=== PATIENT | male | born 1950 | race Hispanic/Latino ===

== ENCOUNTER 2017-01-28 19:09 | Inpatient (IN) | payer MEDICARE, BC ==
--- NOTE | 2017-01-28 19:17 | CP.PCM.CON ---
History of Present Illness - History of Present Illness History of Present Illness: Dr Colorado PMR consultation on Kb Park, born 1950, who has been admitted to [facility] for acute inpatient rehabilitation following an admission at [place]. + DKA with sugars >900. In coma for extended period. Started on emergent dialysis. 50 year history of type I diabetes had been well managed with minimal to no sequalae. He is now debilitated and has not been ambulating and is an excellent acute rehab candidate given all of the ongoing significant medical issues and limited gait and ADLs Review of Systems - Constitutional Constitutional: absent: Anorexia, Chills - EENT Eyes: absent: Change in Vision Nose/Mouth/Throat: absent: Nasal Congestion - Cardiovascular Cardiovascular: absent: Chest Pain - Respiratory Respiratory: absent: Dyspnea - Gastrointestinal Gastrointestinal: absent: Constipation - Genitourinary Genitourinary: Other (no voiding on HD) - Musculoskeletal Musculoskeletal: absent: Back Pain - Neurological Neurological: Focal Weakness (right foot weakness> left). absent: Abnormal Movements - Psychiatric Psychiatric: absent: Behavioral Changes, Change in Appetite Past Patient History - Past Social History Smoking Status: Never Smoked Chewing Tobacco Use: No Alcohol: Occasional Drugs: Denies Home Situation {Lives}: With Family - CARDIAC Hx Cardiac Disorders: Yes Hx Hypertension: Yes - NEUROLOGICAL Hx Seizures: Yes - RENAL Hx Dialysis: Yes (acute now) Hx Renal Failure: Yes - ENDOCRINE/METABOLIC Hx Endocrine Disorders: Yes Hx Diabetes Mellitus Type 1: Yes - HEMATOLOGICAL/ONCOLOGICAL Hx Cancer: Yes ([facility]) Meds Allergies/Adverse Reactions: Allergies Allergy/AdvReac Type Severity Reaction Status Date / Time Penicillins Allergy Severe RASH Verified 01/28/17 19:16 Physical Exam - Constitutional Appears: Non-toxic, No Acute Distress - Head Exam Head Exam: ATRAUMATIC, NORMAL INSPECTION, NORMOCEPHALIC - Eye Exam Eye Exam: EOMI - ENT Exam ENT Exam: Mucous Membranes Moist - Respiratory Exam Respiratory Exam: NORMAL BREATHING PATTERN - Cardiovascular Exam Cardiovascular Exam: REGULAR RHYTHM (2/6 NAYAN) - GI/Abdominal Exam GI & Abdominal Exam: absent: Distended, Firm - Extremities Exam Extremities exam: Positive for: pedal edema. Negative for: calf tenderness - Neurological Exam Neurological exam: Alert, CN II-XII Intact, Oriented x3 - Psychiatric Exam Psychiatric exam: Normal Affect, Normal Mood - Skin Skin Exam: Warm (+ vitiligo) Assessment & Plan - Assessment and Plan (Free Text) Assessment: DKA and metabolic encephalopathy PT/OT to continue to help increase functional independence Team conference for d/c planning Pain: controlled Vascular: no evidence of DVT GI: No evidence of constipation or diarrhea Patient is an excellent acute rehabilitation candidate and will have focused impairment code 02.9 PT, OT and recreational therapy to help facilitate a safe and appropriate d/c plan
--- NOTE | 2017-01-28 19:23 | CP.PCM.PN ---
Subjective - Date & Time of Evaluation Date of Evaluation: 01/28/17 Time of Evaluation: 19:21 - Subjective Subjective: weakness and acute RF secondary to DKA metabolic encephalopathy Physiatry Overall Plan of Care - Overall Plan of Care Estimated Length of Stay in Weeks: 2 Rehab Impairment: Mobility, Gait, Balance, Coordination Etiologic Diagnosis: Other (metabolic encephalopathy) Rehab/Medical Prognosis: Good - Anticipated Interventions Physical Therapy:: Yes Occupational Therapy:: Yes Speech Therapy:: No Recreational Therapy:: Yes - Therapy Goals Bed Mobility: Supervision Ambulation: Supervision Functional Positional Changes:: Supervision - Discharge Plan Discharge Destination: Home
--- NOTE | 2017-01-28 20:18 | CP.PCM.HP ---
History of Present Illness - History of Present Illness History of Present Illness: 66 yo male with history of IDDM, CAD (2 stents) and Seizure was found unresponsive by neighbors after they were alerted by his who was [place] the [place] at the time since he was not responding to her calls. [place] [facility] was found in DKA coma and suffering from acute respiratory failure and acute renal failure. He was intubated and admitted in ICU. Imaging showed he had pneumonia secondary to aspiration. IV antibiotics were started and he began to improve. DKA was managed with parenteral insulin. After 11 days on ventilator, patient was successfully extubated. He was also dialyzed 5 times via permacath on his right chest wall. Off ventilator patient was moved out of ICU. He also developed paroxysmal atrial fibrillation but was not sure whether it was in ICU. With him being bedridden and very weak he was transferred to [facility] so he could undergo PT in acute rehab. Prior to DKA patient was on insulin pump and was well controlled. Present on Admission - Present on Admission Any Indicators Present on Admission: Yes History of DVT/PE: No History of Uncontrolled Diabetes: Yes Decubitus Ulcer Present: Yes (sacral and both heels) Decubitus Ulcer Stage: II Review of Systems - Review of Systems All systems: reviewed and no additional remarkable complaints except (aside from those mentioned above, 12 point system review were negative by me) Past Patient History - Tetanus Immunizations Tetanus Immunization: Unknown - Past Medical History & Family History Past Medical History?: Yes - Past Social History Smoking Status: Never Smoked Chewing Tobacco Use: No Alcohol: Occasional Drugs: Denies Home Situation {Lives}: With Family - CARDIAC Hx Cardiac Disorders: Yes Hx Atrial Fibrillation: Yes (paroxysmal) Hx Heart Attack: Yes Hx Hypercholesterolemia: Yes Hx Hypertension: Yes Hx Peripheral Edema: Yes (on all limbs) - PULMONARY Hx Pneumonia: Yes (aspiration pneumonia) Hx Respiratory Aspiration: Yes - NEUROLOGICAL Hx Seizures: Yes - HEENT Hx HEENT Problems: No - RENAL Hx Dialysis: Yes (acute now) Type of Dialysis Access: hemodialysis Hx Renal Failure: Yes - ENDOCRINE/METABOLIC Hx Endocrine Disorders: Yes Hx Diabetes Mellitus Type 1: Yes - HEMATOLOGICAL/ONCOLOGICAL Hx Cancer: Yes (Non-Hodgkin Lymphoma) Hx Lymphoma: Yes - INTEGUMENTARY Hx Dermatological Problems: No - MUSCULOSKELETAL/RHEUMATOLOGICAL Hx Musculoskeletal Disorders: No - GASTROINTESTINAL Hx Gastrointestinal Disorders: No - GENITOURINARY/GYNECOLOGICAL Hx Genitourinary Disorders: No - PSYCHIATRIC Hx Psychophysiologic Disorder: No Meds Allergies/Adverse Reactions: Allergies Allergy/AdvReac Type Severity Reaction Status Date / Time Penicillins Allergy Severe RASH Verified 01/28/17 21:13 Physical Exam - Constitutional Appears: No Acute Distress - Head Exam Head Exam: ATRAUMATIC - Eye Exam Eye Exam: absent: Scleral icterus - ENT Exam ENT Exam: Mucous Membranes Moist - Neck Exam Neck exam: Negative for: Meningismus - Respiratory Exam Respiratory Exam: absent: Rhonchi, Wheezes, Respiratory Distress - Cardiovascular Exam Cardiovascular Exam: REGULAR RHYTHM, +S1, +S2 - GI/Abdominal Exam GI & Abdominal Exam: Soft. absent: Tenderness - Rectal Exam Rectal Exam: Deferred - Exam External exam: Lesions (abraded lesion on tip of urethral meatus) - Extremities Exam Extremities exam: Positive for: pedal edema (all 4 limbs were edematous) - Neurological Exam Neurological exam: Alert, Oriented x3 - Psychiatric Exam Psychiatric exam: Normal Affect - Skin Skin Exam: Dry, Intact Assessment & Plan (1) Metabolic encephalopathy Status: Resolved Comment: secondary to DKA. resolved but still with generalized weakness. physiatry consult with Dr Colorado. PT consult for evaluation and management (2) Diabetes mellitus type 1 Status: Acute Comment: BS uncontrolled. accuchek ACHS with Lispro coverage. endocrinology consult with Dr Singleton (3) ESRD (end stage renal disease) on dialysis Status: Acute Comment: renal consult with Dr Ch for management (4) Decubitus skin ulcer Status: Acute Comment: wound care consult (5) Afib Status: Acute Comment: rate controlled. continue Carvedilol. on Heparin (6) DVT prophylaxis Status: Acute Comment: Heparin 5000 units SC q 12hrs
[2017-01-28 21:11] VITALS: BMI 23.7
[2017-01-28] MEDS ORDERED: Insulin Lispro (humaLOG) 100 Units/ml Inj SC SCH (22:00)
[2017-01-28] MEDS ORDERED: levoFLOXacin 500 mg in D5W 500 MG/100 ML BAG IVPB SCH (23:15)
[2017-01-29] MEDS: Pantoprazole 40 mg EC Tab PO SCH (08:28)
[2017-01-29] MEDS: Sevelamer Carb 0.8 gm/Packet PO SCH ×3 (08:29→17:30)
[2017-01-29] MEDS: Insulin Lispro (humaLOG) 100 Units/ml Inj SC SCH ×4 (08:45→21:52)
[2017-01-29] MEDS ORDERED: Patient's Own Med (Rosuvastatin Calcium [Crestor] 40 MG) PO SCH ×2 (09:00)
[2017-01-29] MEDS ORDERED: Pantoprazole 40 mg EC Tab PO SCH (09:00)
[2017-01-29] MEDS ORDERED: Sevelamer Carb 0.8 gm/Packet PO SCH (09:00)
[2017-01-29] MEDS ORDERED: Insulin Lispro (humaLOG) 100 Units/ml Inj SC SCH ×3 (11:30→17:30)
--- NOTE | 2017-01-29 11:33 | CP.PCM.CON ---
History of Present Illness - History of Present Illness History of Present Illness: 66 yo male with PMH of DM, CAD, HTN that is transferred here for inpt rehab. He had a prolonged hospitalization in [facility] - complicated by ARF requiring HD, AFib , Sepsis, DKA w/ coma. He is overall now feeling much better but generally week. He was on a MWF hd schedule this wweek at [facility] and had HD yesterday. He denies any significant urine output. He is unaware of any hx of renal disease prior to this episode. ROS: a full detailed ROS is negative except as above famhx: no esrd sochx: no active smoke/etoh/ivdu all: pcn Past Patient History - Tetanus Immunizations Tetanus Immunization: Unknown - Past Medical History & Family History Past Medical History?: Yes - Past Social History Smoking Status: Never Smoked - CARDIAC Hx Cardiac Disorders: Yes Hx Hypercholesterolemia: Yes Hx Hypertension: Yes - PULMONARY Hx Pneumonia: Yes (aspiration pneumonia) Hx Respiratory Aspiration: Yes - NEUROLOGICAL Hx Seizures: Yes (hypoglycemic seizure) - HEENT Hx HEENT Problems: Yes Hx Deafness: Yes (left ear with hearing aid,pt.lost it) - RENAL Hx Chronic Kidney Disease: Yes Hx Dialysis: Yes (acute now) Type of Dialysis Access: hemodialysis Date of Last Dialysis Treatment: 01/28/17 Hx Renal Failure: Yes Other/Comment: not voiding anymore - ENDOCRINE/METABOLIC Hx Diabetes Mellitus Type 1: Yes - HEMATOLOGICAL/ONCOLOGICAL Hx AIDS: No Hx Blood Transfusions: No Hx Human Immunodeficiency Virus (HIV): No - INTEGUMENTARY Hx Dermatological Problems: No Other/Comment: vitilago - MUSCULOSKELETAL/RHEUMATOLOGICAL Hx Falls: No - GASTROINTESTINAL Hx Gastrointestinal Disorders: No - GENITOURINARY/GYNECOLOGICAL Hx Genitourinary Disorders: No Hx Hematuria: Yes (due to traumatic abdalla) Other/Comment: penile implant - PSYCHIATRIC Hx Substance Use: No - ANESTHESIA Hx Anesthesia: No Meds Allergies/Adverse Reactions: Allergies Allergy/AdvReac Type Severity Reaction Status Date / Time Penicillins Allergy Severe RASH Verified 01/28/17 21:13 - Medications Medications: Current Medications Aspirin (Aspirin Chewable) 81 mg PO DAILY [facility] Last Admin: 01/29/17 08:27 Dose: 81 mg Atorvastatin Calcium (Lipitor) 80 mg PO [facility] Carvedilol (Coreg) 12.5 mg PO BID [facility] Last Admin: 01/29/17 08:28 Dose: 12.5 mg Clopidogrel Bisulfate (Plavix) 75 mg PO DAILY [facility] Last Admin: 01/29/17 08:29 Dose: 75 mg Ezetimibe (Zetia) 10 mg PO DAILY [facility] Last Admin: 01/29/17 08:29 Dose: 10 mg Heparin Sodium (Porcine) (Heparin) 5,000 units SC Q12 [facility] PRN Reason: Protocol Hydralazine HCl (Apresoline) 50 mg PO TID [facility] Last Admin: 01/29/17 08:26 Dose: 50 mg Levofloxacin/Dextrose (Levaquin 500mg) 500 mg in 100 mls @ 100 mls/hr IVPB Q48H [facility] Insulin Detemir (Levemir) 12 units SC HS [facility] Insulin Human Lispro (Humalog) 0 units SC ACHS [facility] PRN Reason: Protocol Insulin Human Lispro (Humalog) 6 units SC AC [facility] Pantoprazole Sodium (Protonix Ec Tab) 40 mg PO DAILY [facility] Last Admin: 01/29/17 08:28 Dose: 40 mg Sevelamer Carbonate (Renvela) 0.8 gm PO TID [facility] Last Admin: 01/29/17 08:29 Dose: 0.8 gm Physical Exam - Head Exam Head Exam: ATRAUMATIC - Eye Exam Eye Exam: Normal appearance - ENT Exam ENT Exam: Mucous Membranes Moist - Neck Exam Neck exam: Positive for: Normal Inspection - Respiratory Exam Respiratory Exam: NORMAL BREATHING PATTERN - Cardiovascular Exam Cardiovascular Exam: +S1, +S2 - GI/Abdominal Exam GI & Abdominal Exam: Normal Bowel Sounds - Extremities Exam Additional comments: 1_+ edema - Neurological Exam Neurological exam: Alert, Oriented x3 - Psychiatric Exam Psychiatric exam: Normal Affect - Skin Skin Exam: Normal Color Results - Vital Signs Recent Vital Signs: Last Vital Signs Temp 97.9 F 01/29/17 09:12 Pulse 118 H 01/29/17 09:12 Resp 21 01/29/17 09:12 BP 172/77 H 01/29/17 09:12 Pulse Ox 98 01/29/17 09:12 - Labs Labs: Laboratory Results - last 24 hr 01/28/17 01/29/17 21:01 06:05 POC Glucose (mg/dL) 160 H 242 H Assessment & Plan - Assessment and Plan (Free Text) Assessment: ARF/ESRD/CAD/DM/HTN/ ANemia/Hyperphosphatemia/sepsis plan: TRACEY - oligoanuric - will continue HD MWF while here HTN: elevated - would suggest inc coreg and consider add norvasc. Would avoid cassia/arb as possibility of renal recovery sepsis: abx per primary secondary hyperpara; will check ipth. will check phos anemia will see if needs epo
--- NOTE | 2017-01-29 11:53 | CON ---
DATE: 01/28/2017 ENDOCRINOLOGY CONSULT LOCATION: Room 626. HISTORY OF PRESENT ILLNESS: This is a 66-year-old male with known history of type 2 insulin-requiring diabetes, previously on an insulin pump, who apparently was found unresponsive at home with symptomatic hypoglycemia and is now being referred for diabetic evaluation and management. PAST MEDICAL HISTORY: As mentioned above, the patient admits to using an insulin pump, but was not adherent to his protocol with extremes of glycemic fluctuations as noted. History of hypertensive cardiovascular disease and dyslipidemia, history of coronary artery disease with previous coronary stent placement, history of diabetic polyneuropathy, retinopathy, and underlying chronic kidney disease with a superimposed acute renal failure and currently on hemodialysis as noted. History of recent paroxysmal atrial fibrillation and currently on medications at this time. FAMILY HISTORY: Positive for diabetes and hypertension. SOCIAL HISTORY: The patient lives alone and has a supportive family. No known substance use. REVIEW OF SYSTEMS: As mentioned above, admits to generalized body weakness with easy fatigability and tiredness and suboptimal energy level. Also admits to episodic dizziness and lightheadedness, worse on the day of admission. She also admits to precordial chest pain. No recent fluctuations of bowel and urinary incontinence. PHYSICAL EXAMINATION: GENERAL/VITAL SIGNS: An average-built male in no apparent distress with a blood pressure of 150/90, pulse of 88 beats per minute regular, temperature 98, respirations 20, height is 5 feet 11 inches and weight is 170 pounds. HEENT: Head normocephalic. Eyes are anicteric with pink conjunctivae. Funduscopy is not possible at this time. Ears, nose, and throat are otherwise normal. NECK: Supple. Thyroid gland is normal in size. No carotid bruits or cervical adenopathy. CARDIOPULMONARY: Adynamic precordium. S1 and S2 are rapid and regular. LUNGS: Clear to auscultation. ABDOMEN: Flat, soft, with positive bowel sounds. EXTREMITIES: No peripheral edema. Pulses are +2 bilaterally. LABORATORY DATA: The chemistries are pending. The initial glucose was 160 mg/dL. ASSESSMENT AND PLAN: This is a 66-year-old male with uncontrolled and decompensated type 2 insulin-requiring diabetes with extremes of glycemic fluctuations from symptomatic hypoglycemia and associated neuroglycopenic and hyperadrenergic modifications were seen. We will modify the coverage scale to obvious hypoglycemia and detailed orders have been given. We will also add a basal and bolus insulin regimen as his oral intake improves accordingly. We will hold off any basal and bolus insulin regimen as indicated. Hemoglobin A1c will be done tomorrow by nurse practitioner and tight glycemic control and baseline thyroid status will be ordered. We will titrate incremental as indicated to optimize metabolic control. We will follow up with you. Payton Singleton MD
[2017-01-29] MEDS ORDERED: levoFLOXacin 500 mg in D5W 500 MG/100 ML BAG IVPB SCH ×2 (12:00→15:00)
[2017-01-29 13:18] LABS: HEMATOCRIT 26.2 % (35.0-51.0); MEAN CELL VOLUME 88.3 fl (80.0-94.0); RED CELL DISTRIBUTION WIDTH 14.3 % (11.5-14.5)
[2017-01-29 13:24] LABS: IRON 58 ug/dL (49-181)
[2017-01-29 13:26] LABS: ALKALINE PHOSPHATASE 205 U/L (38-126); ALT/SGPT 30 U/L (21-72); AST/SGOT 19 U/L (17-59); BILIRUBIN,TOTAL 0.9 mg/dl (0.2-1.3); BLOOD UREA NITROGEN 27 mg/dl (9-20); CALCIUM 7.7 mg/dL (8.4-10.2); CARBON DIOXIDE 23 mmol/L (22-30); CHLORIDE 88 mmol/L (98-107); GFR AFRICAN-AMERICAN 17; PHOSPHOROUS 5.1 mg/dl (2.5-4.5); POTASSIUM 4.1 MMOL/L (3.6-5.0); SODIUM 126 mmol/l (132-148); TOTAL PROTEIN 5.9 G/DL (6.3-8.2)
[2017-01-29 13:37] LABS: GLUCOSE,RANDOM 448 mg/dL (75-110)
[2017-01-29 15:11] LABS: THYROID STIMULATING HORMONE 4.61 mIU/ML (0.46-4.68)
--- NOTE | 2017-01-29 19:35 | PN ---
DATE: 01/29/2017 ENDOSCOPIC FOLLOWUP NOTE LOCATION: Room 626 SUBJECTIVE: This is a 66-year-old male with recent uncontrolled type 2 insulin-requiring diabetes with recent symptomatic hypoglycemia and diabetic coma with supervening metabolic encephalopathy and is now being and is now admitted here for acute rehabilitation and also being followed closely for metabolic management. His glycemic values are fluctuating as noted and the and the latest glucose levels have ranged from 386-462 mg/dL. The pre breakfast level this morning was 242 and the latest chemistry showed a BUN of 27, sodium 126, potassium 4.1, chloride 88, CO2 23, glucose 448, and creatinine 4.2. So at this time, we will modify once again his basal and bolus insulin regimen and increase the Levemir to 24 units subcu at bedtime daily to start tonight. We will also increase the Humalog to 12 units subcu t.i.d. before meals to start at dinnertime today as ordered. We will titrate incrementally as indicated to optimize metabolic control. We will follow and advise accordingly. We will obtain serial chemistries and supplement accordingly as needed. We will follow with you. Payton Singleton MD
[2017-01-29] MEDS: Silver Sulfadiazine 1% Cream (20 gm) TOP SCH ×2 (21:46→21:48)
[2017-01-29] MEDS ORDERED: Insulin Detemir 100 Units/ml Inj SC SCH ×3 (22:00)
[2017-01-30] MEDS: Insulin Lispro (humaLOG) 100 Units/ml Inj SC SCH ×6 (06:30→21:10)
[2017-01-30] MEDS ORDERED: Insulin Lispro (humaLOG) 100 Units/ml Inj SC SCH (07:30)
[2017-01-30] MEDS: Silver Sulfadiazine 1% Cream (20 gm) TOP SCH ×4 (08:52→20:26)
[2017-01-30] MEDS: Pantoprazole 40 mg EC Tab PO SCH (08:56)
[2017-01-30] MEDS: Sevelamer Carb 0.8 gm/Packet PO SCH ×3 (08:56→17:15)
--- NOTE | 2017-01-30 10:36 | CP.PCM.PN ---
Subjective - Date & Time of Evaluation Date of Evaluation: 01/30/17 Time of Evaluation: 10:00 - Subjective Subjective: Pt seen and examined. Feeling alright but refused Levemir last night because he was not comfortable taking it. He used to get regular insulin by pump before he got hospitalized. Objective - Vital Signs/Intake and Output Vital Signs (last 24 hours): Temp Pulse Resp BP Pulse Ox 97.8 F 82 19 117/50 L 96 01/30/17 08:30 01/30/17 10:16 01/30/17 08:30 01/30/17 10:16 01/30/17 08:30 - Medications Medications: Current Medications Aspirin (Aspirin Chewable) 81 mg PO DAILY [facility] Last Admin: 01/30/17 08:54 Dose: 81 mg Atorvastatin Calcium (Lipitor) 80 mg PO HS [facility] Last Admin: 01/29/17 21:54 Dose: 80 mg Carvedilol (Coreg) 25 mg PO Q12 [facility] Clopidogrel Bisulfate (Plavix) 75 mg PO DAILY [facility] Last Admin: 01/30/17 08:55 Dose: 75 mg Ezetimibe (Zetia) 10 mg PO DAILY [facility] Last Admin: 01/30/17 08:58 Dose: 10 mg Heparin Sodium (Porcine) (Heparin) 5,000 units SC Q12 [facility] PRN Reason: Protocol Last Admin: 01/30/17 08:55 Dose: 5,000 units Hydralazine HCl (Apresoline) 50 mg PO Q8 [facility] Levofloxacin/Dextrose (Levaquin 500mg) 500 mg in 100 mls @ 100 mls/hr IVPB Q48H [facility] Last Admin: 01/29/17 14:25 Dose: 100 mls/hr Insulin Detemir (Levemir) 40 units SC HS [facility] Insulin Human Lispro (Humalog) 0 units SC ACHS [facility] PRN Reason: Protocol Last Admin: 01/30/17 06:30 Dose: 5 units Insulin Human Lispro (Humalog) 30 units SC AC [facility] Pantoprazole Sodium (Protonix Ec Tab) 40 mg PO DAILY [facility] Last Admin: 01/30/17 08:56 Dose: 40 mg Sevelamer Carbonate (Renvela) 0.8 gm PO TID [facility] Last Admin: 01/30/17 08:56 Dose: 0.8 gm Silver Sulfadiazine (Silvadene 1% 20 Gm) 1 ea TOP Q12 [facility] Last Admin: 01/30/17 08:52 Dose: 1 ea Silver Sulfadiazine (Silvadene 1% 20 Gm) 0 ea TOP Q12 [facility] Last Admin: 01/30/17 08:57 Dose: 1 ea - Labs Labs: 01/29/17 13:00 01/29/17 13:00 - Constitutional Appears: No Acute Distress - Head Exam Head Exam: ATRAUMATIC - Eye Exam Eye Exam: absent: Scleral icterus - ENT Exam ENT Exam: Mucous Membranes Moist - Neck Exam Neck Exam: absent: Meningismus - Respiratory Exam Respiratory Exam: absent: Rhonchi, Wheezes, Respiratory Distress - Cardiovascular Exam Cardiovascular Exam: REGULAR RHYTHM, +S1, +S2 - GI/Abdominal Exam GI & Abdominal Exam: Soft. absent: Tenderness - Rectal Exam Rectal Exam: Deferred - Extremities Exam Extremities Exam: Pedal Edema (edema on all limbs improving (patient can now clinch his fists)) - Back Exam Back Exam: NORMAL INSPECTION - Neurological Exam Neurological Exam: Alert, Oriented x3 - Psychiatric Exam Psychiatric exam: Normal Affect - Skin Skin Exam: Dry, Intact Assessment and Plan (1) Metabolic encephalopathy Status: Resolved (2) Diabetes mellitus type 1 Status: Acute (3) ESRD (end stage renal disease) on dialysis Status: Acute (4) Decubitus skin ulcer Status: Acute (5) Afib Status: Acute (6) DVT prophylaxis Status: Acute - Assessment and Plan (Free Text) Assessment: 66 yo male with history of IDDM, CAD, HTN was transferred from [facility] to acute rehab after he was managed there for DKA with coma, Metabolic Encephalopathy, Acute Respiratory Failure, ARF requiring dialysis and Sepsis (1) Metabolic encephalopathy secondary to DKA. improved but still with generalized weakness. physiatry consult with Dr Colorado. continue PT and OT (2) Diabetes mellitus type 1 BS uncontrolled patient refused Levemir last night because he was not comfortable with it. He used to take only regular insulin via insulin pump endocrinology consult with Dr Singleton (3) ESRD (end stage renal disease) on dialysis renal consult with Dr Ch for management will need HD tomorrow (4) Decubitus skin ulcer wound care consult (5) Afib rate controlled. continue Carvedilol. continue Heparin to consider Eliquis 5mg PO BID tomorrow (6) DVT prophylaxis continue Heparin to consider Eliquis 5mg PO BID tomorrow
[2017-01-30] MEDS: Nystatin Ointment TOP SCH (17:14)
[2017-01-30 21:54] LABS: ABG ALLEN TEST YES; ARTERIAL BLOOD GAS HCO3 31.6 mmol/L (21-28); ARTERIAL BLOOD GAS O2 CONTENT 11.5 ML/dL (15-23); ARTERIAL BLOOD GAS PH 7.57 (7.35-7.45); ARTERIAL BLOOD GAS PO2 54 mm/Hg (80-100); ARTERIAL BLOOD HGB O2 SAT 92.6 % (95.0-98.0); CARBOXYHEMOGLOBIN 1.9 % (0.5-1.5); HHB 3.9 % (0.0-5.0); METHEMOGLOBIN 1.6 % (0.0-3.0)
[2017-01-30] MEDS: Insulin Detemir 100 Units/ml Inj SC SCH (22:14)
[2017-01-31] MEDS: Insulin Lispro (humaLOG) 100 Units/ml Inj SC SCH ×7 (06:30→22:59)
[2017-01-31 07:04] LABS: ALB/GLOB RATIO 0.9 (1.0-2.1); BILIRUBIN,TOTAL 0.7 mg/dl (0.2-1.3); CALCIUM 7.9 mg/dL (8.4-10.2); POTASSIUM 3.6 MMOL/L (3.6-5.0); TOTAL PROTEIN 5.5 G/DL (6.3-8.2)
--- NOTE | 2017-01-31 07:55 | PN ---
DATE: ENDO FOLLOWUP NOTE LOCATION: Room 626, Rehab Unit. SUBJECTIVE: This is a 66-year-old male with known history of type 1 insulin-dependent diabetes, presenting here from the [facility] following a diabetic ketoacidosis with extremes of glycemic fluctuations and is now being followed closely for metabolic management. His glycemic levels have been quite fluctuating overnight as the patient refused the Levemir given as basal insulin at 30 units subcutaneous at bedtime daily and the first dose was supposed to be last night, which the patient refused as noted. Supervening expected hyperglycemic accelerations were noted today with glucose values being 451 mg/dL at internet marketing director today as noted. His glucose values have been fluctuating have ranged from 269 to 291 and 386 mg/dL last night. LABORATORY DATA: His latest chemistry shows a BUN of 27, sodium 126, potassium 4.1, chloride 88, CO2 of 23, glucose 448 and creatinine 4.2. PLAN: So, at this time, we will actually modify once again his basal and bolus insulin regimen and increase the Levemir to 40 units subcutaneous at bedtime daily to start tonight. We will also increase the Humalog to 30 units subcutaneous t.i.d. before meals to start at dinner time today as ordered. We will titrate incrementally as indicated to optimize metabolic control. A very lengthy bedside discussion was undertaken with the patient and his Dianne regarding the implications of extremes of glycemic fluctuations especially in the light of recent major complications when he was admitted at [facility]. We will actually also call our [employer] Pump specialist, Ms. Dianne Ro regarding the need to come over to the hospital to check out the patient's pump as this was actually the main culprit for the patient going into DKA with the previous hospitalization at the [facility]. Tubing was actually dislodged unknowingly overnight causing the morbidly diabetic coma as noted. The patient at this time agreed to go for the intensive insulin therapy pending the use of his [employer] insulin pump. A very lengthy bedside discussion is undertaken with both the patient and his regarding the need to watch for further microvascular complications especially in the light of recent kidney failure and initiation of hemodialysis as noted. We will also obtain serial chemistries and supplement accordingly as needed. We will follow with you. Payton Singleton MD [facility] # [id number]
[2017-01-31] MEDS: Nystatin Ointment TOP SCH ×3 (08:43→17:05)
[2017-01-31] MEDS: Silver Sulfadiazine 1% Cream (20 gm) TOP SCH ×2 (08:48)
[2017-01-31] MEDS: Pantoprazole 40 mg EC Tab PO SCH (08:49)
[2017-01-31] MEDS: Sevelamer Carb 0.8 gm/Packet PO SCH ×3 (08:49→17:05)
--- NOTE | 2017-01-31 09:12 | RAD ---
PROCEDURE: CHEST RADIOGRAPH, 1 VIEW HISTORY: low O2 sat COMPARISON: None available. FINDINGS: LUNGS: Ground-glass bilateral heterogeneous infiltrates are identified. PLEURA: No pneumothorax or pleural fluid seen. CARDIOVASCULAR: Hypervascular changes are suspected at a "Bat wing" pattern suspicious for pulmonary venous congestion. Further clinical correlation is advised. Jerman B-lines are identified particularly at the left side. Cardiac silhouette appears normal in size however. OSSEOUS STRUCTURES: No significant abnormalities. VISUALIZED UPPER ABDOMEN: Normal. OTHER FINDINGS: None. IMPRESSION: Active CHF suspected. Clinically correlate. Heterogeneous infiltrates of the differential diagnosis, potentially pneumonia.
[2017-01-31] MEDS: levoFLOXacin 500 mg in D5W 500 MG/100 ML BAG IVPB SCH (11:24)
--- NOTE | 2017-01-31 11:59 | CP.PCM.PN ---
Subjective - Date & Time of Evaluation Date of Evaluation: 01/31/17 Time of Evaluation: 11:56 - Subjective Subjective: Patient sitting up in the chair Awake and conscious His at the bedside No chest pain Complaining of severe leg swollen Objective - Vital Signs/Intake and Output Vital Signs (last 24 hours): Temp Pulse Resp BP Pulse Ox 97.9 F 109 H 20 143/68 95 01/31/17 08:19 01/31/17 08:46 01/31/17 08:19 01/31/17 08:46 01/31/17 08:19 - Medications Medications: Current Medications Aspirin (Aspirin Chewable) 81 mg PO DAILY [facility] Last Admin: 01/31/17 08:46 Dose: 81 mg Atorvastatin Calcium (Lipitor) 80 mg PO HS [facility] Last Admin: 01/30/17 22:13 Dose: 80 mg Carvedilol (Coreg) 25 mg PO Q12 [facility] Last Admin: 01/31/17 08:46 Dose: 25 mg Clopidogrel Bisulfate (Plavix) 75 mg PO DAILY [facility] Last Admin: 01/31/17 08:49 Dose: 75 mg Ezetimibe (Zetia) 10 mg PO DAILY [facility] Last Admin: 01/31/17 08:48 Dose: 10 mg Epoetin Panchito (Procrit) 4,000 unit IV MWF [facility] Heparin Sodium (Porcine) (Heparin) 5,000 units SC Q12 [facility] PRN Reason: Protocol Last Admin: 01/31/17 08:47 Dose: 5,000 units Hydralazine HCl (Apresoline) 50 mg PO Q8 [facility] Last Admin: 01/31/17 05:33 Dose: 50 mg Levofloxacin/Dextrose (Levaquin 500mg) 500 mg in 100 mls @ 100 mls/hr IVPB QOTHERDAY@1200 [facility] Last Admin: 01/31/17 11:24 Dose: 100 mls/hr Insulin Detemir (Levemir) 40 units SC HS [facility] Last Admin: 01/30/17 22:14 Dose: 40 units Insulin Human Lispro (Humalog) 0 units SC ACHS [facility] PRN Reason: Protocol Last Admin: 01/31/17 11:07 Dose: Not Given Insulin Human Lispro (Humalog) 30 units SC AC [facility] Last Admin: 01/31/17 08:43 Dose: 30 unit Nystatin (Mycostatin Oint) 1 applic TOP TID [facility] Last Admin: 01/31/17 08:43 Dose: 1 oin Pantoprazole Sodium (Protonix Ec Tab) 40 mg PO DAILY [facility] Last Admin: 01/31/17 08:49 Dose: 40 mg Sevelamer Carbonate (Renvela) 0.8 gm PO TID [facility] Last Admin: 01/31/17 08:49 Dose: 0.8 gm Silver Sulfadiazine (Silvadene 1% 20 Gm) 1 ea TOP Q12 [facility] Last Admin: 01/31/17 08:48 Dose: 1 ea Silver Sulfadiazine (Silvadene 1% 20 Gm) 0 ea TOP Q12 [facility] Last Admin: 01/31/17 08:48 Dose: 1 ea - Labs Labs: 01/29/17 13:00 01/31/17 06:00 - Constitutional Appears: No Acute Distress - ENT Exam ENT Exam: Mucous Membranes Moist - Respiratory Exam Respiratory Exam: absent: Chest Wall Tenderness - Cardiovascular Exam Cardiovascular Exam: absent: JVD, Rubs - GI/Abdominal Exam GI & Abdominal Exam: Normal Bowel Sounds - Extremities Exam Extremities Exam: absent: Calf Tenderness - Back Exam Back Exam: absent: CVA tenderness (L), CVA tenderness (R) - Neurological Exam Neurological Exam: Alert Assessment and Plan (1) ESRD (end stage renal disease) on dialysis Assessment & Plan: TRACEY - oligoanuric - will continue HD MWF while here HTN: elevated - would suggest inc coreg and consider add norvasc. Would avoid cassia/arb as possibility of renal recovery sepsis: abx per primary secondary hyperpara; will check ipth. will check phos anemia will start EPO Serum profile and ferritin level Patient has significant leg edema 3+ We will try to ultrafiltrate about 2500 mL as tolerated. Status: Acute
--- NOTE | 2017-01-31 14:29 | PN ---
LOCATION: Room 626. SUBJECTIVE: This is a 66-year-old male with recent uncontrolled type 2 insulin requiring diabetes, now being followed closely for metabolic management. His glycemic levels are fluctuating but much improved at this time and the latest glucose levels have ranged from 90 to 135 mg/dL. LABORATORY DATA: His latest chemistry showed a BUN of 50, sodium 129, potassium 3.6, chloride 90, CO2 of 27, glucose 92 and creatinine 6.4. His latest hemoglobin A1c is 8.2% which is really indicative of suboptimal metabolic control of his diabetic condition. PLAN: So at this time, we are actually waiting for the [employer] pump specialist to come in to check his insulin pump and if it is okay, then we can resume the use of his insulin pump while in the hospital which will give him continuous infusion of Humalog insulin as noted. For now, we will continue more physiologic basal and bolus insulin regimen as ordered with Humalog given as 30 units before each meal t.i.d. and Levemir given as 40 units subcu at bedtime daily as given. We will titrate incrementally as indicated to optimize metabolic control. We also continue the low dose correction scale using Humalog insulin as given. We will follow. Payton Singleton MD
[2017-01-31] MEDS ORDERED: Iodine 0.9% GEL TOP SCH (14:30)
--- NOTE | 2017-01-31 20:41 | CARD ---
APPROVED REPORT EXAM: Two-dimensional and M-mode echocardiogram with Doppler and color Doppler. Other Information Quality : GoodRhythm : NSR INDICATION Congestive Heart Failure 2D DIMENSIONS IVSd1.30 (0.7-1.1cm)LVDd4.94 (3.9-5.9cm) LVOT Diameter2.11 (1.8-2.4cm)PWd1.18 (0.7-1.1cm) IVSs1.53 (0.8-1.2cm)LVDs3.16 (2.5-4.0cm) FS (%) 36.0 %PWs1.75 (0.8-1.2cm) LVEF (%)55.0 (>50%) M-Mode DIMENSIONS Left Atrium (MM)3.88 (2.5-4.0cm)IVSd1.09 (0.7-1.1cm) Aortic Root2.88 (2.2-3.7cm)LVDd5.00 (4.0-5.6cm) Aortic Cusp Exc.1.88 (1.5-2.0cm)PWd1.26 (0.7-1.1cm) IVSs1.53 cmFS (%) 36 % LVDs3.18 (2.0-3.8cm)PWs1.65 cm Mitral Valve MV E Crvyznso891.7cm/sMV DECEL [id number] A Yxlmnpmx99.3cm/s MV FQO21nsL/A ratio1.8MVA (PHT)4.58cm2 TDI Lateral E' Peak V10.35cm/sMedial E' Peak V5.62cm/sE/Lateral E'10.2 E/Medial E'18.8 Pulmonary Valve PV Peak Mptcvcxn34.3cm/s LEFT VENTRICLE The left ventricle is normal size. There is moderate concentric left ventricular hypertrophy. The left ventricular function is normal. The left ventricular ejection fraction is within the normal range. There is normal LV segmental wall motion. Transmitral Doppler flow pattern is Grade II-pseudonormal filling dynamics. RIGHT VENTRICLE The right ventricle is normal size. There is normal right ventricular wall thickness. The right ventricular systolic function is normal. ATRIA The left atrium size is normal. The right atrium size is normal. AORTIC VALVE The aortic valve is moderately sclerotic. No aortic regurgitation is present. There is no aortic valvular stenosis. MITRAL VALVE The mitral valve is moderately thickened. There is no mitral valve stenosis. Mitral regurgitation is trace to mild. TRICUSPID VALVE The tricuspid valve is normal in structure and function. There is no tricuspid valve regurgitation noted. PULMONIC VALVE The pulmonary valve is normal in structure and function. There is no pulmonic valvular regurgitation. GREAT VESSELS The aortic root is normal in size. The IVC is normal in size and collapses >50% with inspiration. PERICARDIAL EFFUSION The pericardium appears normal. <Conclusion> The left ventricle is normal size. There is moderate concentric left ventricular hypertrophy. The left ventricular function is normal. The left ventricular ejection fraction is within the normal range. There is normal LV segmental wall motion. Transmitral Doppler flow pattern is Grade II-pseudonormal filling dynamics.
[2017-01-31] MEDS: Insulin Detemir 100 Units/ml Inj SC SCH (21:31)
[2017-02-01 03:44] LABS: BASO % 0.5 % (0.0-2.0); EOS # 0.1 K/uL (0.0-0.7); EOS % 0.9 % (0.0-4.0); HEMATOCRIT 24.3 % (35.0-51.0); LYMPH # 0.8 K/uL (1.0-4.3); MEAN CELL VOLUME 86.3 fl (80.0-94.0); MEAN CORPUSCULAR HEMOGLOBIN 30.5 pg (27.0-31.0); MEAN CORPUSCULAR HGB CONC 35.4 g/dL (33.0-37.0); MEAN PLATELET VOLUME 7.8 fl (7.2-11.7); MONO # 0.8 K/uL (0.0-0.8); NEUT # 5.8 K/uL (1.8-7.0); NEUT % 77.6 % (50.0-75.0); NRBC % 0.1 % (0.0-0.0); WHITE BLOOD COUNT 7.5 K/uL (4.8-10.8)
[2017-02-01 04:36] LABS: IRON 26 ug/dL (49-181)
[2017-02-01] MEDS: Epoetin Alfa 4000 UNIT/ML Inj IV SCH (05:48)
[2017-02-01] MEDS: Insulin Lispro (humaLOG) 100 Units/ml Inj SC SCH ×4 (06:35→12:20)
[2017-02-01] MEDS: Iodine 0.9% GEL TOP SCH (06:36)
[2017-02-01] MEDS: Nystatin Ointment TOP SCH ×3 (08:17→17:25)
[2017-02-01] MEDS: Pantoprazole 40 mg EC Tab PO SCH (08:18)
[2017-02-01] MEDS: Sevelamer Carb 0.8 gm/Packet PO SCH ×3 (08:18→17:26)
--- NOTE | 2017-02-01 08:57 | CARD ---
APPROVED REPORT EKG Measurement Heart [id number] <Conclusion> Normal sinus rhythm Anteroseptal infarct, age undetermined ST & T wave abnormality, consider lateral ischemia Abnormal ECG
--- NOTE | 2017-02-01 10:54 | CP.PCM.PN ---
Subjective - Date & Time of Evaluation Date of Evaluation: 02/01/17 Time of Evaluation: 10:52 - Subjective Subjective: Patient awake consciousness he completed dialysis Vital signs stable Patient to receive physiotherapy And to keep fluid restriction I order serum phosphorus and PTH Objective - Vital Signs/Intake and Output Vital Signs (last 24 hours): Temp Pulse Resp BP Pulse Ox 97.5 F L 93 H 22 137/58 L 96 02/01/17 08:20 02/01/17 08:20 02/01/17 08:20 02/01/17 08:20 02/01/17 08:20 - Medications Medications: Current Medications Aspirin (Aspirin Chewable) 81 mg PO DAILY [facility] Last Admin: 02/01/17 08:18 Dose: 81 mg Atorvastatin Calcium (Lipitor) 80 mg PO HS [facility] Last Admin: 01/31/17 21:25 Dose: 80 mg Cadexomer Iodine (Iodosorb) 1 applic TOP 0600 [facility] Last Admin: 02/01/17 06:36 Dose: 1 applic Carvedilol (Coreg) 25 mg PO Q12 [facility] Last Admin: 02/01/17 08:19 Dose: 25 mg Clopidogrel Bisulfate (Plavix) 75 mg PO DAILY [facility] Last Admin: 02/01/17 08:18 Dose: 75 mg Ezetimibe (Zetia) 10 mg PO DAILY [facility] Last Admin: 02/01/17 08:18 Dose: 10 mg Epoetin Panchito (Procrit) 4,000 unit IV MWF [facility] Last Admin: 02/01/17 05:48 Dose: 4,000 unit Heparin Sodium (Porcine) (Heparin) 5,000 units SC Q12 [facility] PRN Reason: Protocol Last Admin: 02/01/17 08:15 Dose: 5,000 units Hydralazine HCl (Apresoline) 50 mg PO Q8 [facility] Last Admin: 02/01/17 06:35 Dose: 50 mg Levofloxacin/Dextrose (Levaquin 500mg) 500 mg in 100 mls @ 100 mls/hr IVPB QOTHERDAY@1200 [facility] Last Admin: 01/31/17 11:24 Dose: 100 mls/hr Insulin Detemir (Levemir) 40 units SC HS [facility] Last Admin: 01/31/17 21:31 Dose: 40 units Insulin Human Lispro (Humalog) 0 units SC ACHS [facility] PRN Reason: Protocol Last Admin: 02/01/17 06:35 Dose: Not Given Insulin Human Lispro (Humalog) 20 units SC AC [facility] Last Admin: 02/01/17 08:08 Dose: 20 u Nystatin (Mycostatin Oint) 1 applic TOP TID [facility] Last Admin: 02/01/17 08:17 Dose: 1 oin Pantoprazole Sodium (Protonix Ec Tab) 40 mg PO DAILY [facility] Last Admin: 02/01/17 08:18 Dose: 40 mg Sevelamer Carbonate (Renvela) 0.8 gm PO TID [facility] Last Admin: 02/01/17 08:18 Dose: 0.8 gm - Labs Labs: 02/01/17 03:30 01/31/17 06:00 - Constitutional Appears: No Acute Distress - ENT Exam ENT Exam: Mucous Membranes Moist - Respiratory Exam Respiratory Exam: absent: Chest Wall Tenderness - Cardiovascular Exam Cardiovascular Exam: absent: JVD, Rubs - Extremities Exam Extremities Exam: absent: Calf Tenderness - Back Exam Back Exam: absent: CVA tenderness (L), CVA tenderness (R) - Neurological Exam Neurological Exam: Alert Assessment and Plan (1) ESRD (end stage renal disease) on dialysis Assessment & Plan: End stage renal disease is receiving hemodialysis as scheduled for Tuesday Anemia started on EPO check phosphorus and PTH Status: Acute
--- NOTE | 2017-02-01 11:01 | CP.PCM.CON ---
History of Present Illness - History of Present Illness History of Present Illness: 66 yo male with history of IDDM, CAD (2 stents) and Seizure was found unresponsive by neighbors after they were alerted [place] the time since he was not responding to her calls. [place] [facility] [place] in [place] coma and suffering from acute respiratory failure and acute renal failure. He was intubated and admitted in ICU. Imaging showed he had pneumonia secondary to aspiration. IV antibiotics were started and he began to improve. DKA was managed with parenteral insulin. After 11 days on ventilator, patient was successfully extubated. He was also dialyzed 5 times via permacath on his right chest wall. Off ventilator patient was moved out of ICU. He also developed paroxysmal atrial fibrillation but was not sure whether it was in ICU. With him being bedridden and very weak he was transferred to [facility] so he could undergo PT in acute rehab. Prior to DKA patient was on insulin pump and was well controlled. Pt is now AAO x 3 his only c/o is of weakness in his legs EKG: NSR Past Patient History - Tetanus Immunizations Tetanus Immunization: Unknown - Past Medical History & Family History Past Medical History?: Yes - Past Social History Smoking Status: Never Smoked - CARDIAC Hx Cardiac Disorders: Yes Hx Hypercholesterolemia: Yes Hx Hypertension: Yes - PULMONARY Hx Pneumonia: Yes (aspiration pneumonia) Hx Respiratory Aspiration: Yes - NEUROLOGICAL Hx Seizures: Yes (hypoglycemic seizure) - HEENT Hx HEENT Problems: Yes Hx Deafness: Yes (left ear with hearing aid,pt.lost it) - RENAL Hx Chronic Kidney Disease: Yes Hx Dialysis: Yes (acute now) Type of Dialysis Access: hemodialysis Date of Last Dialysis Treatment: 01/28/17 Hx Renal Failure: Yes Other/Comment: not voiding anymore - ENDOCRINE/METABOLIC Hx Diabetes Mellitus Type 1: Yes - HEMATOLOGICAL/ONCOLOGICAL Hx AIDS: No Hx Blood Transfusions: No Hx Human Immunodeficiency Virus (HIV): No - INTEGUMENTARY Hx Dermatological Problems: No Other/Comment: vitilago - MUSCULOSKELETAL/RHEUMATOLOGICAL Hx Falls: No - GASTROINTESTINAL Hx Gastrointestinal Disorders: No - GENITOURINARY/GYNECOLOGICAL Hx Genitourinary Disorders: No Hx Hematuria: Yes (due to traumatic abdalla) Other/Comment: penile implant - PSYCHIATRIC Hx Substance Use: No - ANESTHESIA Hx Anesthesia: No Meds Allergies/Adverse Reactions: Allergies Allergy/AdvReac Type Severity Reaction Status Date / Time Penicillins Allergy Severe RASH Verified 01/28/17 21:13 - Medications Medications: Current Medications Aspirin (Aspirin Chewable) 81 mg PO DAILY [facility] Last Admin: 02/01/17 08:18 Dose: 81 mg Atorvastatin Calcium (Lipitor) 80 mg PO HS [facility] Last Admin: 01/31/17 21:25 Dose: 80 mg Cadexomer Iodine (Iodosorb) 1 applic TOP 0600 [facility] Last Admin: 02/01/17 06:36 Dose: 1 applic Carvedilol (Coreg) 25 mg PO Q12 [facility] Last Admin: 02/01/17 08:19 Dose: 25 mg Clopidogrel Bisulfate (Plavix) 75 mg PO DAILY [facility] Last Admin: 02/01/17 08:18 Dose: 75 mg Ezetimibe (Zetia) 10 mg PO DAILY [facility] Last Admin: 02/01/17 08:18 Dose: 10 mg Epoetin Panchito (Procrit) 4,000 unit IV MWF [facility] Last Admin: 02/01/17 05:48 Dose: 4,000 unit Heparin Sodium (Porcine) (Heparin) 5,000 units SC Q12 [facility] PRN Reason: Protocol Last Admin: 02/01/17 08:15 Dose: 5,000 units Hydralazine HCl (Apresoline) 50 mg PO Q8 [facility] Last Admin: 02/01/17 06:35 Dose: 50 mg Levofloxacin/Dextrose (Levaquin 500mg) 500 mg in 100 mls @ 100 mls/hr IVPB QOTHERDAY@1200 [facility] Last Admin: 01/31/17 11:24 Dose: 100 mls/hr Insulin Detemir (Levemir) 40 units SC [facility] Last Admin: 01/31/17 21:31 Dose: 40 units Insulin Human Lispro (Humalog) 0 units SC ACHS [facility] PRN Reason: Protocol Last Admin: 02/01/17 06:35 Dose: Not Given Insulin Human Lispro (Humalog) 20 units SC AC [facility] Last Admin: 02/01/17 08:08 Dose: 20 u Nystatin (Mycostatin Oint) 1 applic TOP TID [facility] Last Admin: 02/01/17 08:17 Dose: 1 oin Pantoprazole Sodium (Protonix Ec Tab) 40 mg PO DAILY [facility] Last Admin: 02/01/17 08:18 Dose: 40 mg Sevelamer Carbonate (Renvela) 0.8 gm PO TID [facility] Last Admin: 02/01/17 08:18 Dose: 0.8 gm Physical Exam - Respiratory Exam Respiratory Exam: NORMAL BREATHING PATTERN - Cardiovascular Exam Cardiovascular Exam: REGULAR RHYTHM Results - Vital Signs Recent Vital Signs: Last Vital Signs Temp 97.5 F L 02/01/17 08:20 Pulse 93 H 02/01/17 08:20 Resp 22 02/01/17 08:20 BP 137/58 L 02/01/17 08:20 Pulse Ox 96 02/01/17 08:20 - Labs Result Diagrams: 02/01/17 03:30 01/31/17 06:00 Labs: Laboratory Results - last 24 hr 01/29/17 01/31/17 01/31/17 13:00 06:00 11:01 WBC RBC Hgb Hct MCV MCH MCHC RDW Plt Count MPV Neut % (Auto) Lymph % (Auto) Bee % (Auto) Eos % (Auto) Baso % (Auto) Neut # Lymph # Bee # Eos # Baso # POC Glucose (mg/dL) 135 H Hemoglobin A1c 8.2 H Iron TIBC % Saturation Ferritin PTH Intact Whole Molec 139 H 01/31/17 01/31/17 01/31/17 16:31 16:34 16:52 WBC RBC Hgb Hct MCV MCH MCHC RDW Plt Count MPV Neut % (Auto) Lymph % (Auto) Bee % (Auto) Eos % (Auto) Baso % (Auto) Neut # Lymph # Bee # Eos # Baso # POC Glucose (mg/dL) 35 L* 35 L* 68 Hemoglobin A1c Iron TIBC % Saturation Ferritin PTH Intact Whole Molec 01/31/17 01/31/17 02/01/17 17:10 20:49 03:26 WBC RBC Hgb Hct MCV MCH MCHC RDW Plt Count MPV Neut % (Auto) Lymph % (Auto) Bee % (Auto) Eos % (Auto) Baso % (Auto) Neut # Lymph # Bee # Eos # Baso # POC Glucose (mg/dL) 81 181 H Hemoglobin A1c Iron 26 L TIBC 220 L % Saturation 12 L Ferritin PTH Intact Whole Molec 02/01/17 02/01/17 02/01/17 03:26 03:30 05:54 WBC 7.5 RBC 2.82 L Hgb 8.6 L Hct 24.3 L MCV 86.3 D MCH 30.5 MCHC 35.4 RDW 15.0 H Plt Count 280 MPV 7.8 Neut % (Auto) 77.6 H Lymph % (Auto) 10.0 L Bee % (Auto) 11.0 H Eos % (Auto) 0.9 Baso % (Auto) 0.5 Neut # 5.8 Lymph # 0.8 L Bee # 0.8 Eos # 0.1 Baso # 0.0 POC Glucose (mg/dL) 100 Hemoglobin A1c Iron TIBC % Saturation Ferritin 309.0 PTH Intact Whole Molec Assessment & Plan (1) Atrial fibrillation Assessment and Plan: we only have verbal Hx of this Will continue to follow Status: Acute (2) Diabetes mellitus type 1 Status: Acute (3) ESRD (end stage renal disease) on dialysis Status: Acute (4) Metabolic encephalopathy Status: Resolved
--- NOTE | 2017-02-01 16:10 | PSY.TMCNF ---
Nursing - Vital Signs Vital Signs (Last 8 hours): Vital Signs 02/01/17 02/01/17 02/01/17 08:19 08:20 13:00 Temperature 97.5 F L 97.9 F Pulse Rate 93 H 93 H 77 Respiratory 22 19 Rate Blood Pressure 137/58 L 137/58 L 111/51 L O2 Sat by Pulse 96 97 Oximetry 02/01/17 13:30 Temperature Pulse Rate 77 Respiratory Rate Blood Pressure 111/51 L O2 Sat by Pulse Oximetry Pain: 0 - Precautions: Precautions: Fall Prevention, Cardiac/Pulmonary, Pressure Ulcer - Medications/Other Issues Comment: On heparin SQ - Consults Comment: Nephro-. ENDO-. PSYCHOLOGIST- pending Dr. Sosa - Wound Sacrum Wound Type: Pressure Ulcer Wound Stage: STAGE II Wound Shape: Irregular Periwound: Reddened Wound Drainage Amount: None Wound Drainage Description: Serosanguineous Wound Drainage Odor: None/Absent Wound General Appearance: Reddened Wound Dressing Status: Dry & Intact Dressing Changed: Yes Wound Primary Dressing Type: Gauze Roll/Wrap - Toileting Toileting: Minimal Assistance - Bladder Management Bladder Management: Minimal Assistance Frequency of Accidents: NONE - Bowel Management Bowel Pattern: Normal Bowel Management: Minimal Assistance Frequency of Accidents: NONE - Transfers Transfers: Minimal Assistance - ADL's ADL's: Minimal Assistance - Pain Management Comments: DENIES - Goals/Time Frame Comments: FALL PREVENTION - Provider Provider: JENNIFER Holder Physical Therapy - Bed Mobility Bed Mobility: Verbal Cues, Contact Guard, Minimal Assistance - Transfers Wheelchair to Mat: Verbal Cues, Contact Guard, Minimal Assistance Sit to Stand: Verbal Cues, Contact Guard, Minimal Assistance Comment: RW - Ambulation Level of Assistance: Contact Guard, Minimal Assistance Distance (ft.): 80 Assistive Devices: Rolling Walker - Stair Negotiation Stairs: Level of Assistance: Verbal Cues, Minimal Assistance, Moderate Assistance Number of Stairs: 6 Stairs: Assistive Devices: Left Handrail, Right Handrail - Standing Balance Static Stand: Contact Guard Assist Dynamic Stand: Minimal Assistance, Moderate Assistance Comment: RW - Pain Pain (assessed during therapy session): 0 - Insight/Carryover Insight/Carryover: Good - Patient/Family Education Comment: -safety, use of call yi, elevation of extremities, mobility, postural control, therapy schedule, therapy goals, POC - Assessment/Plan Assessment: Mr. Park continues to require frequent rest breaks during therapy session due to impaired activity tolerance and some weakness. Patient has stable vitals but some SOB on exertion after gait trials. Patient has impaired strength and range of motion in lower extremities which impairs his mobility. Pt will benefit from skilled therapy services to maximize safety and independence with all mobility prior to home discharge with home services and support of family. - Goals Timeframe: 7 days Goals: -pt to negotiate 5 steps with 2 HRs with CGA. -pt to ambulate 150' with a RW with CGA. -transfers: sit<>stand CGA. -bed/mat mobility: supine<>sit CS and rolling with CS - Provider License Number: [id number] Occupational Therapy - Arousal/Attention/Orientation Patient Orientation: Person, Place, Time, Appropriate to Age, Appropriate to Situation - ADL/IADL Self Feeding: Supervision, Set-up Help Grooming: Supervision, Set-up Help Dressing-Upper Extremity: Supervision, Set-up Help Dressing-Lower Extremity: Moderate Assistance - Sitting Balance Static Sitting: Supervision Dynamic Sitting: Requires supervision - Transfers Wheelchair to Bed Transfers: Moderate Assistance Toilet Transfers: Moderate Assistance - Upper Extremity Status Right Upper Extremity Comment: ROM WFL, MMT grossly 4/5 Left Upper Extremity Comment: ROM WFL, MMT grossly 4/5 - Pain Pain (assessed during therapy session): 0 - Insight/Carryover Insight/Carryover: Good - Patient/Family Education Comment: -safety, use of call yi, elevation of extremities, mobility, postural control, therapy schedule, therapy goals, POC - Assessment/Plan Assessment: Mr. Park continues to require frequent rest breaks during therapy session due to impaired activity tolerance and some weakness. Patient has stable vitals but some SOB on exertion after gait trials. Patient has impaired strength and range of motion in lower extremities which impairs his mobility. Pt will benefit from skilled therapy services to maximize safety and independence with all mobility prior to home discharge with home services and support of family. - Goals Timeframe: 7 days Goals: -pt to negotiate 5 steps with 2 HRs with CGA. -pt to ambulate 150' with a RW with CGA. -transfers: sit<>stand CGA. -bed/mat mobility: supine<>sit CS and rolling with CS - Provider Therapist: Amrita Acosta Speech Therapy - Plan Assessment: Mr. Park continues to require frequent rest breaks during therapy session due to impaired activity tolerance and some weakness. Patient has stable vitals but some SOB on exertion after gait trials. Patient has impaired strength and range of motion in lower extremities which impairs his mobility. Pt will benefit from skilled therapy services to maximize safety and independence with all mobility prior to home discharge with home services and support of family. Recreational Therapy - Participation Participation: Monitors His/Her Own Leisure Time - Attendance Attendance: Daily - Activities Leisure Activities: Television - Socialization Level of Socialization: Initiates/interacts freely with care givers and peer - Assessment Assessment/Plan: Mr. Park continues to require frequent rest breaks during therapy session due to impaired activity tolerance and some weakness. Patient has stable vitals but some SOB on exertion after gait trials. Patient has impaired strength and range of motion in lower extremities which impairs his mobility. Pt will benefit from skilled therapy services to maximize safety and independence with all mobility prior to home discharge with home services and support of family. - Provider Therapist: Eduarda Heredia, [employer] #[id number] Nutrition - Current Diet Current Diet/ Supplement/ Feedings: Moderate consistent CHO renal dialysis Heart Healthy prostat sugar free 30 ml 1 per day(100 kcal and 15 grams of protein) - Appetite Percent Meal Consumed: 75-100% - Assessment/Goals/Time Frame Assessment/Goals/Time Frame: On heparin SQ - Provider Provider: Dana Curran RD Rehabilitation Plan - Treatment Plan Treatment Plan: Physical Therapy, Occupational Therapy, Speech, Dietary, Wound Care, Patient/Family Education - Discharge Plan Estimated Date of Discharge: 02/18/17 Discharge to: Home
--- NOTE | 2017-02-01 18:28 | CP.PCM.PN ---
Subjective - Date & Time of Evaluation Date of Evaluation: 02/01/17 Time of Evaluation: 18:27 - Subjective Subjective: Patient is quite tired from a 3am HD session but still working very hard in PT excellent acute rehab candidate continue current care Objective - Vital Signs/Intake and Output Vital Signs (last 24 hours): Temp Pulse Resp BP Pulse Ox 98.1 F 100 H 20 164/76 H 98 02/01/17 17:00 02/01/17 17:00 02/01/17 17:00 02/01/17 17:00 02/01/17 17:00 - Medications Medications: Current Medications Aspirin (Aspirin Chewable) 81 mg PO DAILY [facility] Last Admin: 02/01/17 08:18 Dose: 81 mg Atorvastatin Calcium (Lipitor) 80 mg PO HS [facility] Last Admin: 01/31/17 21:25 Dose: 80 mg Cadexomer Iodine (Iodosorb) 1 applic TOP 0600 [facility] Last Admin: 02/01/17 06:36 Dose: 1 applic Carvedilol (Coreg) 25 mg PO Q12 [facility] Last Admin: 02/01/17 08:19 Dose: 25 mg Clopidogrel Bisulfate (Plavix) 75 mg PO DAILY [facility] Last Admin: 02/01/17 08:18 Dose: 75 mg Ezetimibe (Zetia) 10 mg PO DAILY [facility] Last Admin: 02/01/17 08:18 Dose: 10 mg Epoetin Panchito (Procrit) 4,000 unit IV MWF [facility] Last Admin: 02/01/17 05:48 Dose: 4,000 unit Heparin Sodium (Porcine) (Heparin) 5,000 units SC Q12 [facility] PRN Reason: Protocol Last Admin: 02/01/17 08:15 Dose: 5,000 units Hydralazine HCl (Apresoline) 50 mg PO Q8 [facility] Last Admin: 02/01/17 13:30 Dose: 50 mg Levofloxacin/Dextrose (Levaquin 500mg) 500 mg in 100 mls @ 100 mls/hr IVPB QOTHERDAY@1200 [facility] Last Admin: 01/31/17 11:24 Dose: 100 mls/hr Nystatin (Mycostatin Oint) 1 applic TOP TID [facility] Last Admin: 02/01/17 17:25 Dose: 1 oin Pantoprazole Sodium (Protonix Ec Tab) 40 mg PO DAILY [facility] Last Admin: 02/01/17 08:18 Dose: 40 mg Sevelamer Carbonate (Renvela) 0.8 gm PO TID [facility] Last Admin: 02/01/17 17:26 Dose: 0.8 gm - Labs Labs: 02/01/17 03:30 01/31/17 06:00
--- NOTE | 2017-02-01 20:37 | PN ---
DATE: In room 626. SUBJECTIVE: This is a 66-year-old male with recent uncontrolled type I insulin dependent diabetes with markedly improved glycemic profile although admits to variable oral intake at this time. His glucose levels were actually low normal at lunch time today with a glucose of 65 mg/dL. His glucose levels otherwise have ranged from 100 to 181 mg/dL. His hemoglobin A1c is 8.2%, which is elevated and indicative of suboptimal metabolic control of his diabetic condition. LABORATORY DATA: His latest chemistry showed a BUN of 50, sodium 129, potassium 3.6, chloride 90, CO2 of 27, glucose 92, and creatinine 6.4. PLAN: So at this time, we will actually be switching the patient over now to his own Medtronic insulin pump. The Medtronic pump specialist Dianne Ro came in today and supervise the reinitiation and resumption of his insulin pump infusion is given. 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 She will be doing the changing of the infusion set every three days as noted. So at this time, we will discontinue the basal and bolus insulin regimen with Levemir given at 30 units at bedtime and Humalog given at 20 units t.i.d. before meals as ordered. We will also discontinue the Humalog coverage scale as ordered. The patient will be allowed to self adjust his own basal and bolus insulin doses using the Medtronic insulin pump. We will obtain serial chemistries and supplement accordingly as needed. We will follow. Payton Singleton MD
[2017-02-02] MEDS: Iodine 0.9% GEL TOP SCH (06:26)
[2017-02-02] MEDS: Sevelamer Carb 0.8 gm/Packet PO SCH ×3 (08:32→17:57)
[2017-02-02] MEDS: Pantoprazole 40 mg EC Tab PO SCH (08:32)
[2017-02-02] MEDS: Nystatin Ointment TOP SCH ×3 (08:33→18:00)
--- NOTE | 2017-02-02 09:38 | CP.PCM.PN ---
Subjective - Date & Time of Evaluation Date of Evaluation: 02/02/17 Time of Evaluation: 09:37 - Subjective Subjective: PT TOLERATING PT WELL HARD OF HEARING NO COMPLAINTS HD STABLE NAD Objective - Vital Signs/Intake and Output Vital Signs (last 24 hours): Temp Pulse Resp BP Pulse Ox 97.7 F 84 20 132/68 98 02/02/17 05:00 02/02/17 08:32 02/02/17 05:00 02/02/17 08:32 02/02/17 05:00 GEN: WDWN, alert, cooperative HEENT: NCAT, PERRL, EOMI NECK: supple, no JVD, no lymphadenopathy CARDIAC: +S1S2 RRR LUNG: CTAB No WRR ABD: SOFT NT ND BSX4 NO MASSES NO HSM EXT: +pedal pulses, WELL PERFUSED NEURO: AAOx3 SKIN warm, dry PSYCH normal mood, normal affect - Medications Medications: Current Medications Aspirin (Aspirin Chewable) 81 mg PO DAILY [facility] Last Admin: 02/02/17 08:32 Dose: 81 mg Atorvastatin Calcium (Lipitor) 80 mg PO HS [facility] Last Admin: 02/01/17 21:13 Dose: 80 mg Cadexomer Iodine (Iodosorb) 1 applic TOP 0600 [facility] Last Admin: 02/02/17 06:26 Dose: 1 applic Carvedilol (Coreg) 25 mg PO Q12 [facility] Last Admin: 02/02/17 08:32 Dose: 25 mg Clopidogrel Bisulfate (Plavix) 75 mg PO DAILY [facility] Last Admin: 02/02/17 08:32 Dose: 75 mg Ezetimibe (Zetia) 10 mg PO DAILY [facility] Last Admin: 02/02/17 08:32 Dose: 10 mg Epoetin Panchito (Procrit) 4,000 unit IV MWF [facility] Last Admin: 02/01/17 05:48 Dose: 4,000 unit Heparin Sodium (Porcine) (Heparin) 5,000 units SC Q12 [facility] PRN Reason: Protocol Last Admin: 02/02/17 08:33 Dose: 5,000 units Hydralazine HCl (Apresoline) 50 mg PO Q8 [facility] Last Admin: 02/02/17 06:26 Dose: 50 mg Levofloxacin/Dextrose (Levaquin 500mg) 500 mg in 100 mls @ 100 mls/hr IVPB QOTHERDAY@1200 [facility] Last Admin: 01/31/17 11:24 Dose: 100 mls/hr Nystatin (Mycostatin Oint) 1 applic TOP TID [facility] Last Admin: 02/02/17 08:33 Dose: 1 oin Pantoprazole Sodium (Protonix Ec Tab) 40 mg PO DAILY [facility] Last Admin: 02/02/17 08:32 Dose: 40 mg Sevelamer Carbonate (Renvela) 0.8 gm PO TID [facility] Last Admin: 02/02/17 08:32 Dose: 0.8 gm - Labs Labs: 02/01/17 03:30 01/31/17 06:00 Assessment and Plan - Assessment and Plan (Free Text) Plan: 66 yo male with history of IDDM, CAD, HTN [place] [facility] [place] he was managed there for DKA with coma, Metabolic Encephalopathy, Acute Respiratory Failure, ARF requiring dialysis and Sepsis (1) Metabolic encephalopathy secondary to DKA. improved but still with generalized weakness. physiatry consult with Dr [place]. continue PT and OT (2) Diabetes mellitus type 1 BS uncontrolled endocrinology consult with Dr Singleton (3) ESRD (end stage renal disease) on dialysis renal consult with Dr Ch for management MWF hd per nephrology +venofer x5 per nephro as well (4) Decubitus skin ulcer wound care consult (5) Afib rate controlled. continue Carvedilol. continue Heparin to consider Eliquis 5mg PO BID ? Dr. Robins Cardiology on consult. Will monitor (6) DVT prophylaxis continue Heparin to consider Eliquis 5mg PO BID?
--- NOTE | 2017-02-02 11:32 | CP.PCM.PN ---
Subjective - Date & Time of Evaluation Date of Evaluation: 02/02/17 Time of Evaluation: 11:28 - Subjective Subjective: Patient sitting got been the chair Patient comfortable Patient receiving PT Serum iron noted and serum saturation noted to be low We will give Venofer 5 doses on Hemodialysis Dialysis orders given Sodium 138 Potassium 20 mEq Ultrafiltration about 2500 mL Patient and improving Continue monitoring kidney function Objective - Vital Signs/Intake and Output Vital Signs (last 24 hours): Temp Pulse Resp BP Pulse Ox 98.3 F 84 19 132/68 98 02/02/17 09:00 02/02/17 09:00 02/02/17 09:00 02/02/17 09:00 02/02/17 09:00 - Medications Medications: Current Medications Aspirin (Aspirin Chewable) 81 mg PO DAILY [facility] Last Admin: 02/02/17 08:32 Dose: 81 mg Atorvastatin Calcium (Lipitor) 80 mg PO HS [facility] Last Admin: 02/01/17 21:13 Dose: 80 mg Cadexomer Iodine (Iodosorb) 1 applic TOP 0600 [facility] Last Admin: 02/02/17 06:26 Dose: 1 applic Carvedilol (Coreg) 25 mg PO Q12 [facility] Last Admin: 02/02/17 08:32 Dose: 25 mg Clopidogrel Bisulfate (Plavix) 75 mg PO DAILY [facility] Last Admin: 02/02/17 08:32 Dose: 75 mg Ezetimibe (Zetia) 10 mg PO DAILY [facility] Last Admin: 02/02/17 08:32 Dose: 10 mg Epoetin Panchito (Procrit) 4,000 unit IV MWF [facility] Last Admin: 02/01/17 05:48 Dose: 4,000 unit Heparin Sodium (Porcine) (Heparin) 5,000 units SC Q12 [facility] PRN Reason: Protocol Last Admin: 02/02/17 08:33 Dose: 5,000 units Hydralazine HCl (Apresoline) 50 mg PO Q8 [facility] Last Admin: 02/02/17 06:26 Dose: 50 mg Levofloxacin/Dextrose (Levaquin 500mg) 500 mg in 100 mls @ 100 mls/hr IVPB QOTHERDAY@1200 [facility] Last Admin: 01/31/17 11:24 Dose: 100 mls/hr Nystatin (Mycostatin Oint) 1 applic TOP TID [facility] Last Admin: 02/02/17 08:33 Dose: 1 oin Pantoprazole Sodium (Protonix Ec Tab) 40 mg PO DAILY [facility] Last Admin: 02/02/17 08:32 Dose: 40 mg Sevelamer Carbonate (Renvela) 0.8 gm PO TID [facility] Last Admin: 02/02/17 08:32 Dose: 0.8 gm - Labs Labs: 02/01/17 03:30 01/31/17 06:00 - Constitutional Appears: No Acute Distress - Eye Exam Eye Exam: Normal appearance - ENT Exam ENT Exam: Mucous Membranes Moist - Respiratory Exam Respiratory Exam: NORMAL BREATHING PATTERN. absent: Chest Wall Tenderness - Cardiovascular Exam Cardiovascular Exam: absent: JVD, Rubs - GI/Abdominal Exam GI & Abdominal Exam: Normal Bowel Sounds - Extremities Exam Extremities Exam: absent: Calf Tenderness - Back Exam Back Exam: absent: CVA tenderness (L), CVA tenderness (R) - Neurological Exam Neurological Exam: Alert Assessment and Plan (1) ESRD (end stage renal disease) on dialysis Status: Acute
[2017-02-02] MEDS: levoFLOXacin 500 mg in D5W 500 MG/100 ML BAG IVPB SCH (12:29)
[2017-02-02] MEDS: Epoetin Alfa 4000 UNIT/ML Inj IV SCH (14:17)
--- NOTE | 2017-02-02 16:47 | CP.PCM.PN ---
Subjective - Date & Time of Evaluation Date of Evaluation: 02/02/17 Time of Evaluation: 16:46 - Subjective Subjective: Patient seen in room with present noting that he had a good day in therapy HD has been changed to T, TH, Sat excellent, well motivated rehab candidate Objective - Vital Signs/Intake and Output Vital Signs (last 24 hours): Temp Pulse Resp BP Pulse Ox 98.3 F 74 19 138/58 L 98 02/02/17 09:00 02/02/17 14:14 02/02/17 09:00 02/02/17 14:14 02/02/17 09:00 - Medications Medications: Current Medications Aspirin (Aspirin Chewable) 81 mg PO DAILY [facility] Last Admin: 02/02/17 08:32 Dose: 81 mg Atorvastatin Calcium (Lipitor) 80 mg PO HS [facility] Last Admin: 02/01/17 21:13 Dose: 80 mg Cadexomer Iodine (Iodosorb) 1 applic TOP 0600 [facility] Last Admin: 02/02/17 06:26 Dose: 1 applic Carvedilol (Coreg) 25 mg PO Q12 [facility] Last Admin: 02/02/17 08:32 Dose: 25 mg Clopidogrel Bisulfate (Plavix) 75 mg PO DAILY [facility] Last Admin: 02/02/17 08:32 Dose: 75 mg Ezetimibe (Zetia) 10 mg PO DAILY [facility] Last Admin: 02/02/17 08:32 Dose: 10 mg Epoetin Panchito (Procrit) 4,000 unit IV TTS [facility] Heparin Sodium (Porcine) (Heparin) 5,000 units SC Q12 [facility] PRN Reason: Protocol Last Admin: 02/02/17 08:33 Dose: 5,000 units Hydralazine HCl (Apresoline) 50 mg PO Q8 [facility] Last Admin: 02/02/17 14:14 Dose: 50 mg Levofloxacin/Dextrose (Levaquin 500mg) 500 mg in 100 mls @ 100 mls/hr IVPB QOTHERDAY@1200 [facility] Last Admin: 02/02/17 12:29 Dose: 100 mls/hr Iron Sucrose 100 mg/ Sodium (Chloride) 105 mls @ 105 mls/hr IVPB TTS [facility] Stop: 02/12/17 09:59 Nystatin (Mycostatin Oint) 1 applic TOP TID [facility] Last Admin: 02/02/17 12:37 Dose: 1 oin Pantoprazole Sodium (Protonix Ec Tab) 40 mg PO DAILY [facility] Last Admin: 02/02/17 08:32 Dose: 40 mg Sevelamer Carbonate (Renvela) 0.8 gm PO TID [facility] Last Admin: 02/02/17 12:37 Dose: 0.8 gm - Labs Labs: 02/01/17 03:30 01/31/17 06:00
[2017-02-02] MEDS ORDERED: Insulin Lispro (humaLOG) 100 Units/ml Inj SC STA (17:48)
--- NOTE | 2017-02-02 23:51 | PN ---
LOCATION: Room 626. SUBJECTIVE: This is a 66-year-old male with recent uncontrolled type 1 insulin dependent diabetes, now being followed closely for metabolic management. He is actually undergoing acute rehabilitation therapy following a recent bout of acute respiratory failure and acute renal failure and severe diabetic ketoacidosis [facility] as noted. He has since then improved clinically and metabolically as noted thereof. His glucose levels are fluctuating today as he has been switched over now from the basal and bolus insulin regimen to a Medtronic insulin pump, which he is supposed to self adjust accordingly. His glucose levels have ranged from 194 to 295 and 304 mg/dL. LABORATORY DATA: The latest chemistry shows a BUN of 50, sodium 129, potassium 3.6, chloride 90, CO2 27, glucose 92, and creatinine 6.4. PLAN: So at this time, we will discuss with the patient the imperative need to self adjust his own basal and bolus insulin regimen in the hospital. The metabolic goals would be to aim for glucose levels between 90 and 130 mg/dL. We will obtain serial chemistries and supplement accordingly as needed. We will follow. Payton Singleton MD
[2017-02-03] MEDS: Iodine 0.9% GEL TOP SCH (06:00)
[2017-02-03 06:34] LABS: BASO # 0.1 K/uL (0.0-0.2); EOS # 0.1 K/uL (0.0-0.7); EOS % 1.5 % (0.0-4.0); HEMATOCRIT 23.5 % (35.0-51.0); LYMPH # 0.9 K/uL (1.0-4.3); LYMPH % 11.1 % (20.0-40.0); MEAN CELL VOLUME 87.2 fl (80.0-94.0); MEAN CORPUSCULAR HEMOGLOBIN 29.6 pg (27.0-31.0); MEAN CORPUSCULAR HGB CONC 33.9 g/dL (33.0-37.0); MEAN PLATELET VOLUME 7.6 fl (7.2-11.7); MONO # 0.9 K/uL (0.0-0.8); MONO % 10.5 % (0.0-10.0); NEUT # 6.3 K/uL (1.8-7.0); NEUT % 75.9 % (50.0-75.0); RED CELL DISTRIBUTION WIDTH 14.9 % (11.5-14.5); WHITE BLOOD COUNT 8.3 K/uL (4.8-10.8)
[2017-02-03 06:43] LABS: ALB/GLOB RATIO 0.9 (1.0-2.1); BILIRUBIN,TOTAL 0.7 mg/dl (0.2-1.3); CALCIUM 7.7 mg/dL (8.4-10.2); TOTAL PROTEIN 5.4 G/DL (6.3-8.2)
[2017-02-03] MEDS: Pantoprazole 40 mg EC Tab PO SCH (08:23)
[2017-02-03] MEDS: Nystatin Ointment TOP SCH ×3 (08:24→16:26)
[2017-02-03] MEDS: Sevelamer Carb 0.8 gm/Packet PO SCH ×3 (08:25→17:03)
[2017-02-03] MEDS ORDERED: Insulin Lispro (humaLOG) 100 Units/ml Inj SC ONE (08:49)
[2017-02-03] MEDS: Insulin Lispro (humaLOG) 100 Units/ml Inj SC SCH ×2 (12:35→17:10)
[2017-02-03] MEDS: Epoetin Alfa 20000 UNIT/ML Inj IV SCH ×2 (16:28→17:02)
--- NOTE | 2017-02-03 19:12 | PN ---
DATE: ENDOCRINE FOLLOWUP NOTE LOCATION: Room 626 rehabilitation unit. SUBJECTIVE: This is a 66-year-old male with recent uncontrolled type 2 insulin requiring diabetes now with overnight hyperglycemic accelerations because of his apparent inability to self-adjusted own basal and bolus insulin regimen on his Medtronic insulin pump given. His glucose values have ranged from 321 to 362 mg/dL today as noted with 191 to 490 mg/dL last night. LABORATORY DATA: The latest chemistry showed a BUN of 45, sodium 128, potassium 4.0, chloride 93, CO2 24, glucose 321, and creatinine 5.7. PLAN: So, at this time we will give him a stat dose of Humalog given as 14 units subcutaneous at breakfast time and increase the Humalog to 20 units subcutaneous t.i.d. before meals as ordered. We will consider the activation of Levemir given overnight if hyperglycemic level persist. We are awaiting the visit of the Medtronic pump specialist, Ms. Dianne Ro who will teach to the patient's the use of the insulin pump and also will adjust it to bolus regimen as ordered. We will follow with you. Payton Singleton MD
--- NOTE | 2017-02-03 19:25 | CP.PCM.PN ---
Subjective - Date & Time of Evaluation Date of Evaluation: 02/03/17 Time of Evaluation: 19:24 - Subjective Subjective: Patient seen in room getting HD in good spirits and remains so motivated for therapy I have discussed the use of an anabolic steroid and we will start with a moderate dose of Oxandrin Objective - Vital Signs/Intake and Output Vital Signs (last 24 hours): Temp Pulse Resp BP Pulse Ox 98.1 F 78 18 148/89 95 02/03/17 08:11 02/03/17 14:22 02/03/17 08:11 02/03/17 14:22 02/03/17 08:11 - Medications Medications: Current Medications Aspirin (Aspirin Chewable) 81 mg PO DAILY [facility] Last Admin: 02/03/17 08:23 Dose: 81 mg Atorvastatin Calcium (Lipitor) 80 mg PO HS [facility] Last Admin: 02/02/17 21:06 Dose: 80 mg Cadexomer Iodine (Iodosorb) 1 applic TOP 0600 [facility] Last Admin: 02/03/17 06:00 Dose: 1 applic Carvedilol (Coreg) 25 mg PO Q12 [facility] Last Admin: 02/03/17 08:23 Dose: 25 mg Clopidogrel Bisulfate (Plavix) 75 mg PO DAILY [facility] Last Admin: 02/03/17 08:23 Dose: 75 mg Ezetimibe (Zetia) 10 mg PO DAILY [facility] Last Admin: 02/03/17 08:25 Dose: 10 mg Epoetin Panchito (Procrit) 4,000 unit IV TTS [facility] Last Admin: 02/03/17 17:02 Dose: Not Given Heparin Sodium (Porcine) (Heparin) 5,000 units SC Q12 [facility] PRN Reason: Protocol Last Admin: 02/03/17 08:24 Dose: 5,000 units Hydralazine HCl (Apresoline) 50 mg PO Q8 [facility] Last Admin: 02/03/17 14:22 Dose: 50 mg Levofloxacin/Dextrose (Levaquin 500mg) 500 mg in 100 mls @ 100 mls/hr IVPB QOTHERDAY@1200 [facility] Last Admin: 02/02/17 12:29 Dose: 100 mls/hr Iron Sucrose 100 mg/ Sodium (Chloride) 105 mls @ 105 mls/hr IVPB TTS [facility] Stop: 02/12/17 09:59 Last Admin: 02/03/17 17:40 Dose: 105 mls/hr Nystatin (Mycostatin Oint) 1 applic TOP TID [facility] Last Admin: 02/03/17 16:26 Dose: 1 oin Pantoprazole Sodium (Protonix Ec Tab) 40 mg PO DAILY [facility] Last Admin: 02/03/17 08:23 Dose: 40 mg Sevelamer Carbonate (Renvela) 0.8 gm PO TID [facility] Last Admin: 02/03/17 17:03 Dose: 0.8 gm - Labs Labs: 02/03/17 05:30 02/03/17 05:30
[2017-02-04] MEDS: Iodine 0.9% GEL TOP SCH (06:51)
[2017-02-04] MEDS: Sevelamer Carb 0.8 gm/Packet PO SCH ×3 (08:31→16:58)
[2017-02-04] MEDS: Pantoprazole 40 mg EC Tab PO SCH (08:32)
[2017-02-04] MEDS: Nystatin Ointment TOP SCH ×3 (10:07→16:58)
[2017-02-04] MEDS: levoFLOXacin 500 mg in D5W 500 MG/100 ML BAG IVPB SCH (12:25)
--- NOTE | 2017-02-04 13:35 | PN ---
ENDO FOLLOWUP NOTE LOCATION: Room 626. This is a 66-year-old male with recent uncontrolled type 1 insulin dependent diabetes presenting here for acute rehabilitation following a previous bout of acute respiratory failure and also supervening acute renal failure, currently hemodialysis dependent, and is now being followed closely for metabolic management. He had a previous bout of diabetic coma from uncontrolled type 1 diabetes following the malfunction of his Medtronic insulin pump as noted. He has since then been able to resume the use of his Medtronic insulin pump as our pump specialist, Ms. Dianne Ro, came in twice with this admission to help the patient and his regarding the reuse of his insulin pump as noted. So his latest glucose levels have been fluctuating with glucose levels ranging from 130 to 231 and 303 mg/dL. His latest chemistries showed a BUN of 35, sodium 128, potassium 4.0, chloride 93, CO2 of 24, glucose 321 and creatinine 5.7. So at this time, we will once again advise the patient to self-address his basal and bolus insulin regimen if he continues to have glycemic fluctuations as noted thereof. We will obtain serial chemistries and supplement accordingly needed. Payton Singleton MD
--- NOTE | 2017-02-04 17:40 | CP.PCM.PN ---
Subjective - Date & Time of Evaluation Date of Evaluation: 02/04/17 Time of Evaluation: 10:30 - Subjective Subjective: Pt seen and examined. Claimed he was doing fine and trying to overdo the fluid restriction to just 2 glasses of water a day. Objective - Vital Signs/Intake and Output Vital Signs (last 24 hours): Temp Pulse Resp BP Pulse Ox 98.6 F 80 20 130/80 95 02/03/17 21:15 02/04/17 15:00 02/03/17 21:15 02/04/17 15:00 02/03/17 21:15 - Medications Medications: Current Medications Aspirin (Aspirin Chewable) 81 mg PO DAILY [facility] Last Admin: 02/04/17 08:32 Dose: 81 mg Atorvastatin Calcium (Lipitor) 80 mg PO HS [facility] Last Admin: 02/03/17 21:20 Dose: 80 mg Cadexomer Iodine (Iodosorb) 1 applic TOP 0600 [facility] Last Admin: 02/04/17 06:51 Dose: 1 applic Carvedilol (Coreg) 25 mg PO Q12 [facility] Last Admin: 02/04/17 08:32 Dose: 25 mg Clopidogrel Bisulfate (Plavix) 75 mg PO DAILY [facility] Last Admin: 02/04/17 08:32 Dose: 75 mg Ezetimibe (Zetia) 10 mg PO DAILY [facility] Last Admin: 02/04/17 08:33 Dose: 10 mg Epoetin Panchito (Procrit) 4,000 unit IV TTS [facility] Last Admin: 02/03/17 17:02 Dose: Not Given Heparin Sodium (Porcine) (Heparin) 5,000 units SC Q12 [facility] PRN Reason: Protocol Last Admin: 02/04/17 08:33 Dose: 5,000 units Hydralazine HCl (Apresoline) 50 mg PO Q8 [facility] Last Admin: 02/04/17 15:00 Dose: 50 mg Iron Sucrose 100 mg/ Sodium (Chloride) 105 mls @ 105 mls/hr IVPB TTS [facility] Stop: 02/12/17 09:59 Last Admin: 02/03/17 17:40 Dose: 105 mls/hr Nystatin (Mycostatin Oint) 1 applic TOP TID [facility] Last Admin: 02/04/17 16:58 Dose: 1 oin Oxandrolone (Oxandrin) 5 mg PO BID [facility] Last Admin: 02/04/17 17:01 Dose: 5 mg Pantoprazole Sodium (Protonix Ec Tab) 40 mg PO DAILY [facility] Last Admin: 02/04/17 08:32 Dose: 40 mg Sevelamer Carbonate (Renvela) 0.8 gm PO TID [facility] Last Admin: 02/04/17 16:58 Dose: 0.8 gm - Labs Labs: 02/03/17 05:30 02/03/17 05:30 - Constitutional Appears: No Acute Distress - Head Exam Head Exam: ATRAUMATIC - Eye Exam Eye Exam: absent: Scleral icterus - ENT Exam ENT Exam: Mucous Membranes Moist - Neck Exam Neck Exam: absent: Meningismus - Respiratory Exam Respiratory Exam: absent: Rhonchi, Wheezes, Respiratory Distress - Cardiovascular Exam Cardiovascular Exam: REGULAR RHYTHM, +S1, +S2 - GI/Abdominal Exam GI & Abdominal Exam: Soft. absent: Tenderness - Rectal Exam Rectal Exam: Deferred - Extremities Exam Extremities Exam: Pedal Edema (edema on all limbs) - Neurological Exam Neurological Exam: Alert, Oriented x3 - Psychiatric Exam Psychiatric exam: Normal Affect - Skin Skin Exam: Dry, Intact Assessment and Plan (1) Metabolic encephalopathy Status: Resolved (2) Diabetes mellitus type 1 Status: Acute (3) ESRD (end stage renal disease) on dialysis Status: Acute (4) Decubitus skin ulcer Status: Acute (5) Afib Status: Acute (6) DVT prophylaxis Status: Acute - Assessment and Plan (Free Text) Assessment: 66 yo male with history of IDDM, CAD, HTN was transferred from [facility] [place] acute rehab after he was managed there for DKA with coma, Metabolic Encephalopathy, Acute Respiratory Failure, ARF requiring dialysis and Sepsis (1) Metabolic encephalopathy improved still with generalized weakness. physiatry consult with Dr [place]. continue PT and OT (2) Diabetes mellitus type 1 patient on insulin pump using Novolog insulin endocrinology consult with Dr Singleton (3) ESRD (end stage renal disease) on dialysis Hemodialysis MWF renal consult with Dr Ch for management and dialysis orders (4) Chronic Anemia secondary to renal failure continue IV Venofer 5 bags and IV Procrit 4000 units every TThS as per cop (5) Decubitus skin ulcer wound care consult (6) Afib rate controlled and presently in sinus continue Carvedilol. Heparin 5000 units SC q 12hrs as per cardiology consult, AFib was only verbally reported and may not need long period of anticoagulation Dr. Robins, on cardiology consult (7) DVT prophylaxis continue Heparin 5000 units SC q 12hrs
[2017-02-05] MEDS: Iodine 0.9% GEL TOP SCH (06:17)
[2017-02-05] MEDS: Sevelamer Carb 0.8 gm/Packet PO SCH ×3 (08:47→16:47)
[2017-02-05] MEDS: Pantoprazole 40 mg EC Tab PO SCH (08:47)
[2017-02-05] MEDS: Nystatin Ointment TOP SCH ×3 (08:50→16:46)
[2017-02-05] MEDS ORDERED: Epoetin Alfa 4000 UNIT/ML Inj IV SCH ×2 (09:00→15:53)
--- NOTE | 2017-02-05 14:04 | ENDO ---
DATE: 02/05/2017 SUBJECTIVE: This is a 66-year-old male with recent uncontrolled type 1 insulin dependent diabetes, presenting here with marked hyperglycemic accelerations and has now been able to resume the use of his Medtronic insulin pump and is now being followed closely for metabolic management. He is undergoing acute rehabilitation following a metabolic encephalopathy and actually was in diabetic coma for over a week at [facility]. He has since then improved clinically and metabolically, otherwise, but has occasional cognitive impairment with memory lapses and difficulty with comprehension as noted. Moreover, he has severe upper and lower extremity recurrent polyneuropathy with difficulty with dexterity with his hands, with his fingers, and the use of his insulin pump otherwise. His has been very cooperative and has help with the aforementioned with the patient at the bedside. The Medtronic pump specialist Elyse Lisandra Ro came in twice to help out the family regarding the aforementioned. LABORATORY DATA: His glycemic fluctuations have improved and the latest glucose levels have raised from 186 to 257 mg/dL. It was 272 to 372 yesterday as noted. The latest chemistry showed a BUN of 45, sodium 128, potassium 4.0, chloride 93, CO2 24, glucose 321, and creatinine is 5.7. He also has ongoing hemodialysis for acute renal failure as noted. IMPRESSION AND PLAN: So At this time, we will continue the use of his Medtronic insulin pump and the patient has been allowed to self adjust his own basal and bolus insulin regimen. We actually titrated and went high on his basal to 0.8 units per hour from the baseline of 0.7 units per hour as discussed with the patient at the bedside. We also advised the patient to increase his bolus and preprandial insulin doses to prevent hyperglycemic accelerations postprandially. We will obtain serial chemistries and supplement accordingly as needed. We will follow. Payton Singleton MD
[2017-02-05] MEDS: Multivitamin Vitamin B Complex (Nephro-Vite) Tab PO SCH (16:46)
--- NOTE | 2017-02-05 17:27 | CP.PCM.PN ---
Subjective - Date & Time of Evaluation Date of Evaluation: 02/05/17 Time of Evaluation: 17:23 - Subjective Subjective: Follow up Nephrology Consultation Note Assessment: Stable TRACEY now dialysis dependent Diabetic chronic Kidney Disease (E11.22) Hypertensive Chronic Kidney Disease (I12.0) TRACEY dependence on hemodialysis (Z99.2) (TTS) via permacath Anemia (D64.9), Hyperphosphatemia (E83.39), HTN (I12.0) FLuid overload with hyponatremia Plan: Will plan for HD today as ordered. will attempt further UF (goal 3500 mL). Continue with Nephrovite 1 tab/day. PRBC as needed for anemia. On LINDSEY but increase to 10,000 unit with HD, last Hb 8 Last PTH level 84, hence no VDRA or calcimimetics BP control with meds as ordered. Patient not on RAAS miguel. will d/c hydralazine and try to bring his volume status better before adding more meds such as ACEI/ARB except lasix on MWF Glycemic control, Dialysis consistent diet Further work up/management as per primary team Dose meds/antibiotics (if needed) for ESRD status. Avoid fleets enema/magnesium based laxatives. will check bladder sonogram and PVR. Thanks for allowing me to participate in care of your patient. Will follow patient with you. Please call if any Qs Dr Richard Cuevas Office: [phone] Subjective: Noted events overnight. Patients feels okay. Denies chest pain, palpitation, shortness of breath, improved leg swelling. c/o need to strain when making urine Physical Examination: General Appearance: Comfortable, in no acute respiratory distress, co- operative. Vitals reviewed and noted as below Lungs: Normal respiratory rate/effort. Breath sounds bilateral equal and clear Heart: Normal rate. s1s2 normal. No rub or gallop. Extremities: 2+ edema. Neurological: Patient is alert, awake and oriented to person, place and time. No focal deficit. Strength bilateral appropriate and equal Skin: Warm and dry. Normal turgor. No rash. Palpitation: Normal elasticity for age Abdomen: Abdomen is soft. Bowel sounds +. There is no abdominal tenderness, no guarding/rigidity or organomegaly : kidney or bladder not palpable but exam limited as pt sitting in wheelchair Access: permacath Labs/imaging reviewed. Past medical history, past surgical history, family history, social history, allergy reviewed Objective - Vital Signs/Intake and Output Vital Signs (last 24 hours): Temp Pulse Resp BP Pulse Ox 98.4 F 78 22 130/70 96 02/05/17 08:03 02/05/17 14:00 02/05/17 08:03 02/05/17 14:00 02/05/17 08:03 - Medications Medications: Current Medications Aspirin (Aspirin Chewable) 81 mg PO DAILY [facility] Last Admin: 02/05/17 08:49 Dose: 81 mg Atorvastatin Calcium (Lipitor) 80 mg PO HS [facility] Last Admin: 02/04/17 21:07 Dose: 80 mg Cadexomer Iodine (Iodosorb) 1 applic TOP 0600 [facility] Last Admin: 02/05/17 06:17 Dose: 1 applic Carvedilol (Coreg) 25 mg PO Q12 [facility] Last Admin: 02/05/17 08:47 Dose: 25 mg Clopidogrel Bisulfate (Plavix) 75 mg PO DAILY [facility] Last Admin: 02/05/17 08:47 Dose: 75 mg Ezetimibe (Zetia) 10 mg PO DAILY [facility] Last Admin: 02/05/17 09:00 Dose: 10 mg Epoetin Panchito (Procrit) 10,000 unit IV TTS [facility] Furosemide (Lasix) 80 mg PO MWF [facility] Heparin Sodium (Porcine) (Heparin) 5,000 units SC Q12 [facility] PRN Reason: Protocol Last Admin: 02/05/17 08:49 Dose: 5,000 units Iron Sucrose 100 mg/ Sodium (Chloride) 105 mls @ 105 mls/hr IVPB TTS [facility] Stop: 02/12/17 09:59 Last Admin: 02/03/17 17:40 Dose: 105 mls/hr Nystatin (Mycostatin Oint) 1 applic TOP TID [facility] Last Admin: 02/05/17 16:46 Dose: 1 oin Oxandrolone (Oxandrin) 5 mg PO BID [facility] Last Admin: 02/05/17 08:57 Dose: 5 mg Pantoprazole Sodium (Protonix Ec Tab) 40 mg PO DAILY [facility] Last Admin: 02/05/17 08:47 Dose: 40 mg Sevelamer Carbonate (Renvela) 0.8 gm PO TID [facility] Last Admin: 02/05/17 16:47 Dose: 0.8 gm Vitamin B Complex/Vit C/Folic Acid (Nephro-Chris) 1 tab PO DAILY [facility] Last Admin: 02/05/17 16:46 Dose: 1 tab - Labs Labs: 02/03/17 05:30 02/03/17 05:30
--- NOTE | 2017-02-05 18:46 | CP.PCM.PN ---
Subjective - Date & Time of Evaluation Date of Evaluation: 02/05/17 Time of Evaluation: 18:45 - Subjective Subjective: Patient seen in room doing ok on HD now + leg swelling today so hopefully HD will help with this feels good on the oxandrin Objective - Vital Signs/Intake and Output Vital Signs (last 24 hours): Temp Pulse Resp BP Pulse Ox 98.4 F 78 22 130/70 96 02/05/17 08:03 02/05/17 14:00 02/05/17 08:03 02/05/17 14:00 02/05/17 08:03 - Medications Medications: Current Medications Aspirin (Aspirin Chewable) 81 mg PO DAILY [facility] Last Admin: 02/05/17 08:49 Dose: 81 mg Atorvastatin Calcium (Lipitor) 80 mg PO HS [facility] Last Admin: 02/04/17 21:07 Dose: 80 mg Cadexomer Iodine (Iodosorb) 1 applic TOP 0600 [facility] Last Admin: 02/05/17 06:17 Dose: 1 applic Carvedilol (Coreg) 25 mg PO Q12 [facility] Last Admin: 02/05/17 08:47 Dose: 25 mg Clopidogrel Bisulfate (Plavix) 75 mg PO DAILY [facility] Last Admin: 02/05/17 08:47 Dose: 75 mg Ezetimibe (Zetia) 10 mg PO DAILY [facility] Last Admin: 02/05/17 09:00 Dose: 10 mg Epoetin Panchito (Procrit) 10,000 unit IV TTS [facility] Furosemide (Lasix) 80 mg PO MWF [facility] Heparin Sodium (Porcine) (Heparin) 5,000 units SC Q12 [facility] PRN Reason: Protocol Last Admin: 02/05/17 08:49 Dose: 5,000 units Iron Sucrose 100 mg/ Sodium (Chloride) 105 mls @ 105 mls/hr IVPB TTS [facility] Stop: 02/12/17 09:59 Last Admin: 02/03/17 17:40 Dose: 105 mls/hr Nystatin (Mycostatin Oint) 1 applic TOP TID [facility] Last Admin: 02/05/17 16:46 Dose: 1 oin Oxandrolone (Oxandrin) 5 mg PO BID [facility] Last Admin: 02/05/17 08:57 Dose: 5 mg Pantoprazole Sodium (Protonix Ec Tab) 40 mg PO DAILY [facility] Last Admin: 02/05/17 08:47 Dose: 40 mg Sevelamer Carbonate (Renvela) 0.8 gm PO TID [facility] Last Admin: 02/05/17 16:47 Dose: 0.8 gm Vitamin B Complex/Vit C/Folic Acid (Nephro-Chris) 1 tab PO DAILY [facility] Last Admin: 02/05/17 16:46 Dose: 1 tab - Labs Labs: 02/03/17 05:30 02/03/17 05:30
[2017-02-05] MEDS: EPOETIN ALFA 10,000 UNIT/ML ML IV SCH ×2 (20:17)
[2017-02-06] MEDS: Iodine 0.9% GEL TOP SCH (06:35)
[2017-02-06 08:01] LABS: BASO # 0.1 K/uL (0.0-0.2); BASO % 1.9 % (0.0-2.0); EOS # 0.1 K/uL (0.0-0.7); EOS % 1.9 % (0.0-4.0); HEMATOCRIT 24.7 % (35.0-51.0); MEAN CELL VOLUME 88.2 fl (80.0-94.0); MEAN CORPUSCULAR HEMOGLOBIN 29.4 pg (27.0-31.0); MEAN CORPUSCULAR HGB CONC 33.3 g/dL (33.0-37.0); MEAN PLATELET VOLUME 7.5 fl (7.2-11.7); MONO # 0.5 K/uL (0.0-0.8); MONO % 8.1 % (0.0-10.0); NEUT # 4.8 K/uL (1.8-7.0); NEUT % 73.1 % (50.0-75.0); RED CELL DISTRIBUTION WIDTH 15.2 % (11.5-14.5); WHITE BLOOD COUNT 6.6 K/uL (4.8-10.8)
[2017-02-06 08:19] LABS: BILIRUBIN,TOTAL 0.5 mg/dl (0.2-1.3); POTASSIUM 3.3 MMOL/L (3.6-5.0); TOTAL PROTEIN 5.6 G/DL (6.3-8.2)
[2017-02-06 08:22] LABS: ALB/GLOB RATIO 0.9 (1.0-2.1)
[2017-02-06] MEDS: Pantoprazole 40 mg EC Tab PO SCH (09:15)
[2017-02-06] MEDS: Multivitamin Vitamin B Complex (Nephro-Vite) Tab PO SCH (09:15)
[2017-02-06] MEDS: Sevelamer Carb 0.8 gm/Packet PO SCH ×3 (09:15→17:15)
[2017-02-06] MEDS: Nystatin Ointment TOP SCH ×3 (09:16→17:15)
[2017-02-06] MEDS ORDERED: Potassium Chloride 10 mEq ER Tab PO ONE ×2 (10:27→12:50)
--- NOTE | 2017-02-06 15:19 | CP.PCM.PN ---
Subjective - Date & Time of Evaluation Date of Evaluation: 02/06/17 Time of Evaluation: 15:17 - Subjective Subjective: Follow up Nephrology Consultation Note Assessment: Stable TRACEY now dialysis dependent TRACEY dependence on hemodialysis (Z99.2) (TTS) via permacath Anemia (D64.9), Hyperphosphatemia (E83.39), HTN (I12.0) Fluid overload with hyponatremia DM, HTN Plan: Will plan for HD tuesday as per TTS schedule. will attempt further UF (goal 3500 mL). Continue with Nephrovite 1 tab/day. PRBC as needed for anemia. On LINDSEY but increase to 10,000 unit with HD, last Hb 8 Last PTH level 84, hence no VDRA or calcimimetics BP control with meds as ordered. Patient not on RAAS miguel. will d/c hydralazine and try to bring his volume status better before adding more meds such as ACEI/ARB except lasix trial on MWF. will check bladder sonogram and PVR. if not much urine output then can d/c lasix trial. Glycemic control, Dialysis consistent diet Further work up/management as per primary team Dose meds/antibiotics (if needed) for ESRD status. Avoid fleets enema/magnesium based laxatives. Thanks for allowing me to participate in care of your patient. Will follow patient with you. Please call if any Qs Dr Richard Cuevas Office: [phone] Subjective: Noted events overnight. Patients feels okay. Denies chest pain, palpitation, shortness of breath, says improved leg swelling. c/o need to strain when making urine Physical Examination: General Appearance: Comfortable, in no acute respiratory distress, co- operative. Vitals reviewed and noted as below Lungs: Normal respiratory rate/effort. Breath sounds bilateral equal and clear Heart: Normal rate. s1s2 normal. No rub or gallop. Extremities: 1-2+ edema. Neurological: Patient is alert, awake and oriented to person, place and time. No focal deficit. Strength bilateral appropriate and equal Skin: Warm and dry. Normal turgor. No rash. Palpitation: Normal elasticity for age Abdomen: Abdomen is soft. Bowel sounds +. There is no abdominal tenderness, no guarding/rigidity or organomegaly : kidney or bladder not palpable but exam limited as pt sitting in wheelchair Access: permacath Labs/imaging reviewed. Past medical history, past surgical history, family history, social history, allergy reviewed Objective - Vital Signs/Intake and Output Vital Signs (last 24 hours): Temp Pulse Resp BP Pulse Ox 98.2 F 74 18 147/66 98 02/06/17 09:06 02/06/17 09:15 02/06/17 09:06 02/06/17 09:15 02/06/17 09:06 - Medications Medications: Current Medications Aspirin (Aspirin Chewable) 81 mg PO DAILY [facility] Last Admin: 02/06/17 09:15 Dose: 81 mg Atorvastatin Calcium (Lipitor) 80 mg PO HS [facility] Last Admin: 02/05/17 22:29 Dose: 80 mg Cadexomer Iodine (Iodosorb) 1 applic TOP 0600 [facility] Last Admin: 02/06/17 06:35 Dose: 1 applic Carvedilol (Coreg) 25 mg PO Q12 [facility] Last Admin: 02/06/17 09:15 Dose: 25 mg Clopidogrel Bisulfate (Plavix) 75 mg PO DAILY [facility] Last Admin: 02/06/17 09:15 Dose: 75 mg Ezetimibe (Zetia) 10 mg PO DAILY [facility] Last Admin: 02/06/17 09:15 Dose: 10 mg Epoetin Panchito (Procrit) 10,000 unit IV TTS [facility] Last Admin: 02/05/17 20:17 Dose: 10,000 unit Furosemide (Lasix) 80 mg PO MWF [facility] Last Admin: 02/06/17 08:53 Dose: Not Given Heparin Sodium (Porcine) (Heparin) 5,000 units SC Q12 [facility] PRN Reason: Protocol Last Admin: 02/06/17 09:15 Dose: 5,000 units Iron Sucrose 100 mg/ Sodium (Chloride) 105 mls @ 105 mls/hr IVPB TTS [facility] Stop: 02/12/17 09:59 Last Admin: 02/05/17 20:15 Dose: 105 mls/hr Nystatin (Mycostatin Oint) 1 applic TOP TID [facility] Last Admin: 02/06/17 13:03 Dose: 1 oin Oxandrolone (Oxandrin) 5 mg PO BID [facility] Last Admin: 02/06/17 09:53 Dose: 5 mg Pantoprazole Sodium (Protonix Ec Tab) 40 mg PO DAILY [facility] Last Admin: 02/06/17 09:15 Dose: 40 mg Sevelamer Carbonate (Renvela) 0.8 gm PO TID [facility] Last Admin: 02/06/17 13:04 Dose: 0.8 gm Vitamin B Complex/Vit C/Folic Acid (Nephro-Chris) 1 tab PO DAILY [facility] Last Admin: 02/06/17 09:15 Dose: 1 tab - Labs Labs: 02/06/17 06:00 02/06/17 06:00
--- NOTE | 2017-02-06 15:41 | US ---
PROCEDURE: Ultrasound of the Bladder HISTORY: Questionable urine retention COMPARISON: None available. TECHNIQUE: Sonographic evaluation of the bladder was performed. FINDINGS: Urinary bladder is markedly distended with very large prevoid and postvoid residual. Both ureteral jets visible. Bladder wall measures approximately 4.2 mm. No evidence of intraluminal urinary bladder calculi. Debris is present within the urinary bladder. Findings suggest urinary retention ; rule out bladder outlet obstruction. No gross free fluid seen in the pelvis Prevoid Volume: 658 cc. Post void residual: 397 cc. Prostate gland measures approximately 4.6 x 1.9 x 5 cm with total volume estimated approximately 25 cc. PPSA = 2.95 IMPRESSION: Large prevoid and large postvoid residual with debris in the urinary bladder. Findings suggest urinary retention ; rule out bladder outlet obstruction
--- NOTE | 2017-02-06 17:38 | PN ---
LOCATION: In room 626. This is a 66-year-old male with recent uncontrolled type 1 insulin dependent diabetes presenting here with metabolic encephalopathy following a recent bout of DKA with acute respiratory failure and supervening acute renal failure at [facility] and is now being followed closely here for metabolic management. He is undergoing acute rehabilitation therapy thereof. He is currently on the Medtronic insulin pump, which was resumed last week when in the hospital as noted. His glycemic levels are fluctuating also because of the variability of his oral intake and also because of the patient's difficulty to the dose adjustments necessary for his insulin pump. His glucose levels today have ranged from 228 to 290 mg/dL. The latest chemistries showed a BUN of 21, sodium 135, potassium 3.3, chloride 98, CO2 of 27, glucose 246, and creatinine 3.2. So at this time, we will once again remind the patient to self-adjust his own basal and bolus insulin regimen to optimize his metabolic goal, which would be to achieve glucose levels ranging from 90 to 130, at the most 140 mg/dL on a day-to-day basis. We will obtain serial chemistries and supplement accordingly as needed. We will follow and advise accordingly. Payton Singleton MD
[2017-02-07] MEDS: Iodine 0.9% GEL TOP SCH (06:18)
[2017-02-07] MEDS: Pantoprazole 40 mg EC Tab PO SCH (08:41)
[2017-02-07] MEDS: Sevelamer Carb 0.8 gm/Packet PO SCH ×3 (08:41→17:20)
[2017-02-07] MEDS: Nystatin Ointment TOP SCH ×3 (08:42→17:22)
[2017-02-07] MEDS: Multivitamin Vitamin B Complex (Nephro-Vite) Tab PO SCH (08:43)
[2017-02-07 08:50] LABS: CALCIUM 8.4 mg/dL (8.4-10.2); POTASSIUM 3.8 MMOL/L (3.6-5.0)
--- NOTE | 2017-02-07 11:33 | CP.PCM.PN ---
Subjective - Date & Time of Evaluation Date of Evaluation: 02/07/17 Time of Evaluation: 11:32 - Subjective Subjective: Follow up Nephrology Consultation Note Assessment: Stable TRACEY now dialysis dependent TRACEY dependence on hemodialysis (Z99.2) (TTS) via permacath Anemia (D64.9), Hyperphosphatemia (E83.39), HTN (I12.0) Fluid overload with hyponatremia DM, HTN urine retention Plan: Will plan for HD tuesday as per TTS schedule. will attempt further UF (goal 3500 mL). Continue with Nephrovite 1 tab/day. PRBC as needed for anemia. On LINDSEY but increase to 10,000 unit with HD, last Hb 8 Last PTH level 84, hence no VDRA or calcimimetics BP control with meds as ordered. Patient not on RAAS miguel. will d/c hydralazine and try to bring his volume status better before adding more meds such as ACEI/ARB except lasix trial on MWF. Glycemic control, Dialysis consistent diet Further work up/management as per primary team Dose meds/antibiotics (if needed) for ESRD status. Avoid fleets enema/magnesium based laxatives. recommend abdalla catheterization, consulted, started on flomax. Thanks for allowing me to participate in care of your patient. Will follow patient with you. Please call if any Qs Dr Richard Cuevas Office: [phone] Subjective: Noted events overnight. Patients feels okay. Denies chest pain, palpitation, shortness of breath, says improved leg swelling. c/o need to strain when making urine. bladder sono showed large PVR. pt declined abdalla says until unless his urologist okay it tomorrow. he was aware about pros/cons Physical Examination: General Appearance: Comfortable, in no acute respiratory distress, co- operative. Vitals reviewed and noted as below Lungs: Normal respiratory rate/effort. Breath sounds bilateral equal and clear Heart: Normal rate. s1s2 normal. No rub or gallop. Extremities: 1-2+ edema. Neurological: Patient is alert, awake and oriented to person, place and time. No focal deficit. Strength bilateral appropriate and equal Skin: Warm and dry. Normal turgor. No rash. Palpitation: Normal elasticity for age Abdomen: Abdomen is soft. Bowel sounds +. There is no abdominal tenderness, no guarding/rigidity or organomegaly : kidney or bladder not palpable but exam limited as pt sitting in wheelchair Access: permacath Labs/imaging reviewed. Past medical history, past surgical history, family history, social history, allergy reviewed Objective - Vital Signs/Intake and Output Vital Signs (last 24 hours): Temp Pulse Resp BP Pulse Ox 97.7 F 76 20 136/54 L 98 02/07/17 08:37 02/07/17 08:41 02/07/17 08:37 02/07/17 08:41 02/07/17 08:37 - Medications Medications: Current Medications Aspirin (Aspirin Chewable) 81 mg PO DAILY [facility] Last Admin: 02/07/17 08:43 Dose: 81 mg Atorvastatin Calcium (Lipitor) 80 mg PO HS [facility] Last Admin: 02/06/17 21:23 Dose: 80 mg Cadexomer Iodine (Iodosorb) 1 applic TOP 0600 [facility] Last Admin: 02/07/17 06:18 Dose: 1 applic Carvedilol (Coreg) 25 mg PO Q12 [facility] Last Admin: 02/07/17 08:41 Dose: 25 mg Clopidogrel Bisulfate (Plavix) 75 mg PO DAILY [facility] Last Admin: 02/07/17 08:43 Dose: 75 mg Ezetimibe (Zetia) 10 mg PO DAILY [facility] Last Admin: 02/06/17 09:15 Dose: 10 mg Epoetin Panchito (Procrit) 10,000 unit IV TTS [facility] Last Admin: 02/05/17 20:17 Dose: 10,000 unit Furosemide (Lasix) 80 mg PO MWF [facility] Last Admin: 02/06/17 08:53 Dose: Not Given Heparin Sodium (Porcine) (Heparin) 5,000 units SC Q12 [facility] PRN Reason: Protocol Last Admin: 02/07/17 08:42 Dose: 5,000 units Iron Sucrose 100 mg/ Sodium (Chloride) 105 mls @ 105 mls/hr IVPB TTS [facility] Stop: 02/12/17 09:59 Last Admin: 02/05/17 20:15 Dose: 105 mls/hr Nystatin (Mycostatin Oint) 1 applic TOP TID [facility] Last Admin: 02/07/17 08:42 Dose: 1 oin Oxandrolone (Oxandrin) 5 mg PO BID [facility] Last Admin: 02/07/17 08:51 Dose: 5 mg Pantoprazole Sodium (Protonix Ec Tab) 40 mg PO DAILY [facility] Last Admin: 02/07/17 08:41 Dose: 40 mg Sevelamer Carbonate (Renvela) 0.8 gm PO TID [facility] Last Admin: 02/07/17 08:41 Dose: 0.8 gm Tamsulosin HCl (Flomax) 0.4 mg PO BID [facility] Last Admin: 02/07/17 08:42 Dose: 0.4 mg Vitamin B Complex/Vit C/Folic Acid (Nephro-Chris) 1 tab PO DAILY [facility] Last Admin: 02/07/17 08:43 Dose: 1 tab - Labs Labs: 02/06/17 06:00 02/07/17 07:50
--- NOTE | 2017-02-07 12:23 | CP.PCM.PN ---
Subjective - Date & Time of Evaluation Date of Evaluation: 02/07/17 Time of Evaluation: 12:15 - Subjective Subjective: Pt seen and examined. Admitted feeling good. Denied any complaint. Objective - Vital Signs/Intake and Output Vital Signs (last 24 hours): Temp Pulse Resp BP Pulse Ox 97.7 F 76 20 136/54 L 98 02/07/17 08:37 02/07/17 08:41 02/07/17 08:37 02/07/17 08:41 02/07/17 08:37 - Medications Medications: Current Medications Aspirin (Aspirin Chewable) 81 mg PO DAILY [facility] Last Admin: 02/07/17 08:43 Dose: 81 mg Atorvastatin Calcium (Lipitor) 80 mg PO HS [facility] Last Admin: 02/06/17 21:23 Dose: 80 mg Cadexomer Iodine (Iodosorb) 1 applic TOP 0600 [facility] Last Admin: 02/07/17 06:18 Dose: 1 applic Carvedilol (Coreg) 25 mg PO Q12 [facility] Last Admin: 02/07/17 08:41 Dose: 25 mg Clopidogrel Bisulfate (Plavix) 75 mg PO DAILY [facility] Last Admin: 02/07/17 08:43 Dose: 75 mg Ezetimibe (Zetia) 10 mg PO DAILY [facility] Last Admin: 02/06/17 09:15 Dose: 10 mg Epoetin Panchito (Procrit) 10,000 unit IV TTS [facility] Last Admin: 02/05/17 20:17 Dose: 10,000 unit Furosemide (Lasix) 80 mg PO MWF [facility] Last Admin: 02/06/17 08:53 Dose: Not Given Heparin Sodium (Porcine) (Heparin) 5,000 units SC Q12 [facility] PRN Reason: Protocol Last Admin: 02/07/17 08:42 Dose: 5,000 units Iron Sucrose 100 mg/ Sodium (Chloride) 105 mls @ 105 mls/hr IVPB TTS [facility] Stop: 02/12/17 09:59 Last Admin: 02/05/17 20:15 Dose: 105 mls/hr Nystatin (Mycostatin Oint) 1 applic TOP TID [facility] Last Admin: 02/07/17 08:42 Dose: 1 oin Oxandrolone (Oxandrin) 5 mg PO BID [facility] Last Admin: 02/07/17 08:51 Dose: 5 mg Pantoprazole Sodium (Protonix Ec Tab) 40 mg PO DAILY [facility] Last Admin: 02/07/17 08:41 Dose: 40 mg Sevelamer Carbonate (Renvela) 0.8 gm PO TID [facility] Last Admin: 02/07/17 08:41 Dose: 0.8 gm Tamsulosin HCl (Flomax) 0.4 mg PO BID [facility] Last Admin: 02/07/17 08:42 Dose: 0.4 mg Vitamin B Complex/Vit C/Folic Acid (Nephro-Chris) 1 tab PO DAILY [facility] Last Admin: 02/07/17 08:43 Dose: 1 tab - Labs Labs: 02/06/17 06:00 02/07/17 07:50 - Constitutional Appears: No Acute Distress - Head Exam Head Exam: ATRAUMATIC - Eye Exam Eye Exam: absent: Scleral icterus - ENT Exam ENT Exam: Mucous Membranes Moist - Neck Exam Neck Exam: absent: Meningismus - Respiratory Exam Respiratory Exam: absent: Rhonchi, Wheezes, Respiratory Distress - Cardiovascular Exam Cardiovascular Exam: REGULAR RHYTHM, +S1, +S2 - GI/Abdominal Exam GI & Abdominal Exam: Soft. absent: Tenderness - Rectal Exam Rectal Exam: Deferred - Neurological Exam Neurological Exam: Alert, Oriented x3 - Psychiatric Exam Psychiatric exam: Normal Affect - Skin Skin Exam: Dry, Intact. absent: Normal Color (patchy discoloration because of vitiligo) Assessment and Plan (1) Metabolic encephalopathy Status: Resolved (2) Diabetes mellitus type 1 Status: Acute (3) ESRD (end stage renal disease) on dialysis Status: Acute (4) Decubitus skin ulcer Status: Acute (5) Afib Status: Acute (6) DVT prophylaxis Status: Acute - Assessment and Plan (Free Text) Assessment: 66 yo male with history of IDDM, CAD, HTN was transferred from [facility] to acute rehab after he was managed there for DKA with coma, Metabolic Encephalopathy, Acute Respiratory Failure, ARF requiring dialysis and Sepsis (1) Metabolic encephalopathy improved continue PT and OT (2) Diabetes mellitus type 1 patient on insulin pump using Novolog insulin endocrinology consult with Dr Singleton (3) ESRD (end stage renal disease) on dialysis Hemodialysis schedule was switched to TThS renal consult with Dr Ch for management and dialysis orders (4) Chronic Anemia secondary to renal failure continue IV Venofer 5 bags and IV Procrit 4000 units every TThS as per stitchdown thread laster (5) Decubitus skin ulcer wound care consult (6) Afib rate controlled and presently in sinus continue Carvedilol. Heparin 5000 units SC q 12hrs as per cardiology consult, AFib was only verbally reported and may not need long period of anticoagulation Dr. Robins, on cardiology consult (7) Urinary Retention Dr Oliveira, urologist, on consult (8) DVT prophylaxis continue Heparin 5000 units SC q 12hrs
--- NOTE | 2017-02-07 14:59 | PN ---
LOCATION: In room 626. This is a 66-year-old male with recent uncontrolled type 1 insulin dependent diabetes who continues to have persistent hyperglycemic accelerations despite his ongoing [employer] insulin pump infusion as noted. His glucose levels overnight ranged from 309 to 338 and 365 mg/dL. His latest chemistries showed a BUN of 31, sodium 135, potassium 3.8, chloride 98, CO2 of 26, glucose 311, and creatinine 3.9. So at this time as discussed lengthily with the patient, the imperative need to achieve near optimal metabolic control cannot but be overemphasized. We advised the patient to go higher and titrate his basal insulin rate at 0.5 units per hour on an hourly basis to achieve glucose levels below 140 mg/dL. We also advised the patient to increase his bolus insulin to Humalog give as 20 units subQ per meal as ordered. He is quite concerned about his carb insulin ratio, but it is insignificant at this time because of the hyperglycemic accelerations as noted. We will obtain serial chemistries and supplement accordingly as needed. We will follow. Payton Singleton MD
--- NOTE | 2017-02-07 15:28 | CT ---
PROCEDURE: CT abdomen pelvis dated 02/07/2017 HISTORY: obstructive uropathy as per Dr Oliveira COMPARISON: None. TECHNIQUE: Contiguous axial images of the abdomen and pelvis performed without oral or intravenous contrast material. Given. Coronal and Sagittal reformats generated. Radiation dose: Total exam DLP = 866.98 mGy-cm. This CT exam was performed using one or more of the following dose reduction techniques: Automated exposure control, adjustment of the mA and/or kV according to patient size, and/or use of iterative reconstruction technique. FINDINGS: LOWER THORAX: There chronic on interstitial fibrotic changes and scarring both lung bases. Small calcified granuloma right posterior sulcus consistent with prior exposure to granulomatous disease process. . Several additional noncalcified small nodular densities right lung base as well as left lingular region. . There is a small vague subpleural nodular density along the right posterior sulcus with additional areas of localized pleural thickening and an adjacent parenchymal scarring. Small hiatal hernia with wall thickening of the distal esophagus that could be due to protrusion of gastric mucosa. Esophagitis not excluded. Heart size normal. No evidence of significant pericardial effusion. . Followup nonemergent CT scan of the chest recommended for further evaluation. LIVER: Liver exhibits normal size measuring approximately 16.4 cm in CC dimension. No obvious hepatic mass collection or calcification. GALLBLADDER AND BILE DUCTS: Gallbladder is incompletely distended which presumably in part accounts for thick-walled appearance (likely due to nonfasting state) however note is made of intraluminal gallbladder calculus. The possibility of chronic inflammatory process not excluded. Clinical correlation recommended. No gross intra or extrahepatic biliary ductal dilatation. PANCREAS: Pancreas appears grossly unremarkable without mass collection or calcification. SPLEEN: Spleen is enlarged measuring nearly 16 cm in AP dimension. No obvious splenic mass collection or calcification. ADRENALS: Slightly nodular appearing adrenal glands KIDNEYS AND URETERS: The kidneys exhibit relatively symmetric size. Calcifications within the renal hilar regions felt to be vascular in origin. No evidence of obstructing nephrolithiasis. No evidence of hydroureter. BLADDER: The urinary bladder is markedly distended ; rule out chronic bladder outlet obstruction. Mild wall thickening likely due to muscular hypertrophy. Cystitis or other intrinsic/invasive wall lesion cannot be completely excluded. . REPRODUCTIVE: Prostate gland measures approximately 4.1 cm in transverse dimension. In situ on penile implant hardware. APPENDIX: Normal-appearing appendix best visualized on axial image number [id number]. No periappendiceal inflammatory changes. BOWEL: Evaluation of the bowel is limited due to the lack of oral contrast material. The stomach is distended with food debris liquid and air. Visualized loops of small bowel exhibit normal contour and caliber. No evidence of acute mechanical small bowel obstruction. There is a large amount of stool seen within the cecum and at ascending and to a lesser degree remaining colon consistent with mild fecal retention/ constipation. No definitive abnormal mural wall thickening. Scattered colonic diverticula. PERITONEUM: Unremarkable. No fluid collection. No free air. . There are mild infiltration changes seen within the subcutaneous tissues suggesting mild anasarca. LYMPH NODES: Unremarkable. No enlarged lymph nodes. VASCULATURE: No evidence of abdominal aortic or iliac artery aneurysms. . Calcified atherosclerotic plaque changes seen along abdominal aorta and iliac arteries as well as the major branch vessels of the abdominal aorta. BONES: Mild multilevel degenerative spondylosis of the lower thoracic and lumbar spine. No acute compression fractures no retropulsed fragments. OTHER FINDINGS: None. IMPRESSION: Distended urinary bladder consistent with chronic bladder outlet obstruction. Mild bladder wall thickening likely due to muscular hypertrophy. Cystitis or other intrinsic wall lesion not excluded. . No evidence of nephrolithiasis or hydronephrosis. Extensive vascular calcifications seen in the renal hilar regions. In situ penile implant hardware. Mild anasarca. Small calcified granuloma right lung base with scattered small tiny parenchymal nodules both lower lung almaguer. Followup nonemergent CT scan chest recommended for further evaluation
--- NOTE | 2017-02-07 15:43 | US ---
PROCEDURE: Ultrasound of the Kidneys HISTORY: requested by Dr Oliveira COMPARISON: Comparison made with bladder ultrasound 02/06/[address] scan of the abdomen and pelvis TECHNIQUE: Sonogram of the kidneys. FINDINGS: RIGHT KIDNEY: Measures approximately 11.4 x 6.5 x 6.2 cm. Normal in size, contour and echogenicity. No stone, solid mass lesion or hydronephrosis visualized. LEFT KIDNEY: Measures approximately 7.6 x 5.1 x 6.0 cm. Normal in size, contour and echogenicity. No stone, solid mass lesion or hydronephrosis visualized. OTHER FINDINGS: Both ureteral jets visible. Layering echogenic debris is present within the urinary bladder. IMPRESSION: No evidence of shadowing calculi or hydronephrosis. Layering echogenic debris present within the urinary bladder consistent with on stasis. Rule out bladder outlet obstruction.
[2017-02-08] MEDS: Iodine 0.9% GEL TOP SCH (06:44)
[2017-02-08] MEDS: Sevelamer Carb 0.8 gm/Packet PO SCH ×3 (08:08→17:06)
[2017-02-08] MEDS: Multivitamin Vitamin B Complex (Nephro-Vite) Tab PO SCH (08:08)
[2017-02-08] MEDS: Nystatin Ointment TOP SCH ×3 (08:09→17:05)
[2017-02-08] MEDS: Pantoprazole 40 mg EC Tab PO SCH (08:10)
--- NOTE | 2017-02-08 13:16 | PSY.TMCNF ---
Nursing - Vital Signs Vital Signs (Last 8 hours): Vital Signs 02/08/17 02/08/17 08:08 08:34 Temperature 97.6 F Pulse Rate 78 78 Respiratory 20 Rate Blood Pressure 148/78 148/78 O2 Sat by Pulse 98 Oximetry Pain: 0 - Precautions: Precautions: Fall Prevention, Cardiac/Pulmonary, Pressure Ulcer - Medications/Other Issues Comment: Pt at moderate nutritional risk. goals: 1. Consume 75-100% at mealtimes(met, continue). 2. Maintain good glycemic control:GLU:70-180mg/dl( partially met, continue). 3. Intradialytic weight gains:1-2 kg(not met, continue). Follow-up due on 02/11/2017. [ End ] - Consults Comment: Nephro-. ENDO-. PSYCHOLOGIST- pending Dr. Sosa - Wound Sacrum Wound Type: Pressure Ulcer Wound Stage: Unstageable Wound Shape: Irregular Wound Length: 1.8 Wound Width: 1.8 Wound Bed Greatest Portion: Yellow ([place]) Periwound: Reddened Wound Drainage Amount: None Wound Drainage Description: Serosanguineous Wound Drainage Odor: None/Absent Wound General Appearance: Reddened Wound Dressing Status: Dry & Intact Dressing Changed: Yes Wound Primary Dressing Type: Gauze Pads Wound Secondary Dressing Type: Tegaderm Right Heel Wound Type: Other Wound Length: 2.4 Wound Width: 2.4 Periwound: Reddened Wound Drainage Amount: None Wound General Appearance: Blackened Wound Dressing Status: Open to air - Toileting Toileting: Minimal Assistance - Bladder Management Bladder Pattern: Retention Voiding Method: Toilet - Bowel Management Bowel Pattern: Normal Bowel Management: Minimal Assistance Frequency of Accidents: NONE - Transfers Transfers: Minimal Assistance - ADL's ADL's: Minimal Assistance - Pain Management Comments: DENIES - Goals/Time Frame Comments: FALL PREVENTION - Provider Provider: JENNIFER Holder Physical Therapy - Bed Mobility Bed Mobility: Verbal Cues, Contact Guard, Minimal Assistance - Transfers Sit to Stand: Supervision, Verbal Cues, Contact Guard - Ambulation Level of Assistance: Contact Guard Distance (ft.): 150 Assistive Devices: Rolling Walker - Stair Negotiation Stairs: Level of Assistance: Contact Guard, Minimal Assistance Number of Stairs: 6 Stairs: Assistive Devices: Right Handrail - Standing Balance Static Stand: Contact Guard Assist Dynamic Stand: Minimal Assistance, Moderate Assistance Comment: RW - Pain Pain (assessed during therapy session): 0 - Insight/Carryover Insight/Carryover: Good - Patient/Family Education Comment: Energy conservation, breathing techniques, fall prevention, AE/DME, compensatory strategies for dressing and bathing - Assessment/Plan Assessment: Pt continues to remain highly motivated to participate in rehab program, pt's goal is to be as independent as possible in order to return to his home and his PLOF. Pt requires continued OT services to address impaired balance, decreased endurance and strength, and decrease in independence with ADLs and functional transfers. - Goals Timeframe: 2 weeks Goals: MOD I toileting. MOD I toilet txfer. bed to chair txfer MOD I. shower txfer S. UE dressing S. LE dressing S. bathing S - Provider Therapist: Carline Damon PT License Number: [id number] Occupational Therapy - Arousal/Attention/Orientation Level of Consciousness: Awake, Alert, Forgetful Patient Orientation: Person, Place, Time - ADL/IADL Self Feeding: Independent Grooming: Supervision, Verbal Cues, Set-up Help Bathing-Upper Extremity: Supervision, Verbal Cues, Set-up Help Bathing-Lower Extremity: Moderate Assistance Dressing-Upper Extremity: Supervision, Verbal Cues, Set-up Help Dressing-Lower Extremity: Moderate Assistance - Sitting Balance Static Sitting: Independent with upper extremity support Dynamic Sitting: Requires supervision - Transfers Wheelchair to Bed Transfers: Verbal Cues, Set-up Help, Contact Guard Toilet Transfers: Verbal Cues, Set-up Help, Minimal Assistance Tub Transfers: Verbal Cues, Set-up Help, Minimal Assistance - Wheelchair Management Level of Assistance: Supervision Distance (ft.): 150 - Upper Extremity Status Right Upper Extremity Comment: ROM WFL MMT 4/5 Left Upper Extremity Comment: ROM WFL MMT 4/5 - Pain Pain (assessed during therapy session): 0 - Insight/Carryover Insight/Carryover: Good - Patient/Family Education Comment: Energy conservation, breathing techniques, fall prevention, AE/DME, compensatory strategies for dressing and bathing - Assessment/Plan Assessment: Pt continues to remain highly motivated to participate in rehab program, pt's goal is to be as independent as possible in order to return to his home and his PLOF. Pt requires continued OT services to address impaired balance, decreased endurance and strength, and decrease in independence with ADLs and functional transfers. - Goals Timeframe: 2 weeks Goals: MOD I toileting. MOD I toilet txfer. bed to chair txfer MOD I. shower txfer S. UE dressing S. LE dressing S. bathing S - Provider Therapist: Amrita Acosta License Number: [id number] Speech Therapy - Consult Information Patient on Program: Yes Medical Diagnosis: metobalic encephalopathy Treatment Diagnosis: minimal-mild cognitive deficits - Assessment Memory Impairment: Mild - Plan Assessment: Pt continues to remain highly motivated to participate in rehab program, pt's goal is to be as independent as possible in order to return to his home and his PLOF. Pt requires continued OT services to address impaired balance, decreased endurance and strength, and decrease in independence with ADLs and functional transfers. - Provider Therapist: Daria Morris License Number: [id number] Recreational Therapy - Participation Participation: Monitors His/Her Own Leisure Time - Attendance Attendance: Daily - Activities Leisure Activities: Television - Socialization Level of Socialization: Initiates/interacts freely with care givers and peer - Assessment Assessment/Plan: Pt continues to remain highly motivated to participate in rehab program, pt's goal is to be as independent as possible in order to return to his home and his PLOF. Pt requires continued OT services to address impaired balance, decreased endurance and strength, and decrease in independence with ADLs and functional transfers. - Provider Therapist: Eduarda Heredia, ADMINISTRATIVE LAW JUDGE #[id number] Nutrition - Current Diet Current Diet/ Supplement/ Feedings: Heart healthy moderate consistent CHO renal dialysis diet prostat sugar. free 30 ml 1 per day(100 kcal and 15 grams of protein) - Appetite Percent Meal Consumed: 75-100% - Assessment/Goals/Time Frame Assessment/Goals/Time Frame: Pt at moderate nutritional risk. goals: 1. Consume 75-100% at mealtimes(met, continue). 2. Maintain good glycemic control: GLU:70-180mg/dl(partially met, continue). 3. Intradialytic weight gains:1-2 kg( not met, continue). Follow-up due on 02/11/2017. [ End ] - Provider Provider: Dana Curran RD Case Management - Psychosocial Assessment Support Systems: Patient's spouse Dianne is very supportive and involved in care Psychological Interventions/Needs: Patient is alert with intermittent confusion. Discharge Concerns: Patient with 1 flight to negotiate at home Patient/Family Meeting: CM met with patient and rehab team Intervention/Goal/Outcome:: 1. Goal: Intermittent supervision overall. 2. Plan with spouse and VNS. 3. DME needs. 4. continued caregiver training. 5. f/u appts. 6. continued emotional support. 7. Tentative discharge date: 02/18/2017 - Discharge Plan Discharge Plan: Home with services Home Services: [facility] - Provider Provider: PIPER Gomez, ORDER CONTROL CLERK [employer] License Number: [id number] Rehabilitation Plan - Discharge Plan Estimated Date of Discharge: 02/18/17 Discharge to: Home
--- NOTE | 2017-02-08 15:30 | PN ---
DATE: 02/08/2017 LOCATION: Room 626 of rehab unit. SUBJECTIVE: This is a 66-year-old male with recent uncontrolled type 1 insulin dependent diabetes. He will continue the frequent glycemic fluctuations and has been followed closely with the metabolic management. His glycemic levels overnight were actually 214 to 259 and 313 mg/dL today as noted. It was 175 at lunchtime today as noted. His latest chemistry showed a BUN of 51, sodium 135, potassium 3.8, chloride 98, CO2 of 26, glucose 311, and creatinine 3.9. So at this time, we will discuss with the patient once again, imperatively to optimize his metabolic control of consistent level as noted. We will increase his basal drain to 0.5 units to be given every hour as noted. We will also continue the low dose correction scale using Humalog insulin as given. We will however continue the bolus insulin to be given at least 20 units subcu t.i.d. before meals and we will titrate incremental as indicated to optimize metabolic control. We will follow and advise accordingly. Payton Singleton MD
--- NOTE | 2017-02-08 15:43 | CP.PCM.PN ---
Subjective - Date & Time of Evaluation Date of Evaluation: 02/08/17 Time of Evaluation: 15:41 - Subjective Subjective: RENAL FOLLOW UP NOTE no events overnight Objective - Vital Signs/Intake and Output Vital Signs (last 24 hours): Temp Pulse Resp BP Pulse Ox 97.6 F 103 H 20 148/79 98 02/08/17 08:34 02/08/17 13:51 02/08/17 08:34 02/08/17 08:34 02/08/17 08:34 - Medications Medications: Current Medications Aspirin (Aspirin Chewable) 81 mg PO DAILY [facility] Last Admin: 02/08/17 08:08 Dose: 81 mg Atorvastatin Calcium (Lipitor) 80 mg PO HS [facility] Last Admin: 02/07/17 21:06 Dose: 80 mg Cadexomer Iodine (Iodosorb) 1 applic TOP 0600 [facility] Last Admin: 02/08/17 06:44 Dose: 1 applic Carvedilol (Coreg) 25 mg PO Q12 [facility] Last Admin: 02/08/17 08:08 Dose: 25 mg Clopidogrel Bisulfate (Plavix) 75 mg PO DAILY [facility] Last Admin: 02/08/17 08:09 Dose: 75 mg Ezetimibe (Zetia) 10 mg PO DAILY [facility] Last Admin: 02/08/17 08:09 Dose: 10 mg Epoetin Panchito (Procrit) 10,000 unit IV TTS [facility] Last Admin: 02/05/17 20:17 Dose: 10,000 unit Furosemide (Lasix) 80 mg PO MWF [facility] Last Admin: 02/07/17 10:00 Dose: 80 mg Guaifenesin/Dextromethorphan (Robitussin Dm) 10 ml PO Q4 PRN PRN Reason: Cough Heparin Sodium (Porcine) (Heparin) 5,000 units SC Q12 [facility] PRN Reason: Protocol Last Admin: 02/08/17 08:10 Dose: 5,000 units Iron Sucrose 100 mg/ Sodium (Chloride) 105 mls @ 105 mls/hr IVPB TTS [facility] Stop: 02/12/17 09:59 Last Admin: 02/05/17 20:15 Dose: 105 mls/hr Nystatin (Mycostatin Oint) 1 applic TOP TID [facility] Last Admin: 02/08/17 12:04 Dose: 1 oin Oxandrolone (Oxandrin) 5 mg PO BID [facility] Last Admin: 02/08/17 08:13 Dose: 5 mg Pantoprazole Sodium (Protonix Ec Tab) 40 mg PO DAILY [facility] Last Admin: 02/08/17 08:10 Dose: 40 mg Sevelamer Carbonate (Renvela) 0.8 gm PO TID [facility] Last Admin: 02/08/17 12:04 Dose: 0.8 gm Tamsulosin HCl (Flomax) 0.4 mg PO BID [facility] Last Admin: 02/08/17 08:08 Dose: 0.4 mg Vitamin B Complex/Vit C/Folic Acid (Nephro-Chris) 1 tab PO DAILY [facility] Last Admin: 02/08/17 08:08 Dose: 1 tab - Labs Labs: 02/06/17 06:00 02/07/17 07:50 - Constitutional Appears: Non-toxic, No Acute Distress - Head Exam Head Exam: NORMAL INSPECTION - Eye Exam Eye Exam: Normal appearance - ENT Exam ENT Exam: Mucous Membranes Moist - Respiratory Exam Respiratory Exam: NORMAL BREATHING PATTERN - Cardiovascular Exam Cardiovascular Exam: +S1, +S2 - GI/Abdominal Exam GI & Abdominal Exam: Soft - Extremities Exam Extremities Exam: Normal Inspection - Neurological Exam Neurological Exam: Alert, Oriented x3 - Psychiatric Exam Psychiatric exam: Normal Affect - Skin Skin Exam: Dry Assessment and Plan - Assessment and Plan (Free Text) Plan: TRACEY/DM/HTN/anemia/hyperphosphatemia HD TTS continue per schedule continue to monitor I&Os anemia: epo with hd, he finished iron infusion in january Fluid overload: UF as tolerated urine retention: post void residual has been good bp ok hyperphosphatemia: continue binders
--- NOTE | 2017-02-08 17:27 | CP.PCM.PN ---
Subjective - Date & Time of Evaluation Date of Evaluation: 02/08/17 Time of Evaluation: 17:26 - Subjective Subjective: patient seen in room doing well no pain feels stronger and very aware of his improvements He notes a good improvement in wellness with the oxandrin Objective - Vital Signs/Intake and Output Vital Signs (last 24 hours): Temp Pulse Resp BP Pulse Ox 97.6 F 103 H 20 148/79 98 02/08/17 08:34 02/08/17 13:51 02/08/17 08:34 02/08/17 08:34 02/08/17 08:34 - Medications Medications: Current Medications Aspirin (Aspirin Chewable) 81 mg PO DAILY [facility] Last Admin: 02/08/17 08:08 Dose: 81 mg Atorvastatin Calcium (Lipitor) 80 mg PO HS [facility] Last Admin: 02/07/17 21:06 Dose: 80 mg Cadexomer Iodine (Iodosorb) 1 applic TOP 0600 [facility] Last Admin: 02/08/17 06:44 Dose: 1 applic Carvedilol (Coreg) 25 mg PO Q12 [facility] Last Admin: 02/08/17 08:08 Dose: 25 mg Clopidogrel Bisulfate (Plavix) 75 mg PO DAILY [facility] Last Admin: 02/08/17 08:09 Dose: 75 mg Ezetimibe (Zetia) 10 mg PO DAILY [facility] Last Admin: 02/08/17 08:09 Dose: 10 mg Epoetin Panchito (Procrit) 10,000 unit IV TTS [facility] Last Admin: 02/05/17 20:17 Dose: 10,000 unit Furosemide (Lasix) 80 mg PO MWF [facility] Last Admin: 02/07/17 10:00 Dose: 80 mg Guaifenesin/Dextromethorphan (Robitussin Dm) 10 ml PO Q4 PRN PRN Reason: Cough Heparin Sodium (Porcine) (Heparin) 5,000 units SC Q12 [facility] PRN Reason: Protocol Last Admin: 02/08/17 08:10 Dose: 5,000 units Iron Sucrose 100 mg/ Sodium (Chloride) 105 mls @ 105 mls/hr IVPB TTS [facility] Stop: 02/12/17 09:59 Last Admin: 02/05/17 20:15 Dose: 105 mls/hr Nystatin (Mycostatin Oint) 1 applic TOP TID [facility] Last Admin: 02/08/17 17:05 Dose: 1 oin Oxandrolone (Oxandrin) 5 mg PO BID [facility] Last Admin: 02/08/17 17:07 Dose: 5 mg Pantoprazole Sodium (Protonix Ec Tab) 40 mg PO DAILY [facility] Last Admin: 02/08/17 08:10 Dose: 40 mg Sevelamer Carbonate (Renvela) 0.8 gm PO TID [facility] Last Admin: 02/08/17 17:06 Dose: 0.8 gm Tamsulosin HCl (Flomax) 0.4 mg PO BID [facility] Last Admin: 02/08/17 17:05 Dose: 0.4 mg Vitamin B Complex/Vit C/Folic Acid (Nephro-Chris) 1 tab PO DAILY [facility] Last Admin: 02/08/17 08:08 Dose: 1 tab - Labs Labs: 02/06/17 06:00 02/07/17 07:50
[2017-02-08] MEDS ORDERED: Insulin Detemir 100 Units/ml Inj SC SCH (22:00)
[2017-02-09] MEDS: EPOETIN ALFA 10,000 UNIT/ML ML IV SCH ×2 (02:13→02:27)
[2017-02-09] MEDS: Iodine 0.9% GEL TOP SCH (06:35)
[2017-02-09] MEDS: Nystatin Ointment TOP SCH ×3 (08:21→17:24)
[2017-02-09] MEDS: Sevelamer Carb 0.8 gm/Packet PO SCH ×3 (08:22→17:24)
[2017-02-09] MEDS: Multivitamin Vitamin B Complex (Nephro-Vite) Tab PO SCH (08:22)
[2017-02-09] MEDS: Pantoprazole 40 mg EC Tab PO SCH (08:22)
--- NOTE | 2017-02-09 11:31 | CP.PCM.PN ---
Subjective - Date & Time of Evaluation Date of Evaluation: 02/09/17 Time of Evaluation: 11:29 - Subjective Subjective: Patient is out of bed No new events reported Patient appears to be comfortable Objective - Vital Signs/Intake and Output Vital Signs (last 24 hours): Temp Pulse Resp BP Pulse Ox 98.2 F 78 19 123/60 98 02/09/17 09:08 02/09/17 09:08 02/09/17 09:08 02/09/17 09:08 02/09/17 09:08 - Medications Medications: Current Medications Aspirin (Aspirin Chewable) 81 mg PO DAILY [facility] Last Admin: 02/09/17 08:23 Dose: 81 mg Atorvastatin Calcium (Lipitor) 80 mg PO HS [facility] Last Admin: 02/08/17 22:46 Dose: 80 mg Cadexomer Iodine (Iodosorb) 1 applic TOP 0600 [facility] Last Admin: 02/09/17 06:35 Dose: 1 applic Carvedilol (Coreg) 25 mg PO Q12 [facility] Last Admin: 02/09/17 08:22 Dose: 25 mg Clopidogrel Bisulfate (Plavix) 75 mg PO DAILY [facility] Last Admin: 02/09/17 08:22 Dose: 75 mg Ezetimibe (Zetia) 10 mg PO DAILY [facility] Last Admin: 02/09/17 08:21 Dose: 10 mg Epoetin Panchito (Procrit) 10,000 unit IV TTS [facility] Last Admin: 02/09/17 02:27 Dose: Not Given Furosemide (Lasix) 80 mg PO MWF [facility] Last Admin: 02/09/17 08:23 Dose: 80 mg Guaifenesin/Dextromethorphan (Robitussin Dm) 10 ml PO Q4 PRN PRN Reason: Cough Heparin Sodium (Porcine) (Heparin) 5,000 units SC Q12 [facility] PRN Reason: Protocol Last Admin: 02/09/17 08:23 Dose: 5,000 units Iron Sucrose 100 mg/ Sodium (Chloride) 105 mls @ 105 mls/hr IVPB TTS [facility] Stop: 02/12/17 09:59 Last Admin: 02/09/17 02:30 Dose: Not Given Nystatin (Mycostatin Oint) 1 applic TOP TID [facility] Last Admin: 02/09/17 08:21 Dose: 1 oin Oxandrolone (Oxandrin) 5 mg PO BID [facility] Last Admin: 02/09/17 08:27 Dose: 5 mg Pantoprazole Sodium (Protonix Ec Tab) 40 mg PO DAILY [facility] Last Admin: 02/09/17 08:22 Dose: 40 mg Sevelamer Carbonate (Renvela) 0.8 gm PO TID [facility] Last Admin: 02/09/17 08:22 Dose: 0.8 gm Tamsulosin HCl (Flomax) 0.4 mg PO BID [facility] Last Admin: 02/09/17 08:21 Dose: 0.4 mg Vitamin B Complex/Vit C/Folic Acid (Nephro-Chris) 1 tab PO DAILY [facility] Last Admin: 02/09/17 08:22 Dose: 1 tab - Labs Labs: 02/06/17 06:00 02/07/17 07:50 - Constitutional Appears: No Acute Distress - ENT Exam ENT Exam: Mucous Membranes Moist - Respiratory Exam Respiratory Exam: NORMAL BREATHING PATTERN. absent: Chest Wall Tenderness - Extremities Exam Extremities Exam: absent: Calf Tenderness - Back Exam Back Exam: absent: CVA tenderness (L), CVA tenderness (R) - Neurological Exam Neurological Exam: Alert Assessment and Plan (1) ESRD (end stage renal disease) on dialysis Assessment & Plan: End stage renal disease so far is requiring dialysis We will do 24 hours urine for creatinine clearance and protein Follow-up blood work for tomorrow Status: Acute
--- NOTE | 2017-02-09 11:55 | CP.PCM.PN ---
Subjective - Date & Time of Evaluation Date of Evaluation: 02/09/17 Time of Evaluation: 11:55 - Subjective Subjective: Patient seen in room brother present resting no pain discussed with PT and he will need anterior support AFO for the foot drop continue current care Objective - Vital Signs/Intake and Output Vital Signs (last 24 hours): Temp Pulse Resp BP Pulse Ox 98.2 F 78 19 123/60 98 02/09/17 09:08 02/09/17 09:08 02/09/17 09:08 02/09/17 09:08 02/09/17 09:08 - Medications Medications: Current Medications Aspirin (Aspirin Chewable) 81 mg PO DAILY [facility] Last Admin: 02/09/17 08:23 Dose: 81 mg Atorvastatin Calcium (Lipitor) 80 mg PO HS [facility] Last Admin: 02/08/17 22:46 Dose: 80 mg Cadexomer Iodine (Iodosorb) 1 applic TOP 0600 [facility] Last Admin: 02/09/17 06:35 Dose: 1 applic Carvedilol (Coreg) 25 mg PO Q12 [facility] Last Admin: 02/09/17 08:22 Dose: 25 mg Clopidogrel Bisulfate (Plavix) 75 mg PO DAILY [facility] Last Admin: 02/09/17 08:22 Dose: 75 mg Ezetimibe (Zetia) 10 mg PO DAILY [facility] Last Admin: 02/09/17 08:21 Dose: 10 mg Epoetin Panchito (Procrit) 10,000 unit IV TTS [facility] Last Admin: 02/09/17 02:27 Dose: Not Given Furosemide (Lasix) 80 mg PO MWF [facility] Last Admin: 02/09/17 08:23 Dose: 80 mg Guaifenesin/Dextromethorphan (Robitussin Dm) 10 ml PO Q4 PRN PRN Reason: Cough Heparin Sodium (Porcine) (Heparin) 5,000 units SC Q12 [facility] PRN Reason: Protocol Last Admin: 02/09/17 08:23 Dose: 5,000 units Iron Sucrose 100 mg/ Sodium (Chloride) 105 mls @ 105 mls/hr IVPB TTS [facility] Stop: 02/12/17 09:59 Last Admin: 02/09/17 02:30 Dose: Not Given Nystatin (Mycostatin Oint) 1 applic TOP TID [facility] Last Admin: 02/09/17 08:21 Dose: 1 oin Oxandrolone (Oxandrin) 5 mg PO BID [facility] Last Admin: 02/09/17 08:27 Dose: 5 mg Pantoprazole Sodium (Protonix Ec Tab) 40 mg PO DAILY [facility] Last Admin: 02/09/17 08:22 Dose: 40 mg Sevelamer Carbonate (Renvela) 0.8 gm PO TID [facility] Last Admin: 02/09/17 08:22 Dose: 0.8 gm Tamsulosin HCl (Flomax) 0.4 mg PO BID [facility] Last Admin: 02/09/17 08:21 Dose: 0.4 mg Vitamin B Complex/Vit C/Folic Acid (Nephro-Chris) 1 tab PO DAILY [facility] Last Admin: 02/09/17 08:22 Dose: 1 tab - Labs Labs: 02/06/17 06:00 02/07/17 07:50
--- NOTE | 2017-02-09 14:31 | CP.PCM.PN ---
Subjective - Date & Time of Evaluation Date of Evaluation: 02/09/17 Time of Evaluation: 14:00 - Subjective Subjective: Pt seen and examined feels fine denies CP' no SOB participating with Pt and doing well' denies abd pain has been managing glucose thru his Insulin pump I had d/c his PICC (midline) yesterday afternoon Objective - Vital Signs/Intake and Output Vital Signs (last 24 hours): Temp Pulse Resp BP Pulse Ox 98.2 F 78 19 123/60 98 02/09/17 09:08 02/09/17 09:08 02/09/17 09:08 02/09/17 09:08 02/09/17 09:08 - Medications Medications: Current Medications Aspirin (Aspirin Chewable) 81 mg PO DAILY [facility] Last Admin: 02/09/17 08:23 Dose: 81 mg Atorvastatin Calcium (Lipitor) 80 mg PO HS [facility] Last Admin: 02/08/17 22:46 Dose: 80 mg Cadexomer Iodine (Iodosorb) 1 applic TOP 0600 [facility] Last Admin: 02/09/17 06:35 Dose: 1 applic Carvedilol (Coreg) 25 mg PO Q12 [facility] Last Admin: 02/09/17 08:22 Dose: 25 mg Clopidogrel Bisulfate (Plavix) 75 mg PO DAILY [facility] Last Admin: 02/09/17 08:22 Dose: 75 mg Ezetimibe (Zetia) 10 mg PO DAILY [facility] Last Admin: 02/09/17 08:21 Dose: 10 mg Epoetin Panchito (Procrit) 10,000 unit IV TTS [facility] Last Admin: 02/09/17 02:27 Dose: Not Given Furosemide (Lasix) 80 mg PO MWF [facility] Last Admin: 02/09/17 08:23 Dose: 80 mg Guaifenesin/Dextromethorphan (Robitussin Dm) 10 ml PO Q4 PRN PRN Reason: Cough Heparin Sodium (Porcine) (Heparin) 5,000 units SC Q12 [facility] PRN Reason: Protocol Last Admin: 02/09/17 08:23 Dose: 5,000 units Iron Sucrose 100 mg/ Sodium (Chloride) 105 mls @ 105 mls/hr IVPB TTS [facility] Stop: 02/12/17 09:59 Last Admin: 02/09/17 02:30 Dose: Not Given Nystatin (Mycostatin Oint) 1 applic TOP TID [facility] Last Admin: 02/09/17 12:59 Dose: 1 oin Oxandrolone (Oxandrin) 5 mg PO BID [facility] Last Admin: 02/09/17 08:27 Dose: 5 mg Pantoprazole Sodium (Protonix Ec Tab) 40 mg PO DAILY [facility] Last Admin: 02/09/17 08:22 Dose: 40 mg Sevelamer Carbonate (Renvela) 0.8 gm PO TID [facility] Last Admin: 02/09/17 12:59 Dose: 0.8 gm Tamsulosin HCl (Flomax) 0.4 mg PO BID [facility] Last Admin: 02/09/17 08:21 Dose: 0.4 mg Vitamin B Complex/Vit C/Folic Acid (Nephro-Chris) 1 tab PO DAILY [facility] Last Admin: 02/09/17 08:22 Dose: 1 tab - Labs Labs: 02/06/17 06:00 02/07/17 07:50 - Constitutional Appears: No Acute Distress, Chronically Ill - Head Exam Head Exam: NORMAL INSPECTION, NORMOCEPHALIC - Eye Exam Eye Exam: EOMI, Normal appearance Pupil Exam: NORMAL ACCOMODATION - ENT Exam ENT Exam: Mucous Membranes Moist, Normal External Ear Exam - Neck Exam Neck Exam: Full ROM. absent: Meningismus - Respiratory Exam Respiratory Exam: NORMAL BREATHING PATTERN. absent: Respiratory Distress - Cardiovascular Exam Cardiovascular Exam: REGULAR RHYTHM, +S1, +S2 - GI/Abdominal Exam GI & Abdominal Exam: Soft, Normal Bowel Sounds. absent: Tenderness - Extremities Exam Extremities Exam: Normal Capillary Refill. absent: Calf Tenderness, Pedal Edema Additional comments: right heel ulcer - Back Exam Back Exam: absent: CVA tenderness (L), CVA tenderness (R), paraspinal tenderness , vertebral tenderness - Neurological Exam Neurological Exam: Alert, Awake, Oriented x3 - Psychiatric Exam Psychiatric exam: Normal Affect, Normal Mood - Skin Skin Exam: Dry, Normal Color, Warm Assessment and Plan - Assessment and Plan (Free Text) Assessment: 66 yo male with history of IDDM with Insulin pump , CAD, HTN was transferred from [facility] to Acute rehab for physicl therapy. He was admitted in [facility] for DKA with coma, Metabolic Encephalopathy, Acute Respiratory Failure, ARF requiring dialysis and Sepsis. (1) Metabolic encephalopathy improved - pt is alert, oriented continue PT and OT (2) Diabetes mellitus type 1 patient on insulin pump - manages his DM by self adjusting his basal and bolus insulin requirements Glucose not controlled endocrinology consult with Dr Singleton (3) ESRD (end stage renal disease) on dialysis Hemodialysis schedule was switched to [facility] renal consulted, Dr Ch has been following pt (4) Chronic Anemia secondary to renal failure continue IV Venofer 5 bags and IV Procrit 4000 units every [facility] as per crime scene analyst (5) Decubitus skin ulcer, right Heel DTI ( POA) wound care consult Podiatry consult (6) Atrial Fibrillation episode rate controlled and presently in sinus continue Carvedilol. Heparin 5000 units SC q 12hrs as per cardiology consult, AFib was only verbally reported and may not need long period of anticoagulation Dr. Robins, on cardiology consult ECHO ; normal wall motion, normal EF cont ASA (7) Urinary Retention, improved Dr Oliveira, urologist, on consult retested pt and noted residual to be only 50 ml cont flomax (8) DVT prophylaxis continue Heparin 5000 units SC q 12hrs
--- NOTE | 2017-02-09 15:22 | PN ---
DATE: ENDO FOLLOWUP NOTE LOCATION: In room 626. This is a 66-year-old male with recent uncontrolled type 1 insulin dependent diabetes presenting here for acute rehabilitation therapy following a recent metabolic encephalopathy related to diabetic coma. After which, she was admitted to the [facility] as noted thereof. His glycemic levels are fluctuating, but much improved at this time and the latest glucose levels have ranged from 228 to 236 and 270 mg/dL. His latest chemistries showed a BUN of 31, sodium 135, potassium 3.8, chloride 98, CO2 of 26, glucose 311, and creatinine 3.9. So at this time, we will continue the resumption of his [employer] insulin pump and the patient has been allowed to self adjust his own basal and bolus insulin doses accordingly. The metabolic dose have been explained to the patient and his , Dianne at bedside regarding the need to optimize glucose values to arrange of 90 to 130 and 140 the most on a day-to-day basis. We will continue serial chemistries and supplement accordingly as needed. We will follow with you. Payton Singleton MD
--- NOTE | 2017-02-09 17:35 | CP.PCM.CON ---
History of Present Illness - History of Present Illness History of Present Illness: 66 y/o male with PMHx of diabetes type I, hx of [place], hx of diabetic hyperglycemic coma, non-Hodgkins lymphoma, metabolic encephalopathy and ESRD seen by podiatry for popped R heel blister. Patient states he has been in the hospital for 3-4 weeks following a diabetic coma. Patient admits to having diabetes for over 50 years. Pt states he has no history of ulcers or open wounds to the foot. Pt denies any tingling, burning, or numbness. Pt states he sees a industrial arts teacher in [place] but has not seen him since before he was admitted for the coma. Pt is interested in finding a local doctor to keep an eye on his feet should they ever cause any problems due to his diabetes. Pt denies any F/C/N/V/SOB. Pt is not experiencing any pain in the foot at this time. PSH: catheters in heart All: PCN Social: social EtOH, denies cigarette or drug use Review of Systems - Review of Systems All systems: reviewed and no additional remarkable complaints except (per HPI) Past Patient History - Tetanus Immunizations Tetanus Immunization: Unknown - Past Medical History & Family History Past Medical History?: Yes - Past Social History Smoking Status: Never Smoked - CARDIAC Hx Hypertension: Yes - PULMONARY Hx Pneumonia: Yes (aspiration pneumonia) Hx Respiratory Aspiration: Yes - NEUROLOGICAL Hx Seizures: Yes (hypoglycemic seizure) - HEENT Hx HEENT Problems: Yes Hx Deafness: Yes (left ear with hearing aid,pt.lost it) - RENAL Hx Chronic Kidney Disease: Yes Hx Dialysis: Yes (acute now) Type of Dialysis Access: hemodialysis Date of Last Dialysis Treatment: 01/28/17 Hx Renal Failure: Yes Other/Comment: not voiding anymore - ENDOCRINE/METABOLIC Hx Diabetes Mellitus Type 1: Yes - HEMATOLOGICAL/ONCOLOGICAL Hx AIDS: No Hx Blood Transfusions: No Hx Human Immunodeficiency Virus (HIV): No - INTEGUMENTARY Hx Dermatological Problems: No Other/Comment: vitilago - MUSCULOSKELETAL/RHEUMATOLOGICAL Hx Falls: No - GASTROINTESTINAL Hx Gastrointestinal Disorders: No - GENITOURINARY/GYNECOLOGICAL Hx Genitourinary Disorders: No Hx Hematuria: Yes (due to traumatic abdalla) Other/Comment: penile implant - PSYCHIATRIC Hx Substance Use: No - ANESTHESIA Hx Anesthesia: No Meds Allergies/Adverse Reactions: Allergies Allergy/AdvReac Type Severity Reaction Status Date / Time Penicillins Allergy Severe RASH Verified 01/28/17 21:13 - Medications Medications: Current Medications Aspirin (Aspirin Chewable) 81 mg PO DAILY [facility] Last Admin: 02/09/17 08:23 Dose: 81 mg Atorvastatin Calcium (Lipitor) 80 mg PO HS [facility] Last Admin: 02/08/17 22:46 Dose: 80 mg Cadexomer Iodine (Iodosorb) 1 applic TOP 0600 [facility] Last Admin: 02/09/17 06:35 Dose: 1 applic Carvedilol (Coreg) 25 mg PO Q12 [facility] Last Admin: 02/09/17 08:22 Dose: 25 mg Clopidogrel Bisulfate (Plavix) 75 mg PO DAILY [facility] Last Admin: 02/09/17 08:22 Dose: 75 mg Ezetimibe (Zetia) 10 mg PO DAILY [facility] Last Admin: 02/09/17 08:21 Dose: 10 mg Epoetin Panchito (Procrit) 10,000 unit IV TTS [facility] Last Admin: 02/09/17 02:27 Dose: Not Given Furosemide (Lasix) 80 mg PO MWF [facility] Last Admin: 02/09/17 08:23 Dose: 80 mg Guaifenesin/Dextromethorphan (Robitussin Dm) 10 ml PO Q4 PRN PRN Reason: Cough Heparin Sodium (Porcine) (Heparin) 5,000 units SC Q12 [facility] PRN Reason: Protocol Last Admin: 02/09/17 08:23 Dose: 5,000 units Iron Sucrose 100 mg/ Sodium (Chloride) 105 mls @ 105 mls/hr IVPB TTS [facility] Stop: 02/12/17 09:59 Last Admin: 02/09/17 02:30 Dose: Not Given Nystatin (Mycostatin Oint) 1 applic TOP TID [facility] Last Admin: 02/09/17 17:24 Dose: 1 oin Oxandrolone (Oxandrin) 5 mg PO BID [facility] Last Admin: 02/09/17 17:23 Dose: 5 mg Pantoprazole Sodium (Protonix Ec Tab) 40 mg PO DAILY [facility] Last Admin: 02/09/17 08:22 Dose: 40 mg Sevelamer Carbonate (Renvela) 0.8 gm PO TID [facility] Last Admin: 02/09/17 17:24 Dose: 0.8 gm Tamsulosin HCl (Flomax) 0.4 mg PO BID [facility] Last Admin: 02/09/17 17:24 Dose: 0.4 mg Vitamin B Complex/Vit C/Folic Acid (Nephro-Chris) 1 tab PO DAILY [facility] Last Admin: 02/09/17 08:22 Dose: 1 tab Physical Exam - Constitutional Appears: Well, Non-toxic, No Acute Distress - Extremities Exam Additional comments: RLE focused examination: Vasc: DP/PT pulses palpable 2/4. Temperature gradient warm to cool. CFT < 3 sec to all digits. No pedal edema Derm: 4cm x 3cm x superficial blood blister noted to heel with 0.5cm opening proximally. Dry blood noted within blister. No purulence, no malodor, no fluctuance, no undermining, no underlying ulceration, no tunneling, no erythema , no cellulitic changes. No clinical signs of infection. Neuro: Protective sensation grossly intact Ortho: No tenderness upon palpation of R heel blister - Neurological Exam Neurological exam: Alert, Oriented x3 - Psychiatric Exam Psychiatric exam: Normal Affect, Normal Mood Results - Vital Signs Recent Vital Signs: Last Vital Signs Temp 98.2 F 02/09/17 09:08 Pulse 78 02/09/17 09:08 Resp 19 02/09/17 09:08 BP 123/60 02/09/17 09:08 Pulse Ox 98 02/09/17 09:08 - Labs Result Diagrams: 02/06/17 06:00 02/07/17 07:50 Labs: Laboratory Results - last 24 hr 02/08/17 02/08/17 02/09/17 16:08 22:44 06:31 POC Glucose (mg/dL) 253 H 236 H 228 H 02/09/17 02/09/17 11:11 16:05 POC Glucose (mg/dL) 270 H 276 H Assessment & Plan - Assessment and Plan (Free Text) Assessment: 66 y/o male with R heel pressure blister Plan: Pt seen and chart evaluated Discussed plan in detail with attending Dr. Weldon Chart, labs and vitals reviewed- afebrile, last WBC WNL Cleansed R heel blister with saline and 4x4 gauze and removed dry blood from underneath blister roof Aseptic excisional debridement of overlying skin with sterile forceps and sterile scissors down to level of healthy skin Pt tolerated procedure without incident Applied Bacitracin and DSD to R foot Ordered Multipodus boot to be worn on R foot at all times in bed Podiatry to continue daily dressing changes to R foot Thank you for the consult
--- NOTE | 2017-02-10 07:07 | CP.PCM.PN ---
Subjective - Date & Time of Evaluation Date of Evaluation: 02/10/17 Time of Evaluation: 11:54 - Subjective Subjective: 66 y/o IDDM male seen at bedside for popped R heel blister. Patient is resting comfortably in his chair in NAD. Pt states he has been walking more with PT and the foot is not bothering him. Pt denies any F/C/N/V/SOB. Pt is not experiencing any pain in the foot at this time. Objective - Vital Signs/Intake and Output Vital Signs (last 24 hours): Temp Pulse Resp BP Pulse Ox 97.9 F 74 20 140/52 L 98 02/09/17 19:50 02/09/17 21:37 02/09/17 19:50 02/09/17 21:37 02/09/17 19:50 - Medications Medications: Current Medications Aspirin (Aspirin Chewable) 81 mg PO DAILY [facility] Last Admin: 02/09/17 08:23 Dose: 81 mg Atorvastatin Calcium (Lipitor) 80 mg PO HS [facility] Last Admin: 02/09/17 21:36 Dose: 80 mg Bacitracin (Bacitracin Oint) 1 applic TOP BID [facility] Cadexomer Iodine (Iodosorb) 1 applic TOP 0600 [facility] Last Admin: 02/09/17 06:35 Dose: 1 applic Carvedilol (Coreg) 25 mg PO Q12 [facility] Last Admin: 02/09/17 21:37 Dose: 25 mg Clopidogrel Bisulfate (Plavix) 75 mg PO DAILY [facility] Last Admin: 02/09/17 08:22 Dose: 75 mg Ezetimibe (Zetia) 10 mg PO DAILY [facility] Last Admin: 02/09/17 08:21 Dose: 10 mg Epoetin Panchito (Procrit) 10,000 unit IV TTS [facility] Last Admin: 02/09/17 02:27 Dose: Not Given Furosemide (Lasix) 80 mg PO MWF [facility] Last Admin: 02/09/17 08:23 Dose: 80 mg Guaifenesin/Dextromethorphan (Robitussin Dm) 10 ml PO Q4 PRN PRN Reason: Cough Heparin Sodium (Porcine) (Heparin) 5,000 units SC Q12 [facility] PRN Reason: Protocol Last Admin: 02/09/17 21:38 Dose: 5,000 units Iron Sucrose 100 mg/ Sodium (Chloride) 105 mls @ 105 mls/hr IVPB TTS [facility] Stop: 02/12/17 09:59 Last Admin: 02/09/17 02:30 Dose: Not Given Nystatin (Mycostatin Oint) 1 applic TOP TID [facility] Last Admin: 02/09/17 17:24 Dose: 1 oin Oxandrolone (Oxandrin) 5 mg PO BID [facility] Last Admin: 02/09/17 17:23 Dose: 5 mg Pantoprazole Sodium (Protonix Ec Tab) 40 mg PO DAILY [facility] Last Admin: 02/09/17 08:22 Dose: 40 mg Sevelamer Carbonate (Renvela) 0.8 gm PO TID [facility] Last Admin: 02/09/17 17:24 Dose: 0.8 gm Tamsulosin HCl (Flomax) 0.4 mg PO BID [facility] Last Admin: 02/09/17 17:24 Dose: 0.4 mg Vitamin B Complex/Vit C/Folic Acid (Nephro-Chris) 1 tab PO DAILY [facility] Last Admin: 02/09/17 08:22 Dose: 1 tab - Labs Labs: 02/06/17 06:00 02/07/17 07:50 - Constitutional Appears: Well, Non-toxic, No Acute Distress - Extremities Exam Additional comments: RLE focused examination: Vasc: DP/PT pulses palpable 2/4. Temperature gradient warm to cool. CFT < 3 sec to all digits. No pedal edema Derm: 4cm x 3cm x superficial blood blister noted to heel with 0.5cm opening proximally. Sanguinous drainage noted on dressing. No purulence, no malodor, no fluctuance, no undermining, no underlying ulceration, no tunneling, no erythema , no cellulitic changes. No clinical signs of infection. Neuro: Protective sensation grossly intact Ortho: No tenderness upon palpation of R heel blister - Neurological Exam Neurological Exam: Alert, Awake, Oriented x3 - Psychiatric Exam Psychiatric exam: Normal Affect, Normal Mood Assessment and Plan - Assessment and Plan (Free Text) Assessment: 66 y/o male with R heel pressure blister Plan: Pt seen and chart evaluated Discussed plan in detail with attending Dr. Weldon Chart, labs and vitals reviewed- afebrile, last WBC WNL Cleansed R heel blister with saline and 4x4 gauze Applied Bacitracin and DSD to R foot Pt instructed to wear heel protective boots to offload the area at all times in bed or resting in his chair Pt advised that he can fully weight bear with physical therapy but to keep his dressings intact Podiatry to continue daily dressing changes to R foot
[2017-02-10 07:10] LABS: POTASSIUM 3.7 MMOL/L (3.6-5.0)
[2017-02-10] MEDS: Iodine 0.9% GEL TOP SCH (07:18)
--- NOTE | 2017-02-10 08:30 | CON ---
A 66-year-old male who was admitted with acute encephalopathy. The patient has long history of diabetes and renal failure. The patient was rehabilitated slowly with exercise and medication. The patient is on dialysis for renal failure, and on admission to the hospital, the patient had a residual urine of 400 mL. The patient was followed closely with further urination and found that his residual had diminished appreciably. Again, the patient is more alert, and voiding well. The bladder scan as of revealed residual of 50 mL. There was no evidence of any hydronephrosis or ureteral obstruction prior to the procedures that were done. The patient is now undergoing rehab and will be followed as necessary by his primary urologist. Jero Oliveira MD MTDPer[facility]
[2017-02-10] MEDS: Sevelamer Carb 0.8 gm/Packet PO SCH ×3 (08:56→16:54)
[2017-02-10] MEDS: Multivitamin Vitamin B Complex (Nephro-Vite) Tab PO SCH (08:57)
[2017-02-10] MEDS: Pantoprazole 40 mg EC Tab PO SCH (08:57)
[2017-02-10] MEDS: Nystatin Ointment TOP SCH ×3 (08:57→16:54)
[2017-02-10] MEDS: Bacitracin OINT 15GM TOP SCH ×2 (10:30→16:54)
[2017-02-10] MEDS: EPOETIN ALFA 10,000 UNIT/ML ML IV SCH (10:58)
[2017-02-10] MEDS ORDERED: EPOETIN ALFA 10,000 UNIT/ML ML SC ONE (11:04)
--- NOTE | 2017-02-10 11:18 | CP.PCM.PN ---
Subjective - Date & Time of Evaluation Date of Evaluation: 02/10/17 Time of Evaluation: 11:16 - Subjective Subjective: Patient receiving physiotherapy Awake and doing much better Urine output improving this morning so far about 500 mL Serum creatinine appears to be coming down 2.8 was GFR around 24 Physical exam Chest no rales Heart no rubs Abdomen soft Extremity edema coming down rapidly Impression and plan Patient started with acute renal failure on dialysis however it seems Lydick urine output started to improve and also serum creatinine started to come down therefore we will hold dialysis today and to monitor for kidney function for tomorrow and to make further decision tomorrow. Give EPO subcutaneous for today Objective - Vital Signs/Intake and Output Vital Signs (last 24 hours): Temp Pulse Resp BP Pulse Ox 97.0 F L 80 22 138/61 95 02/10/17 09:00 02/10/17 09:00 02/10/17 09:00 02/10/17 09:00 02/10/17 09:00 - Medications Medications: Current Medications Aspirin (Aspirin Chewable) 81 mg PO DAILY [facility] Last Admin: 02/10/17 08:56 Dose: 81 mg Atorvastatin Calcium (Lipitor) 80 mg PO HS [facility] Last Admin: 02/09/17 21:36 Dose: 80 mg Bacitracin (Bacitracin Oint) 1 applic TOP BID [facility] Cadexomer Iodine (Iodosorb) 1 applic TOP 0600 [facility] Last Admin: 02/10/17 07:18 Dose: 1 applic Carvedilol (Coreg) 25 mg PO Q12 [facility] Last Admin: 02/10/17 08:53 Dose: 25 mg Clopidogrel Bisulfate (Plavix) 75 mg PO DAILY [facility] Last Admin: 02/10/17 08:57 Dose: 75 mg Ezetimibe (Zetia) 10 mg PO DAILY [facility] Last Admin: 02/10/17 08:53 Dose: 10 mg Epoetin Panchito (Procrit) 10,000 unit IV TTS [facility] Last Admin: 02/10/17 10:58 Dose: Not Given Furosemide (Lasix) 80 mg PO MWF [facility] Last Admin: 02/09/17 08:23 Dose: 80 mg Guaifenesin/Dextromethorphan (Robitussin Dm) 10 ml PO Q4 PRN PRN Reason: Cough Heparin Sodium (Porcine) (Heparin) 5,000 units SC Q12 [facility] PRN Reason: Protocol Last Admin: 02/10/17 08:56 Dose: 5,000 units Iron Sucrose 100 mg/ Sodium (Chloride) 105 mls @ 105 mls/hr IVPB TTS [facility] Stop: 02/12/17 09:59 Last Admin: 02/10/17 10:59 Dose: Not Given Nystatin (Mycostatin Oint) 1 applic TOP TID [facility] Last Admin: 02/10/17 08:57 Dose: 1 oin Oxandrolone (Oxandrin) 5 mg PO BID [facility] Last Admin: 02/10/17 08:59 Dose: 5 mg Pantoprazole Sodium (Protonix Ec Tab) 40 mg PO DAILY [facility] Last Admin: 02/10/17 08:57 Dose: 40 mg Sevelamer Carbonate (Renvela) 0.8 gm PO TID [facility] Last Admin: 02/10/17 08:56 Dose: 0.8 gm Tamsulosin HCl (Flomax) 0.4 mg PO BID [facility] Last Admin: 02/10/17 08:56 Dose: 0.4 mg Vitamin B Complex/Vit C/Folic Acid (Nephro-Chris) 1 tab PO DAILY [facility] Last Admin: 02/10/17 08:57 Dose: 1 tab - Labs Labs: 02/06/17 06:00 02/10/17 06:15 Assessment and Plan (1) ESRD (end stage renal disease) on dialysis Status: Acute
--- NOTE | 2017-02-10 18:00 | CP.PCM.PN ---
Subjective - Date & Time of Evaluation Date of Evaluation: 02/10/17 Time of Evaluation: 17:58 - Subjective Subjective: patient is in fantastic spirits as he passed 800cc of urine and creatinine was below 3. HD was held and labs will be drawn again tomorrow he is making great gains in PT as well with greatly improved function he is very happy Objective - Vital Signs/Intake and Output Vital Signs (last 24 hours): Temp Pulse Resp BP Pulse Ox 97.0 F L 80 22 138/61 95 02/10/17 09:00 02/10/17 09:00 02/10/17 09:00 02/10/17 09:00 02/10/17 09:00 - Medications Medications: Current Medications Aspirin (Aspirin Chewable) 81 mg PO DAILY [facility] Last Admin: 02/10/17 08:56 Dose: 81 mg Atorvastatin Calcium (Lipitor) 80 mg PO HS [facility] Last Admin: 02/09/17 21:36 Dose: 80 mg Cadexomer Iodine (Iodosorb) 1 applic TOP 0600 [facility] Last Admin: 02/10/17 07:18 Dose: 1 applic Carvedilol (Coreg) 25 mg PO Q12 [facility] Last Admin: 02/10/17 08:53 Dose: 25 mg Clopidogrel Bisulfate (Plavix) 75 mg PO DAILY [facility] Last Admin: 02/10/17 08:57 Dose: 75 mg Ezetimibe (Zetia) 10 mg PO DAILY [facility] Last Admin: 02/10/17 08:53 Dose: 10 mg Epoetin Panchito (Procrit) 10,000 unit IV TTS [facility] Last Admin: 02/10/17 10:58 Dose: Not Given Furosemide (Lasix) 80 mg PO MWF [facility] Last Admin: 02/09/17 08:23 Dose: 80 mg Guaifenesin/Dextromethorphan (Robitussin Dm) 10 ml PO Q4 PRN PRN Reason: Cough Heparin Sodium (Porcine) (Heparin) 5,000 units SC Q12 [facility] PRN Reason: Protocol Last Admin: 02/10/17 08:56 Dose: 5,000 units Iron Sucrose 100 mg/ Sodium (Chloride) 105 mls @ 105 mls/hr IVPB TTS [facility] Stop: 02/12/17 09:59 Last Admin: 02/10/17 10:59 Dose: Not Given Nystatin (Mycostatin Oint) 1 applic TOP TID [facility] [place] Last Admin: 02/10/17 16:54 Dose: 1 oin Oxandrolone (Oxandrin) 5 mg PO BID [facility] Last Admin: 02/10/17 16:56 Dose: 5 mg Pantoprazole Sodium (Protonix Ec Tab) 40 mg PO DAILY [facility] Last Admin: 02/10/17 08:57 Dose: 40 mg Sevelamer Carbonate (Renvela) 0.8 gm PO TID [facility] Last Admin: 02/10/17 16:54 Dose: 0.8 gm Tamsulosin HCl (Flomax) 0.4 mg PO BID [facility] [place] Last Admin: 02/10/17 16:54 Dose: 0.4 mg Vitamin B Complex/Vit C/Folic Acid (Nephro-Chris) 1 tab PO DAILY [facility] Last Admin: 02/10/17 08:57 Dose: 1 tab - Labs Labs: 02/06/17 06:00 02/10/17 06:15
--- NOTE | 2017-02-10 21:08 | PN ---
LOCATION: Room #626 SUBJECTIVE: This is a 66-year-old male with recent uncontrolled type 1 insulin-dependent diabetes, currently undergoing acute rehabilitation here at the rehab unit following a recent bout of DKA and metabolic encephalopathy with concomitant acute respiratory failure and acute renal failure and is currently dialysis dependent at this time. His glycemic levels are fluctuating, clearly related to the variabilities of his oral intake and also to be viability of his insulin dose regimen as given. He is back on his [employer] insulin pump as noted. I believe the latest glucose levels overnight have ranged from 243 to 276 and 301 mg/dL today. The latest glucose level is now 176 as noted. The latest chemistry shows a BUN of 28, sodium 136, potassium 3.7, chloride 101, CO2 of 26, glucose 264 and creatinine 2.8, so at this time, we will encourage the patient to modify once again his overnight basal insulin for much higher dosing regimen accordingly. He is allowed to self adjust his own basal and bolus insulin regimen as given. We will titrate incrementally as indicated to optimize metabolic control. We will follow with you. Payton Singleton MD
--- NOTE | 2017-02-11 06:54 | CP.PCM.PN ---
Subjective - Date & Time of Evaluation Date of Evaluation: 02/11/17 Time of Evaluation: 10:42 - Subjective Subjective: 66 y/o IDDM male seen at bedside for popped R heel blister. Patient is resting comfortably in his chair in NAD. Pt states he has been walking more with PT and the foot is not bothering him. Pt states that he has been wearing the offloading boots on his feet at all times he is in bed. Pt denies any F/C/N/V/ SOB. Pt is not experiencing any pain in the foot at this time. Objective - Vital Signs/Intake and Output Vital Signs (last 24 hours): Temp Pulse Resp BP Pulse Ox 98.1 F 71 20 152/72 H 96 02/10/17 19:59 02/10/17 21:21 02/10/17 19:59 02/10/17 21:21 02/10/17 19:59 - Medications Medications: Current Medications Aspirin (Aspirin Chewable) 81 mg PO DAILY [facility] Last Admin: 02/10/17 08:56 Dose: 81 mg Atorvastatin Calcium (Lipitor) 80 mg PO HS [facility] Last Admin: 02/10/17 21:22 Dose: 80 mg Cadexomer Iodine (Iodosorb) 1 applic TOP 0600 [facility] Last Admin: 02/10/17 07:18 Dose: 1 applic Carvedilol (Coreg) 25 mg PO Q12 [facility] Last Admin: 02/10/17 21:21 Dose: 25 mg Clopidogrel Bisulfate (Plavix) 75 mg PO DAILY [facility] Last Admin: 02/10/17 08:57 Dose: 75 mg Ezetimibe (Zetia) 10 mg PO DAILY [facility] Last Admin: 02/10/17 08:53 Dose: 10 mg Epoetin Panchito (Procrit) 10,000 unit IV TTS [facility] Last Admin: 02/10/17 10:58 Dose: Not Given Furosemide (Lasix) 80 mg PO MWF [facility] Last Admin: 02/09/17 08:23 Dose: 80 mg Guaifenesin/Dextromethorphan (Robitussin Dm) 10 ml PO Q4 PRN PRN Reason: Cough Heparin Sodium (Porcine) (Heparin) 5,000 units SC Q12 [facility] PRN Reason: Protocol Last Admin: 02/10/17 21:21 Dose: 5,000 units Iron Sucrose 100 mg/ Sodium (Chloride) 105 mls @ 105 mls/hr IVPB TTS [facility] Stop: 02/12/17 09:59 Last Admin: 02/10/17 10:59 Dose: Not Given Nystatin (Mycostatin Oint) 1 applic TOP TID [facility] Last Admin: 02/10/17 16:54 Dose: 1 oin Oxandrolone (Oxandrin) 5 mg PO BID [facility] Last Admin: 02/10/17 16:56 Dose: 5 mg Pantoprazole Sodium (Protonix Ec Tab) 40 mg PO DAILY [facility] Last Admin: 02/10/17 08:57 Dose: 40 mg Sevelamer Carbonate (Renvela) 0.8 gm PO TID [facility] Last Admin: 02/10/17 16:54 Dose: 0.8 gm Tamsulosin HCl (Flomax) 0.4 mg PO BID [facility] Last Admin: 02/10/17 16:54 Dose: 0.4 mg Vitamin B Complex/Vit C/Folic Acid (Nephro-Chris) 1 tab PO DAILY [facility] Last Admin: 02/10/17 08:57 Dose: 1 tab - Labs Labs: 02/06/17 06:00 02/10/17 06:15 - Constitutional Appears: Well, Non-toxic, No Acute Distress - Extremities Exam Additional comments: RLE focused examination: Vasc: DP/PT pulses palpable 2/4. Temperature gradient warm to cool. CFT < 3 sec to all digits. No pedal edema Derm: 3.5cm x 2.5cm x superficial blood blister noted to heel. Distal half of blister has intact skin roof, proximal half reveals healthy pink superficial tissue. No sanguinous drainage noted today on previous dressing. No purulence, no malodor, no fluctuance, no undermining, no underlying ulceration, no tunneling, no erythema, no cellulitic changes. No clinical signs of infection. Neuro: Protective sensation grossly intact Ortho: No tenderness upon palpation of R heel blister - Neurological Exam Neurological Exam: Alert, Awake, Oriented x3 Assessment and Plan - Assessment and Plan (Free Text) Assessment: 66 y/o male with R heel pressure blister Plan: Pt seen and chart evaluated Discussed plan in detail with attending Dr. Weldon Chart, labs and vitals reviewed- afebrile, last WBC WNL Cleansed R heel blister with saline and 4x4 gauze Applied Bacitracin and DSD to R foot Pt instructed to continue to wear heel protective boots to offload the area at all times in bed or resting in his chair Pt advised that he can fully weight bear with physical therapy but to keep his dressings intact Nursing orders placed to change dressings daily with Bacitracin and DSD Podiatry will continue to follow while in house
[2017-02-11 06:58] LABS: CALCIUM 8.3 mg/dL (8.4-10.2); POTASSIUM 3.8 MMOL/L (3.6-5.0)
[2017-02-11] MEDS: Iodine 0.9% GEL TOP SCH (07:14)
--- NOTE | 2017-02-11 08:03 | CP.PCM.CON ---
History of Present Illness - History of Present Illness History of Present Illness: Pt is a 66 year old male admitted to [facility] and referred to the senior copywriter for darshana. Med history postive for DM for 50+ years. See medical record for additional med history and medications. Social History: pt lives with his girlfriend/partner of 18 years. He has two chiildren though is estranged from them. Pt reported a very postive relationship with his girlfriend/partner. Ed.Voc: pt raised in [place], graduated [employer]. 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 Psych- Pt reported counseling for ten sessions years ago for depression. No meds prescribed. Pt negative for history of alc/sub abuse. Pt spoke of the medical events precipitating his admission. Discussed the desire to remain off dialysis and to feel comfortable to the pump settings. MSE: pt alert, oriented x3. relevant/coherent, no psychosis, affect constricted , mood anxious, no suicidal no homicidal ideation. Dx: ADjustment dx with Anxiety Plan: continued Sup therapy Past Patient History - Tetanus Immunizations Tetanus Immunization: Unknown - Past Medical History & Family History Past Medical History?: Yes - Past Social History Smoking Status: Never Smoked - CARDIAC Hx Hypertension: Yes - PULMONARY Hx Pneumonia: Yes (aspiration pneumonia) Hx Respiratory Aspiration: Yes - NEUROLOGICAL Hx Seizures: Yes (hypoglycemic seizure) - HEENT Hx HEENT Problems: Yes Hx Deafness: Yes (left ear with hearing aid,pt.lost it) - RENAL Hx Chronic Kidney Disease: Yes Hx Dialysis: Yes (acute now) Type of Dialysis Access: hemodialysis Date of Last Dialysis Treatment: 01/28/17 Hx Renal Failure: Yes Other/Comment: not voiding anymore - ENDOCRINE/METABOLIC Hx Diabetes Mellitus Type 1: Yes - HEMATOLOGICAL/ONCOLOGICAL Hx AIDS: No Hx Blood Transfusions: No Hx Human Immunodeficiency Virus (HIV): No - INTEGUMENTARY Hx Dermatological Problems: No Other/Comment: vitilago - MUSCULOSKELETAL/RHEUMATOLOGICAL Hx Falls: No - GASTROINTESTINAL Hx Gastrointestinal Disorders: No - GENITOURINARY/GYNECOLOGICAL Hx Genitourinary Disorders: No Hx Hematuria: Yes (due to traumatic abdalla) Other/Comment: penile implant - PSYCHIATRIC Hx Substance Use: No - ANESTHESIA Hx Anesthesia: No Meds Allergies/Adverse Reactions: Allergies Allergy/AdvReac Type Severity Reaction Status Date / Time Penicillins Allergy Severe RASH Verified 01/28/17 21:13 - Medications Medications: Current Medications Aspirin (Aspirin Chewable) 81 mg PO DAILY [facility] Last Admin: 02/10/17 08:56 Dose: 81 mg Atorvastatin Calcium (Lipitor) 80 mg PO HS [facility] Last Admin: 02/10/17 21:22 Dose: 80 mg Cadexomer Iodine (Iodosorb) 1 applic TOP 0600 [facility] Last Admin: 02/11/17 07:14 Dose: 1 applic Carvedilol (Coreg) 25 mg PO Q12 [facility] Last Admin: 02/10/17 21:21 Dose: 25 mg Clopidogrel Bisulfate (Plavix) 75 mg PO DAILY [facility] Last Admin: 02/10/17 08:57 Dose: 75 mg Ezetimibe (Zetia) 10 mg PO DAILY [facility] Last Admin: 02/10/17 08:53 Dose: 10 mg Epoetin Panchito (Procrit) 10,000 unit IV TTS [facility] Last Admin: 02/10/17 10:58 Dose: Not Given Furosemide (Lasix) 80 mg PO MWF [facility] Last Admin: 02/09/17 08:23 Dose: 80 mg Guaifenesin/Dextromethorphan (Robitussin Dm) 10 ml PO Q4 PRN PRN Reason: Cough Heparin Sodium (Porcine) (Heparin) 5,000 units SC Q12 [facility] PRN Reason: Protocol Last Admin: 02/10/17 21:21 Dose: 5,000 units Iron Sucrose 100 mg/ Sodium (Chloride) 105 mls @ 105 mls/hr IVPB TTS [facility] Stop: 02/12/17 09:59 Last Admin: 02/10/17 10:59 Dose: Not Given Nystatin (Mycostatin Oint) 1 applic TOP TID [facility] Last Admin: 02/10/17 16:54 Dose: 1 oin Oxandrolone (Oxandrin) 5 mg PO BID [facility] Last Admin: 02/10/17 16:56 Dose: 5 mg Pantoprazole Sodium (Protonix Ec Tab) 40 mg PO DAILY [facility] Last Admin: 02/10/17 08:57 Dose: 40 mg Sevelamer Carbonate (Renvela) 0.8 gm PO TID [facility] Last Admin: 02/10/17 16:54 Dose: 0.8 gm Tamsulosin HCl (Flomax) 0.4 mg PO BID [facility] Last Admin: 02/10/17 16:54 Dose: 0.4 mg Vitamin B Complex/Vit C/Folic Acid (Nephro-Chris) 1 tab PO DAILY [facility] Last Admin: 02/10/17 08:57 Dose: 1 tab Results - Vital Signs Recent Vital Signs: Last Vital Signs Temp 98.1 F 02/10/17 19:59 Pulse 71 02/10/17 21:21 Resp 20 02/10/17 19:59 BP 152/72 H 02/10/17 21:21 Pulse Ox 96 02/10/17 19:59 - Labs Result Diagrams: 02/06/17 06:00 02/11/17 06:37 Labs: Laboratory Results - last 24 hr 02/10/17 02/10/17 02/10/17 06:31 11:39 16:07 Sodium Potassium Chloride Carbon Dioxide Anion Gap BUN Creatinine Est GFR ( Amer) Est GFR (Non-Af Amer) POC Glucose (mg/dL) 301 H 176 H 239 H Random Glucose Calcium 02/10/17 02/11/17 02/11/17 20:24 06:37 07:02 Sodium 138 Potassium 3.8 Chloride 103 Carbon Dioxide 26 Anion Gap 13 BUN 33 H Creatinine 3.0 H Est GFR ( Amer) 26 Est GFR (Non-Af Amer) 21 POC Glucose (mg/dL) 249 H 286 H Random Glucose 227 H Calcium 8.3 L
[2017-02-11] MEDS: Sevelamer Carb 0.8 gm/Packet PO SCH ×3 (08:29→17:35)
[2017-02-11] MEDS: Nystatin Ointment TOP SCH ×3 (08:29→17:31)
[2017-02-11] MEDS: Pantoprazole 40 mg EC Tab PO SCH (08:30)
[2017-02-11] MEDS: Multivitamin Vitamin B Complex (Nephro-Vite) Tab PO SCH (08:30)
--- NOTE | 2017-02-11 13:51 | CP.PCM.PN ---
Subjective - Date & Time of Evaluation Date of Evaluation: 02/11/17 Time of Evaluation: 13:48 - Subjective Subjective: Patient is out of bed in the chair Patient appears to be comfortable Vital signs stable Objective - Vital Signs/Intake and Output Vital Signs (last 24 hours): Temp Pulse Resp BP Pulse Ox 98.2 F 77 18 161/76 H 99 02/11/17 09:34 02/11/17 09:34 02/11/17 09:34 02/11/17 09:34 02/11/17 09:34 - Medications Medications: Current Medications Aspirin (Aspirin Chewable) 81 mg PO DAILY [facility] Last Admin: 02/11/17 08:30 Dose: 81 mg Atorvastatin Calcium (Lipitor) 80 mg PO HS [facility] Last Admin: 02/10/17 21:22 Dose: 80 mg Cadexomer Iodine (Iodosorb) 1 applic TOP 0600 [facility] Last Admin: 02/11/17 07:14 Dose: 1 applic Carvedilol (Coreg) 25 mg PO Q12 [facility] Last Admin: 02/11/17 08:30 Dose: 25 mg Clopidogrel Bisulfate (Plavix) 75 mg PO DAILY [facility] Last Admin: 02/11/17 08:30 Dose: 75 mg Ezetimibe (Zetia) 10 mg PO DAILY [facility] Last Admin: 02/11/17 08:30 Dose: 10 mg Epoetin Panchito (Procrit) 10,000 unit IV TTS [facility] Last Admin: 02/10/17 10:58 Dose: Not Given Epoetin Panchito (Procrit) 8,000 unit SC F [facility] Furosemide (Lasix) 80 mg PO F [facility] Last Admin: 02/11/17 08:30 Dose: 80 mg Guaifenesin/Dextromethorphan (Robitussin Dm) 10 ml PO Q4 PRN PRN Reason: Cough Heparin Sodium (Porcine) (Heparin) 5,000 units SC Q12 [facility] PRN Reason: Protocol Last Admin: 02/11/17 08:29 Dose: 5,000 units Iron Sucrose 100 mg/ Sodium (Chloride) 105 mls @ 105 mls/hr IVPB DAILY [facility] Stop: 02/13/17 09:59 Nystatin (Mycostatin Oint) 1 applic TOP TID [facility] Last Admin: 02/11/17 12:26 Dose: 1 oin Oxandrolone (Oxandrin) 5 mg PO BID [facility] Last Admin: 02/11/17 08:29 Dose: 5 mg Pantoprazole Sodium (Protonix Ec Tab) 40 mg PO DAILY [facility] Last Admin: 02/11/17 08:30 Dose: 40 mg Sevelamer Carbonate (Renvela) 0.8 gm PO TID [facility] Last Admin: 02/11/17 12:27 Dose: 0.8 gm Tamsulosin HCl (Flomax) 0.4 mg PO BID [facility] Last Admin: 02/11/17 08:30 Dose: 0.4 mg Vitamin B Complex/Vit C/Folic Acid (Nephro-Chris) 1 tab PO DAILY [facility] Last Admin: 02/11/17 08:30 Dose: 1 tab - Labs Labs: 02/06/17 06:00 02/11/17 09:00 - Constitutional Appears: No Acute Distress - ENT Exam ENT Exam: Mucous Membranes Moist - Respiratory Exam Respiratory Exam: absent: Chest Wall Tenderness - Cardiovascular Exam Cardiovascular Exam: absent: JVD, Rubs - GI/Abdominal Exam GI & Abdominal Exam: Normal Bowel Sounds - Extremities Exam Extremities Exam: absent: Calf Tenderness - Back Exam Back Exam: absent: CVA tenderness (L), CVA tenderness (R) - Neurological Exam Neurological Exam: Alert Assessment and Plan (1) ESRD (end stage renal disease) on dialysis Assessment & Plan: Acute on chronic kidney disease serum creatinine has gone up to 3.0 Creatinine clearance 24 hours 29 And protein 543 mg Because the patient is medication some urine with over 1000 mL last 24 hours and serum creatinine is holding around 3 so the plan Hold off dialysis until father order and we are assessing his kidney function almost daily. Continue EPO for the anemia subcutaneous Continue Venofer intravenously for additional 3 doses Status: Acute
--- NOTE | 2017-02-11 20:03 | CP.PCM.PN ---
Subjective - Date & Time of Evaluation Date of Evaluation: 02/11/17 Time of Evaluation: 16:00 - Subjective Subjective: Pt seen and examined. Claimed to be doing great. Objective - Vital Signs/Intake and Output Vital Signs (last 24 hours): Temp Pulse Resp BP Pulse Ox 98.2 F 77 18 161/76 H 99 02/11/17 09:34 02/11/17 09:34 02/11/17 09:34 02/11/17 09:34 02/11/17 09:34 - Medications Medications: Current Medications Aspirin (Aspirin Chewable) 81 mg PO DAILY [facility] Last Admin: 02/11/17 08:30 Dose: 81 mg Atorvastatin Calcium (Lipitor) 80 mg PO HS [facility] Last Admin: 02/10/17 21:22 Dose: 80 mg Cadexomer Iodine (Iodosorb) 1 applic TOP 0600 [facility] Last Admin: 02/11/17 07:14 Dose: 1 applic Carvedilol (Coreg) 25 mg PO Q12 [facility] Last Admin: 02/11/17 08:30 Dose: 25 mg Clopidogrel Bisulfate (Plavix) 75 mg PO DAILY [facility] Last Admin: 02/11/17 08:30 Dose: 75 mg Ezetimibe (Zetia) 10 mg PO DAILY [facility] Last Admin: 02/11/17 08:30 Dose: 10 mg Epoetin Panchito (Procrit) 8,000 unit [facility] Furosemide (Lasix) 80 mg PO F [facility] Last Admin: 02/11/17 08:30 Dose: 80 mg Guaifenesin/Dextromethorphan (Robitussin Dm) 10 ml PO Q4 PRN PRN Reason: Cough Heparin Sodium (Porcine) (Heparin) 5,000 units SC Q12 [facility] PRN Reason: Protocol Last Admin: 02/11/17 08:29 Dose: 5,000 units Iron Sucrose 100 mg/ Sodium (Chloride) 105 mls @ 105 mls/hr IVPB DAILY [facility] Stop: 02/13/17 09:59 Last Admin: 02/11/17 17:39 Dose: 105 mls/hr Nystatin (Mycostatin Oint) 1 applic TOP TID [facility] Last Admin: 02/11/17 17:31 Dose: 1 oin Oxandrolone (Oxandrin) 5 mg PO BID [facility] Last Admin: 02/11/17 17:33 Dose: 5 mg Pantoprazole Sodium (Protonix Ec Tab) 40 mg PO DAILY [facility] Last Admin: 02/11/17 08:30 Dose: 40 mg Sevelamer Carbonate (Renvela) 0.8 gm PO TID [facility] Last Admin: 02/11/17 17:35 Dose: 0.8 gm Tamsulosin HCl (Flomax) 0.4 mg PO BID [facility] Last Admin: 02/11/17 17:35 Dose: 0.4 mg Vitamin B Complex/Vit C/Folic Acid (Nephro-Chris) 1 tab PO DAILY [facility] Last Admin: 02/11/17 08:30 Dose: 1 tab - Labs Labs: 02/06/17 06:00 02/11/17 09:00 - Constitutional Appears: No Acute Distress - Head Exam Head Exam: ATRAUMATIC - Eye Exam Eye Exam: absent: Scleral icterus - ENT Exam ENT Exam: Mucous Membranes Moist - Neck Exam Neck Exam: absent: Meningismus - Respiratory Exam Respiratory Exam: absent: Rhonchi, Wheezes, Respiratory Distress - Cardiovascular Exam Cardiovascular Exam: REGULAR RHYTHM, +S1, +S2 - GI/Abdominal Exam GI & Abdominal Exam: Soft. absent: Tenderness - Rectal Exam Rectal Exam: Deferred - Neurological Exam Neurological Exam: Alert, Oriented x3 - Psychiatric Exam Psychiatric exam: Normal Affect - Skin Skin Exam: Dry, Intact Assessment and Plan (1) Metabolic encephalopathy Status: Resolved (2) Diabetes mellitus type 1 Status: Acute (3) ESRD (end stage renal disease) on dialysis Status: Acute (4) Decubitus skin ulcer Status: Acute (5) Afib Status: Acute (6) DVT prophylaxis Status: Acute - Assessment and Plan (Free Text) Assessment: 66 yo male with history of IDDM with Insulin pump , CAD, HTN was transferred from [facility] to Acute rehab for physicl therapy. He was admitted in [facility] for DKA with coma, Metabolic Encephalopathy, Acute Respiratory Failure, ARF requiring dialysis and Sepsis. (1) Metabolic encephalopathy improved - pt is alert, oriented continue PT and OT (2) Diabetes mellitus type 1 patient on insulin pump - manages his DM by self adjusting his basal and bolus insulin requirements Blood Glucose not controlled endocrinology consult with Dr Singleton (3) ESRD (end stage renal disease) on dialysis renal function improving dialysis held by Dr Ch and continue to monitor renal function (4) Chronic Anemia secondary to renal failure continue IV Venofer for additional 3 bags and SC Procrit 8000 units every MWF as per sports book server (5) Decubitus skin ulcer, right Heel DTI ( POA) wound care consult Podiatry consult (6) Atrial Fibrillation episode rate controlled and presently in sinus continue Carvedilol. Heparin 5000 units SC q 12hrs as per cardiology consult, AFib was only verbally reported and may not need long period of anticoagulation Dr. Robins, on cardiology consult ECHO ; normal wall motion, normal EF cont ASA (7) Urinary Retention, improved Dr Oliveira, urologist, on consult retested pt and noted residual to be only 50 ml cont Flomax (8) DVT prophylaxis continue Heparin 5000 units SC q 12hrs
[2017-02-11] MEDS: Epoetin Alfa 20000 UNIT/ML Inj SC SCH (21:30)
--- NOTE | 2017-02-12 01:42 | PN ---
DATE: ENDO FOLLOWUP NOTE LOCATION: In room 626 rehab unit. This is a 66-year-old male with recent uncontrolled type 1 insulin dependant diabetes now being followed closely for metabolic management. He has been able to resume the use of his Medtronic insulin pump in the hospital, which allows the patient to have continuous insulin infusion and also be able to self-address his bolus insulin injections for each meal at noted. His glycemic levels are fluctuating and today's glucose values have ranged from 207 to 288 mg/dL. His latest chemistry showed the BUN of 33, sodium 138, potassium 3.8, chloride 103, CO2 of 26, glucose 227 and creatinine 3.0. So at this time, we will continue the patient Medtronic insulin pump, which allows him to have basal and bolus insulin infusion as noted. Nephrology specialist also has withheld and stopped his hemodialysis sessions for now and observe his clinical and biochemical response thereof. We will obtain serial chemistries and supplement accordingly as needed. We will follow. Payton Singleton MD
[2017-02-12] MEDS: Iodine 0.9% GEL TOP SCH (06:52)
[2017-02-12 06:59] LABS: CALCIUM 8.3 mg/dL (8.4-10.2); POTASSIUM 3.8 MMOL/L (3.6-5.0)
[2017-02-12] MEDS: Multivitamin Vitamin B Complex (Nephro-Vite) Tab PO SCH (08:43)
[2017-02-12] MEDS: Pantoprazole 40 mg EC Tab PO SCH (08:44)
[2017-02-12] MEDS: Nystatin Ointment TOP SCH ×3 (08:45→17:18)
[2017-02-12] MEDS: Sevelamer Carb 0.8 gm/Packet PO SCH ×3 (08:45→17:18)
--- NOTE | 2017-02-12 11:39 | CP.PCM.PN ---
Subjective - Date & Time of Evaluation Date of Evaluation: 02/12/17 Time of Evaluation: 11:38 - Subjective Subjective: Patient seen in PT ambulating well, still with right foot drop, compensating gait has right lateral heel/foot wound. I will order Silvadene bid to area no sulfa allergies 300cc urinary output will likely liberalize his independence in the room with walker Objective - Vital Signs/Intake and Output Vital Signs (last 24 hours): Temp Pulse Resp BP Pulse Ox 97.7 F 74 20 148/71 99 02/12/17 08:40 02/12/17 08:44 02/12/17 08:40 02/12/17 08:44 02/12/17 08:40 - Medications Medications: Current Medications Aspirin (Aspirin Chewable) 81 mg PO DAILY [facility] Last Admin: 02/12/17 08:43 Dose: 81 mg Atorvastatin Calcium (Lipitor) 80 mg PO HS [facility] Last Admin: 02/11/17 21:29 Dose: 80 mg Cadexomer Iodine (Iodosorb) 1 applic TOP 0600 [facility] Last Admin: 02/12/17 06:52 Dose: 1 applic Carvedilol (Coreg) 25 mg PO Q12 [facility] Last Admin: 02/12/17 08:44 Dose: 25 mg Clopidogrel Bisulfate (Plavix) 75 mg PO DAILY [facility] Last Admin: 02/12/17 08:44 Dose: 75 mg Ezetimibe (Zetia) 10 mg PO DAILY [facility] Last Admin: 02/12/17 08:43 Dose: 10 mg Epoetin Panchito (Procrit) 8,000 unit SC F [facility] Last Admin: 02/11/17 21:30 Dose: 8,000 unit Furosemide (Lasix) 80 mg PO F [facility] Last Admin: 02/11/17 08:30 Dose: 80 mg Guaifenesin/Dextromethorphan (Robitussin Dm) 10 ml PO Q4 PRN PRN Reason: Cough Heparin Sodium (Porcine) (Heparin) 5,000 units SC Q12 [facility] PRN Reason: Protocol Last Admin: 02/12/17 08:46 Dose: 5,000 units Iron Sucrose 100 mg/ Sodium (Chloride) 105 mls @ 105 mls/hr IVPB DAILY [facility] Stop: 02/13/17 09:59 Last Admin: 02/12/17 09:50 Dose: 105 mls/hr Nystatin (Mycostatin Oint) 1 applic TOP TID [facility] Last Admin: 02/12/17 08:45 Dose: 1 oin Oxandrolone (Oxandrin) 5 mg PO BID [facility] Last Admin: 02/12/17 08:48 Dose: 5 mg Pantoprazole Sodium (Protonix Ec Tab) 40 mg PO DAILY [facility] Last Admin: 02/12/17 08:44 Dose: 40 mg Sevelamer Carbonate (Renvela) 0.8 gm PO TID [facility] Last Admin: 02/12/17 08:45 Dose: 0.8 gm Tamsulosin HCl (Flomax) 0.4 mg PO BID [facility] Last Admin: 02/12/17 08:46 Dose: 0.4 mg Vitamin B Complex/Vit C/Folic Acid (Nephro-Chris) 1 tab PO DAILY [facility] Last Admin: 02/12/17 08:43 Dose: 1 tab - Labs Labs: 02/06/17 06:00 02/12/17 05:45
[2017-02-12] MEDS: Silver Sulfadiazine 1% Cream (20 gm) TOP SCH ×2 (12:29→17:19)
--- NOTE | 2017-02-12 15:16 | CP.PCM.PN ---
Subjective - Date & Time of Evaluation Date of Evaluation: 02/12/17 Time of Evaluation: 03:00 - Subjective Subjective: Feels better Pt reports that he is making more urine than before Objective - Vital Signs/Intake and Output Vital Signs (last 24 hours): Temp Pulse Resp BP Pulse Ox 97.7 F 74 20 148/71 99 02/12/17 08:40 02/12/17 08:44 02/12/17 08:40 02/12/17 08:44 02/12/17 08:40 - Medications Medications: Current Medications Aspirin (Aspirin Chewable) 81 mg PO DAILY [facility] Last Admin: 02/12/17 08:43 Dose: 81 mg Atorvastatin Calcium (Lipitor) 80 mg PO HS [facility] Last Admin: 02/11/17 21:29 Dose: 80 mg Cadexomer Iodine (Iodosorb) 1 applic TOP 0600 [facility] Last Admin: 02/12/17 06:52 Dose: 1 applic Carvedilol (Coreg) 25 mg PO Q12 [facility] Last Admin: 02/12/17 08:44 Dose: 25 mg Clopidogrel Bisulfate (Plavix) 75 mg PO DAILY [facility] Last Admin: 02/12/17 08:44 Dose: 75 mg Ezetimibe (Zetia) 10 mg PO DAILY [facility] Last Admin: 02/12/17 08:43 Dose: 10 mg Epoetin Panchito (Procrit) 8,000 unit SC F [facility] Last Admin: 02/11/17 21:30 Dose: 8,000 unit Furosemide (Lasix) 80 mg PO F [facility] Last Admin: 02/11/17 08:30 Dose: 80 mg Guaifenesin/Dextromethorphan (Robitussin Dm) 10 ml PO Q4 PRN PRN Reason: Cough Heparin Sodium (Porcine) (Heparin) 5,000 units SC Q12 [facility] PRN Reason: Protocol Last Admin: 02/12/17 08:46 Dose: 5,000 units Iron Sucrose 100 mg/ Sodium (Chloride) 105 mls @ 105 mls/hr IVPB DAILY [facility] Stop: 02/13/17 09:59 Last Admin: 02/12/17 09:50 Dose: 105 mls/hr Nystatin (Mycostatin Oint) 1 applic TOP TID [facility] Last Admin: 02/12/17 12:30 Dose: 1 oin Oxandrolone (Oxandrin) 5 mg PO BID [facility] Last Admin: 02/12/17 08:48 Dose: 5 mg Pantoprazole Sodium (Protonix Ec Tab) 40 mg PO DAILY [facility] Last Admin: 02/12/17 08:44 Dose: 40 mg Sevelamer Carbonate (Renvela) 0.8 gm PO TID [facility] Last Admin: 02/12/17 12:30 Dose: 0.8 gm Silver Sulfadiazine (Silvadene 1% 20 Gm) 0 ea TOP BID [facility] Last Admin: 02/12/17 12:29 Dose: 1 applic Tamsulosin HCl (Flomax) 0.4 mg PO BID [facility] Last Admin: 02/12/17 08:46 Dose: 0.4 mg Vitamin B Complex/Vit C/Folic Acid (Nephro-Chris) 1 tab PO DAILY [facility] Last Admin: 02/12/17 08:43 Dose: 1 tab - Labs Labs: 02/06/17 06:00 02/12/17 05:45 - Respiratory Exam Additional comments: Lungs clear - Cardiovascular Exam Cardiovascular Exam: REGULAR RHYTHM - Extremities Exam Additional comments: Bipedal edema Rt > Lt Assessment and Plan - Assessment and Plan (Free Text) Assessment: TRACEY renal function is improving. Creat. is stable @ 2.8 DM, Anemia Plan: Continue to hold dialysis Monitor Hb
--- NOTE | 2017-02-12 22:08 | PN ---
ENDO FOLLOWUP NOTE LOCATION: In room #626. SUBJECTIVE: This is a 66-year-old male with recent uncontrolled type-1 insulin dependent diabetes, now being followed closely for metabolic management. His glycemic values are fluctuating as his oral intake is also quite variable at this time. His latest glucose levels have ranged from 213 to 258 and 303 mg/dL. The latest chemistry showed a BUN of 38, sodium 140, potassium 3.8, chloride 104, CO2 of 23, glucose 205 and creatinine 2.8. So at this time, we will once again reinforce with the patient the imperative need to optimize his metabolic control especially with the fact that his hemodialysis has been held off and we really have to achieve titer glycemic control to delay the further microvascular complications of diabetic nephropathy as noted. We will once again insist to the patient go up and adjust his basal and bolus insulin dose regimen as undertaken. He has been able to resume the use of his Medtronic insulin pump and has been allowed to self adjust his own basal and bolus insulin regimen. We will follow and advise accordingly. Payton Singleton MD
[2017-02-13] MEDS: Iodine 0.9% GEL TOP SCH (06:20)
[2017-02-13 06:39] LABS: HEMATOCRIT 26.8 % (35.0-51.0); MEAN CELL VOLUME 92.2 fl (80.0-94.0); MEAN CORPUSCULAR HEMOGLOBIN 30.1 pg (27.0-31.0); MEAN CORPUSCULAR HGB CONC 32.6 g/dL (33.0-37.0); RED CELL DISTRIBUTION WIDTH 17.3 % (11.5-14.5)
[2017-02-13 06:53] LABS: CALCIUM 8.4 mg/dL (8.4-10.2); POTASSIUM 4.4 MMOL/L (3.6-5.0)
[2017-02-13] MEDS: Nystatin Ointment TOP SCH ×3 (08:37→17:13)
[2017-02-13] MEDS: Silver Sulfadiazine 1% Cream (20 gm) TOP SCH ×2 (08:37→17:11)
[2017-02-13] MEDS: Pantoprazole 40 mg EC Tab PO SCH (08:38)
[2017-02-13] MEDS: Sevelamer Carb 0.8 gm/Packet PO SCH ×3 (08:39→17:11)
[2017-02-13] MEDS: Multivitamin Vitamin B Complex (Nephro-Vite) Tab PO SCH (08:39)
[2017-02-13] MEDS ORDERED: Insulin Lispro (humaLOG) 100 Units/ml Inj SC ONE ×2 (09:13→09:30)
--- NOTE | 2017-02-13 13:02 | CP.PCM.PN ---
Subjective - Date & Time of Evaluation Date of Evaluation: 02/13/17 Time of Evaluation: 12:45 - Subjective Subjective: Feeling better Objective - Vital Signs/Intake and Output Vital Signs (last 24 hours): Temp Pulse Resp BP Pulse Ox 98.3 F 90 19 157/71 H 96 02/13/17 10:00 02/13/17 10:00 02/13/17 10:00 02/13/17 10:00 02/13/17 10:00 - Medications Medications: Current Medications Aspirin (Aspirin Chewable) [address] [facility] Last Admin: 02/13/17 08:38 Dose: 81 mg Atorvastatin Calcium (Lipitor) [address] [facility] Last Admin: 02/12/17 21:00 Dose: 80 mg Cadexomer Iodine (Iodosorb) [address] [facility] Last Admin: 02/13/17 06:20 Dose: 1 applic Carvedilol (Coreg) [address] [facility] Last Admin: 02/13/17 08:38 Dose: 25 mg Clopidogrel Bisulfate (Plavix) [address] [facility] Last Admin: 02/13/17 08:39 Dose: 75 mg Ezetimibe (Zetia) [address] [facility] Last Admin: 02/13/17 08:38 Dose: 10 mg Epoetin Panchito (Procrit) 8,000 unit SC [facility] Last Admin: 02/11/17 21:30 Dose: 8,000 unit Furosemide (Lasix) [address] [facility] Last Admin: 02/11/17 08:30 Dose: 80 mg Guaifenesin/Dextromethorphan (Robitussin Dm) 10 ml PO Q4 PRN PRN Reason: Cough Heparin Sodium (Porcine) (Heparin) 5,[address] [facility] PRN Reason: Protocol Last Admin: 02/13/17 08:39 Dose: 5,000 units Nystatin (Mycostatin Oint) [address] [facility] Last Admin: 02/13/17 12:22 Dose: 1 oin Oxandrolone (Oxandrin) [address] [facility] Last Admin: 02/13/17 08:37 Dose: 5 mg Pantoprazole Sodium (Protonix Ec Tab) [address] [facility] Last Admin: 02/13/17 08:38 Dose: 40 mg Sevelamer Carbonate (Renvela) 0.[address] [facility] Last Admin: 02/13/17 12:22 Dose: 0.8 gm Silver Sulfadiazine (Silvadene 1% 20 Gm) [address] [facility] Last Admin: 02/13/17 08:37 Dose: 1 applic Tamsulosin HCl (Flomax) 0.[address] [facility] Last Admin: 02/13/17 08:39 Dose: 0.4 mg Vitamin B Complex/Vit C/Folic Acid (Nephro-Chris) [address] [facility] Last Admin: 02/13/17 08:39 Dose: 1 tab - Labs Labs: 02/13/17 05:30 02/13/17 05:30 - Respiratory Exam Additional comments: Lungs clear - Cardiovascular Exam Cardiovascular Exam: REGULAR RHYTHM Assessment and Plan - Assessment and Plan (Free Text) Assessment: TRACEY improving Creat decreased to 2.5 IDDM HTN Plan: Continue to monitor renal function Dialysis on hold
--- NOTE | 2017-02-13 15:12 | PN ---
ENDOCRINOLOGY FOLLOWUP NOTE LOCATION: Room #626. SUBJECTIVE: This is a 66-year-old male with recent uncontrolled type 1 insulin-dependent diabetes with marked hyperglycemic accelerations overnight and glucose values ranging from 447 to 448 and over 500 mg/dL. His latest chemistry showed a BUN of 46, sodium 139, potassium 4.4, chloride 103, CO2 of 20, creatinine 2.5 and glucose 460, so at this time, we will give the patient actually a stat dose of Humalog given as 20 units subcu at 8 a.m. daily only for the first dose tonight. We will also continue the [employer] insulin pump which the patient is actually ongoingly using, but apparently, there was a malfunction of the aforementioned causing him to not actually receive any kind of long-acting insulin at this time. We will follow and advise accordingly. Payton Singleton MD
[2017-02-13] MEDS: guaiFENesin DM 200 mg-20 mg/10 ml UD PO PRN (22:04)
[2017-02-14] MEDS: Iodine 0.9% GEL TOP SCH (05:28)
[2017-02-14] MEDS: guaiFENesin DM 200 mg-20 mg/10 ml UD PO PRN ×2 (05:40→11:45)
--- NOTE | 2017-02-14 07:41 | CP.PCM.PN ---
Subjective - Date & Time of Evaluation Date of Evaluation: 02/14/17 Time of Evaluation: 07:38 - Subjective Subjective: 66 y/o IDDM male seen at bedside for popped R heel blister. Patient is resting comfortably in his chair in NAD. Pt states he will be going home on Tuesday and wants to know who he can follow up with outpatient for routine foot care. Pt denies any F/C/N/V/SOB. Pt is not experiencing any pain in the foot at this time. Objective - Vital Signs/Intake and Output Vital Signs (last 24 hours): Temp Pulse Resp BP Pulse Ox 98.1 F 65 20 150/72 100 02/13/17 20:28 02/13/17 20:32 02/13/17 20:28 02/13/17 20:32 02/13/17 20:28 - Medications Medications: Current Medications Aspirin (Aspirin Chewable) 81 mg PO DAILY [facility] Last Admin: 02/13/17 08:38 Dose: 81 mg Atorvastatin Calcium (Lipitor) 80 mg PO HS [facility] Last Admin: 02/13/17 21:26 Dose: 80 mg Cadexomer Iodine (Iodosorb) 1 applic TOP 0600 [facility] Last Admin: 02/14/17 05:28 Dose: 1 applic Carvedilol (Coreg) 25 mg PO Q12 [facility] Last Admin: 02/13/17 20:32 Dose: 25 mg Clopidogrel Bisulfate (Plavix) 75 mg PO DAILY [facility] Last Admin: 02/13/17 08:39 Dose: 75 mg Ezetimibe (Zetia) 10 mg PO DAILY [facility] Last Admin: 02/13/17 08:38 Dose: 10 mg Epoetin Panchito (Procrit) 8,000 unit SC F [facility] Last Admin: 02/11/17 21:30 Dose: 8,000 unit Furosemide (Lasix) 80 mg PO F [facility] Last Admin: 02/11/17 08:30 Dose: 80 mg Guaifenesin/Dextromethorphan (Robitussin Dm) 10 ml PO Q4 PRN PRN Reason: Cough Last Admin: 02/14/17 05:40 Dose: 10 ml Heparin Sodium (Porcine) (Heparin) 5,000 units SC Q12 [facility] PRN Reason: Protocol Last Admin: 02/13/17 20:32 Dose: 5,000 units Nystatin (Mycostatin Oint) 1 applic TOP TID [facility] Last Admin: 02/13/17 17:13 Dose: 1 oin Oxandrolone (Oxandrin) 5 mg PO BID [facility] Last Admin: 02/13/17 17:13 Dose: 5 mg Pantoprazole Sodium (Protonix Ec Tab) 40 mg PO DAILY [facility] Last Admin: 02/13/17 08:38 Dose: 40 mg Sevelamer Carbonate (Renvela) 0.8 gm PO TID [facility] Last Admin: 02/13/17 17:11 Dose: 0.8 gm Silver Sulfadiazine (Silvadene 1% 20 Gm) 0 ea TOP BID [facility] Last Admin: 02/13/17 17:11 Dose: 1 applic Tamsulosin HCl (Flomax) 0.4 mg PO BID [facility] Last Admin: 02/13/17 17:13 Dose: 0.4 mg Vitamin B Complex/Vit C/Folic Acid (Nephro-Chris) 1 tab PO DAILY [facility] Last Admin: 02/13/17 08:39 Dose: 1 tab - Labs Labs: 02/13/17 05:30 02/13/17 05:30 - Constitutional Appears: Well, Non-toxic, No Acute Distress - Extremities Exam Additional comments: RLE focused examination: Vasc: DP/PT pulses palpable 2/4. Temperature gradient warm to cool. CFT < 3 sec to all digits. No pedal edema Derm: 3.5cm x 2.5cm x superficial blister noted to heel. Base of blister reveals healthy pink superficial tissue. No sanguinous drainage noted on previous dressing. No purulence, no malodor, no fluctuance, no undermining, no underlying ulceration, no tunneling, no erythema, no cellulitic changes. No clinical signs of infection. Neuro: Protective sensation grossly intact Ortho: No tenderness upon palpation of R heel blister - Neurological Exam Neurological Exam: Alert, Awake, Oriented x3 - Psychiatric Exam Psychiatric exam: Normal Affect Assessment and Plan - Assessment and Plan (Free Text) Assessment: 66 y/o IDDM male with R heel pressure blister Plan: Pt seen and chart evaluated Discussed plan in detail with attending Dr. Weldon Chart, labs and vitals reviewed- afebrile, last WBC 10.0 Cleansed R heel blister with saline and 4x4 gauze Applied Silvadene and DSD to R foot Pt instructed to continue to wear heel protective boots to offload the area at all times non-weight bearing Nursing orders placed to change dressings daily with Tanner and JESIKA Upon D/C, pt will F/U with Dr. Weldon as outpatient Podiatry will continue to follow while in house
[2017-02-14] MEDS: Multivitamin Vitamin B Complex (Nephro-Vite) Tab PO SCH (09:21)
[2017-02-14] MEDS: Nystatin Ointment TOP SCH ×3 (09:21→17:19)
[2017-02-14] MEDS: Sevelamer Carb 0.8 gm/Packet PO SCH ×3 (09:22→17:19)
[2017-02-14] MEDS: Silver Sulfadiazine 1% Cream (20 gm) TOP SCH ×2 (09:22→17:20)
[2017-02-14] MEDS: Epoetin Alfa 20000 UNIT/ML Inj SC SCH (11:38)
[2017-02-14] MEDS: Pantoprazole 40 mg EC Tab PO SCH (11:38)
--- NOTE | 2017-02-14 11:42 | CP.PCM.PN ---
Subjective - Date & Time of Evaluation Date of Evaluation: 02/14/17 Time of Evaluation: 09:30 - Subjective Subjective: Patient seen and examined by myself. Patient states he is doing well and continuing to regain strength. All of the patient's questions were answered. It was explained to him that the heparin sq injections were for dvt prophylaxis and will be discontinued upon discharge. He was also concerned about wound care upon discharge to his foot blister and sacral wound; I assured him that he would have home care f/u upon discharge and podiatry follow up is ongoing during his stay here. He has no other complaints. Objective - Vital Signs/Intake and Output Vital Signs (last 24 hours): Temp Pulse Resp BP Pulse Ox 97.7 F 69 20 168/77 H 99 02/14/17 07:49 02/14/17 09:38 02/14/17 07:49 02/14/17 09:38 02/14/17 07:49 - Medications Medications: Current Medications Aspirin (Aspirin Chewable) 81 mg PO DAILY [facility] Last Admin: 02/14/17 09:19 Dose: 81 mg Atorvastatin Calcium (Lipitor) 80 mg PO HS [facility] Last Admin: 02/13/17 21:26 Dose: 80 mg Cadexomer Iodine (Iodosorb) 1 applic TOP 0600 [facility] Last Admin: 02/14/17 05:28 Dose: 1 applic Carvedilol (Coreg) 25 mg PO Q12 [facility] Last Admin: 02/14/17 09:20 Dose: 25 mg Clopidogrel Bisulfate (Plavix) 75 mg PO DAILY [facility] Last Admin: 02/14/17 09:21 Dose: 75 mg Ezetimibe (Zetia) 10 mg PO DAILY [facility] Last Admin: 02/14/17 09:23 Dose: 10 mg Epoetin Panchito (Procrit) 8,000 unit SC MWF [facility] Last Admin: 02/11/17 21:30 Dose: 8,000 unit Furosemide (Lasix) 80 mg PO F [facility] Last Admin: 02/14/17 09:21 Dose: 80 mg Guaifenesin/Dextromethorphan (Robitussin Dm) 10 ml PO Q4 PRN PRN Reason: Cough Last Admin: 02/14/17 05:40 Dose: 10 ml Heparin Sodium (Porcine) (Heparin) 5,000 units SC Q12 [facility] PRN Reason: Protocol Last Admin: 02/14/17 09:20 Dose: 5,000 units Nystatin (Mycostatin Oint) 1 applic TOP TID [facility] Last Admin: 02/14/17 09:21 Dose: 1 oin Oxandrolone (Oxandrin) 5 mg PO BID [facility] Last Admin: 02/14/17 09:25 Dose: 5 mg Pantoprazole Sodium (Protonix Ec Tab) 40 mg PO DAILY [facility] Last Admin: 02/13/17 08:38 Dose: 40 mg Sevelamer Carbonate (Renvela) 0.8 gm PO TID [facility] Last Admin: 02/14/17 09:22 Dose: 0.8 gm Silver Sulfadiazine (Silvadene 1% 20 Gm) 0 ea TOP BID [facility] Last Admin: 02/14/17 09:22 Dose: 1 applic Tamsulosin HCl (Flomax) 0.4 mg PO BID [facility] Last Admin: 02/14/17 09:20 Dose: 0.4 mg Vitamin B Complex/Vit C/Folic Acid (Nephro-Chris) 1 tab PO DAILY [facility] Last Admin: 02/14/17 09:21 Dose: 1 tab - Labs Labs: 02/13/17 05:30 02/13/17 05:30 - Constitutional Appears: Well, No Acute Distress - Head Exam Head Exam: ATRAUMATIC, NORMAL INSPECTION, NORMOCEPHALIC - Neck Exam Neck Exam: Full ROM, Normal Inspection. absent: Lymphadenopathy - Respiratory Exam Respiratory Exam: Clear to Ausculation Bilateral, NORMAL BREATHING PATTERN - Cardiovascular Exam Cardiovascular Exam: REGULAR RHYTHM, +S1, +S2. absent: Murmur - GI/Abdominal Exam GI & Abdominal Exam: Soft, Normal Bowel Sounds. absent: Tenderness - Rectal Exam Rectal Exam: NORMAL INSPECTION - Extremities Exam Extremities Exam: Full ROM, Normal Capillary Refill, Normal Inspection. absent : Joint Swelling, Pedal Edema - Back Exam Back Exam: NORMAL INSPECTION - Neurological Exam Neurological Exam: Alert, Awake, CN II-XII Intact, Normal Gait, Oriented x3 - Skin Skin Exam: Dry, Normal Color, Warm Additional comments: Sacral wound, right heel wound dressing c/d/i Assessment and Plan (1) Metabolic encephalopathy Status: Resolved (2) DVT prophylaxis Status: Acute (3) Diabetes mellitus type 1 Status: Acute (4) ESRD (end stage renal disease) on dialysis Status: Acute (5) Atrial fibrillation Status: Acute (6) Decubitus skin ulcer Status: Acute - Assessment and Plan (Free Text) Assessment: This is a 66 yo male with history of IDDM with Insulin pump , CAD, HTN was transferred from [facility] [place] Acute rehab for physicl therapy. He was admitted in [facility] for DKA with coma, Metabolic Encephalopathy, Acute Respiratory Failure, ARF requiring dialysis and Sepsis. (1) Metabolic encephalopathy improved - pt is alert, oriented continue PT and OT (2) Diabetes mellitus type 1 patient on insulin pump - manages his DM by self adjusting his basal and bolus insulin requirements Blood Glucose not controlled endocrinology consult with Dr Singleton (3) ESRD (end stage renal disease) on dialysis renal function continuing to improve dialysis held by Dr Ch and continue to monitor renal function (4) Chronic Anemia secondary to renal failure continue IV Venofer for additional 3 bags and SC Procrit 8000 units every MWF as per survey research associate (5) Decubitus skin ulcer, right Heel DTI ( POA) wound care consult Podiatry consult (6) Atrial Fibrillation episode rate controlled and presently in sinus continue Carvedilol. Heparin 5000 units SC q 12hrs as per cardiology consult, AFib was only verbally reported and may not need long period of anticoagulation Dr. Robins, on cardiology consult ECHO ; normal wall motion, normal EF cont ASA (7) Urinary Retention Dr Oliveira, urologist, on consult Continuing to void well on his own cont Flomax (8) DVT prophylaxis continue Heparin 5000 units SC q 12hrs
--- NOTE | 2017-02-14 12:15 | CP.PCM.PN ---
Subjective - Date & Time of Evaluation Date of Evaluation: 02/14/17 Time of Evaluation: 12:13 - Subjective Subjective: Patient out of bed in the chair Feels good Appetite is good No nausea no vomiting Objective - Vital Signs/Intake and Output Vital Signs (last 24 hours): Temp Pulse Resp BP Pulse Ox 97.7 F 69 20 168/77 H 99 02/14/17 07:49 02/14/17 09:38 02/14/17 07:49 02/14/17 09:38 02/14/17 07:49 - Medications Medications: Current Medications Aspirin (Aspirin Chewable) 81 mg PO DAILY [facility] Last Admin: 02/14/17 09:19 Dose: 81 mg Atorvastatin Calcium (Lipitor) 80 mg PO HS [facility] Last Admin: 02/13/17 21:26 Dose: 80 mg Cadexomer Iodine (Iodosorb) 1 applic TOP 0600 [facility] Last Admin: 02/14/17 05:28 Dose: 1 applic Carvedilol (Coreg) 25 mg PO Q12 [facility] Last Admin: 02/14/17 09:20 Dose: 25 mg Clopidogrel Bisulfate (Plavix) 75 mg PO DAILY [facility] Last Admin: 02/14/17 09:21 Dose: 75 mg Ezetimibe (Zetia) 10 mg PO DAILY [facility] Last Admin: 02/14/17 09:23 Dose: 10 mg Epoetin Panchito (Procrit) 8,000 unit SC [facility] Last Admin: 02/14/17 11:38 Dose: 8,000 unit Furosemide (Lasix) 80 mg PO F [facility] Last Admin: 02/14/17 09:21 Dose: 80 mg Guaifenesin/Dextromethorphan (Robitussin Dm) 10 ml PO Q4 PRN PRN Reason: Cough Last Admin: 02/14/17 11:45 Dose: 10 ml Heparin Sodium (Porcine) (Heparin) 5,000 units SC Q12 [facility] PRN Reason: Protocol Last Admin: 02/14/17 09:20 Dose: 5,000 units Nystatin (Mycostatin Oint) 1 applic TOP TID [facility] Last Admin: 02/14/17 09:21 Dose: 1 oin Oxandrolone (Oxandrin) 5 mg PO BID [facility] Last Admin: 02/14/17 09:25 Dose: 5 mg Pantoprazole Sodium (Protonix Ec Tab) 40 mg PO DAILY [facility] Last Admin: 02/14/17 11:38 Dose: 40 mg Sevelamer Carbonate (Renvela) 0.8 gm PO TID [facility] Last Admin: 02/14/17 09:22 Dose: 0.8 gm Silver Sulfadiazine (Silvadene 1% 20 Gm) 0 ea TOP BID [facility] Last Admin: 02/14/17 09:22 Dose: 1 applic Tamsulosin HCl (Flomax) 0.4 mg PO BID [facility] Last Admin: 02/14/17 09:20 Dose: 0.4 mg Vitamin B Complex/Vit C/Folic Acid (Nephro-Chris) 1 tab PO DAILY [facility] Last Admin: 02/14/17 09:21 Dose: 1 tab - Labs Labs: 02/13/17 05:30 02/13/17 05:30 - Constitutional Appears: No Acute Distress - ENT Exam ENT Exam: Mucous Membranes Moist - Cardiovascular Exam Cardiovascular Exam: absent: JVD, Rubs - GI/Abdominal Exam GI & Abdominal Exam: Normal Bowel Sounds - Extremities Exam Extremities Exam: Calf Tenderness - Back Exam Back Exam: absent: CVA tenderness (L), CVA tenderness (R) - Neurological Exam Neurological Exam: Alert Assessment and Plan (1) ESRD (end stage renal disease) on dialysis Status: Acute (2) Acute kidney failure, unspecified Assessment & Plan: Acute kidney injury patient started on dialysis however he is off dialysis for approximately a week the last hemodialysis was last Tuesday Last serum creatinine 2.6 To repeat today And to keep monitoring kidney function We will add Lasix if he continued to have edema by tomorrow. 66 yo male with history of IDDM with Insulin pump , CAD, HTN was transferred from [facility] [place] to Acute rehab for physicl therapy. He was admitted in [facility] [place] for DKA with coma, Metabolic Encephalopathy, Acute Respiratory Failure, ARF requiring dialysis and Sepsis. (1) Metabolic encephalopathy improved - pt is alert, oriented continue PT and OT (2) Diabetes mellitus type 1 patient on insulin pump - manages his DM by self adjusting his basal and bolus insulin requirements Blood Glucose not controlled endocrinology consult with Dr Singleton Status: Acute
[2017-02-14 13:33] LABS: CALCIUM 8.7 mg/dL (8.4-10.2); POTASSIUM 3.9 MMOL/L (3.6-5.0)
--- NOTE | 2017-02-14 20:01 | PN ---
DATE: ENDOCRINOLOGY FOLLOWUP NOTE SUBJECTIVE: This is a 66-year-old male with recent uncontrolled type 1 insulin-dependent diabetes who developed hyperglycemic accelerations yesterday with glucose levels over 300 as noted, but since then improved clinically and metabolically as noted. His glucose levels overnight showed values ranging from 206 to 254 mg/dL. Latest chemistry showed a BUN of 46, sodium 141, potassium 3.9, chloride 105, CO2 22, glucose 238, and creatinine 2.3. His glucose level is now at 317 just before dinner tonight as noted. We will once again remind the patient to self-adjust his basal and bolus insulin regimen to optimize his metabolic control and to achieve glucose values below 140 on a day-to-day basis as noted. We will follow and advise accordingly. Payton Singleton MD
[2017-02-15] MEDS: Iodine 0.9% GEL TOP SCH (06:17)
[2017-02-15] MEDS: Nystatin Ointment TOP SCH ×3 (08:33→16:50)
[2017-02-15] MEDS: Multivitamin Vitamin B Complex (Nephro-Vite) Tab PO SCH (08:33)
[2017-02-15] MEDS: Silver Sulfadiazine 1% Cream (20 gm) TOP SCH ×2 (08:34→16:49)
[2017-02-15] MEDS: Pantoprazole 40 mg EC Tab PO SCH (08:34)
[2017-02-15] MEDS: guaiFENesin DM 200 mg-20 mg/10 ml UD PO PRN (08:34)
[2017-02-15] MEDS: Sevelamer Carb 0.8 gm/Packet PO SCH ×3 (08:34→16:50)
--- NOTE | 2017-02-15 09:01 | CP.PCM.PN ---
Subjective - Date & Time of Evaluation Date of Evaluation: 02/15/17 Time of Evaluation: 09:01 - Subjective Subjective: Podiatry Progress Note for Dr. Weldon 66 y/o IDDM male seen at bedside for popped R heel blister. Patient is resting comfortably in his chair in NAD. Pt states he will be going home on Tuesday and wants to know how to best care for this issue at home. Pt denies any F/C/N/V/ SOB. Pt is not experiencing any pain in the foot at this time. Objective - Vital Signs/Intake and Output Vital Signs (last 24 hours): Temp Pulse Resp BP Pulse Ox 97.3 F L 72 20 146/75 99 02/15/17 08:26 02/15/17 08:32 02/15/17 08:26 02/15/17 08:32 02/15/17 08:26 Intake and Output: 02/15/17 02/15/17 06:59 18:59 Output Total 300 Balance -300 - Medications Medications: Current Medications Aspirin (Aspirin Chewable) 81 mg PO DAILY [facility] Last Admin: 02/15/17 08:31 Dose: 81 mg Atorvastatin Calcium (Lipitor) 80 mg PO HS [facility] Last Admin: 02/14/17 21:34 Dose: 80 mg Cadexomer Iodine (Iodosorb) 1 applic TOP 0600 [facility] Last Admin: 02/15/17 06:17 Dose: 1 applic Carvedilol (Coreg) 25 mg PO Q12 [facility] Last Admin: 02/15/17 08:32 Dose: 25 mg Clopidogrel Bisulfate (Plavix) 75 mg PO DAILY [facility] Last Admin: 02/15/17 08:34 Dose: 75 mg Ezetimibe (Zetia) 10 mg PO DAILY [facility] Last Admin: 02/15/17 08:34 Dose: 10 mg Epoetin Panchito (Procrit) 8,000 unit SC MWF [facility] Last Admin: 02/14/17 11:38 Dose: 8,000 unit Furosemide (Lasix) 80 mg PO F [facility] Last Admin: 02/14/17 09:21 Dose: 80 mg Guaifenesin/Dextromethorphan (Robitussin Dm) 10 ml PO Q4 PRN PRN Reason: Cough Last Admin: 02/15/17 08:34 Dose: 10 ml Heparin Sodium (Porcine) (Heparin) 5,000 units SC Q12 [facility] PRN Reason: Protocol Last Admin: 02/15/17 08:32 Dose: 5,000 units Nystatin (Mycostatin Oint) 1 applic TOP TID [facility] Last Admin: 02/15/17 08:33 Dose: 1 oin Oxandrolone (Oxandrin) 5 mg PO BID [facility] Last Admin: 02/14/17 17:22 Dose: 5 mg Pantoprazole Sodium (Protonix Ec Tab) 40 mg PO DAILY [facility] Last Admin: 02/15/17 08:34 Dose: 40 mg Sevelamer Carbonate (Renvela) 0.8 gm PO TID [facility] Last Admin: 02/15/17 08:34 Dose: 0.8 gm Silver Sulfadiazine (Silvadene 1% 20 Gm) 0 ea TOP BID [facility] Last Admin: 02/15/17 08:34 Dose: 1 applic Tamsulosin HCl (Flomax) 0.4 mg PO BID [facility] Last Admin: 02/15/17 08:32 Dose: 0.4 mg Vitamin B Complex/Vit C/Folic Acid (Nephro-Chris) 1 tab PO DAILY [facility] Last Admin: 02/15/17 08:33 Dose: 1 tab - Labs Labs: 02/13/17 05:30 02/14/17 13:20 - Constitutional Appears: Well, Non-toxic, No Acute Distress - Extremities Exam Additional comments: RLE focused examination: Vasc: DP/PT pulses palpable 2/4. Temperature gradient warm to cool. CFT < 3 sec to all digits. No pedal edema Derm: 3.5cm x 2.5cm x superficial blister noted to heel. Base of blister reveals healthy pink superficial tissue. Proximal aspect of blister contains intact skin roof. No sanguinous drainage noted on previous dressing. No purulence, no malodor, no fluctuance, no undermining, no underlying ulceration, no tunneling, no erythema, no cellulitic changes. No clinical signs of infection. Neuro: Protective sensation grossly intact Ortho: No tenderness upon palpation of R heel blister - Neurological Exam Neurological Exam: Alert, Awake, Oriented x3 - Psychiatric Exam Psychiatric exam: Normal Affect, Normal Mood Assessment and Plan - Assessment and Plan (Free Text) Assessment: 66 y/o IDDM male with R heel pressure blister Plan: Pt seen and chart evaluated Discussed plan in detail with attending Dr. Weldon Chart, labs and vitals reviewed- afebrile, last WBC 10.0 Cleansed R heel blister with saline and 4x4 gauze Applied Silvadene, Optifoam and DSD to R foot Pt instructed to continue to wear heel protective boots to offload the area at all times non-weight bearing, both in bed and in his chair Nursing orders are in place to change dressings daily with Silvadene and DSD Upon D/C, pt will F/U with Dr. Weldon as outpatient in his office - placed in discharge plan Podiatry will continue to follow while in house
--- NOTE | 2017-02-15 10:30 | CP.PCM.PN ---
Subjective - Date & Time of Evaluation Date of Evaluation: 02/15/17 Time of Evaluation: 10:27 - Subjective Subjective: Patient is out of bed Patient is doing much better Receiving rehabilitation Objective - Vital Signs/Intake and Output Vital Signs (last 24 hours): Temp Pulse Resp BP Pulse Ox 97.3 F L 72 20 146/75 99 02/15/17 09:00 02/15/17 09:00 02/15/17 09:00 02/15/17 09:00 02/15/17 08:26 Intake and Output: 02/15/17 02/15/17 06:59 18:59 Intake Total 360 Output Total 300 Balance -300 360 - Medications Medications: Current Medications Aspirin (Aspirin Chewable) 81 mg PO DAILY [facility] Last Admin: 02/15/17 08:31 Dose: 81 mg Atorvastatin Calcium (Lipitor) 80 mg PO HS [facility] Last Admin: 02/14/17 21:34 Dose: 80 mg Cadexomer Iodine (Iodosorb) 1 applic TOP 0600 [facility] Last Admin: 02/15/17 06:17 Dose: 1 applic Carvedilol (Coreg) 25 mg PO Q12 [facility] Last Admin: 02/15/17 08:32 Dose: 25 mg Clopidogrel Bisulfate (Plavix) 75 mg PO DAILY [facility] Last Admin: 02/15/17 08:34 Dose: 75 mg Ezetimibe (Zetia) 10 mg PO DAILY [facility] Last Admin: 02/15/17 08:34 Dose: 10 mg Epoetin Panchito (Procrit) 8,000 unit SC [facility] Last Admin: 02/14/17 11:38 Dose: 8,000 unit Furosemide (Lasix) 80 mg PO F [facility] Last Admin: 02/14/17 09:21 Dose: 80 mg Guaifenesin/Dextromethorphan (Robitussin Dm) 10 ml PO Q4 PRN PRN Reason: Cough Last Admin: 02/15/17 08:34 Dose: 10 ml Heparin Sodium (Porcine) (Heparin) 5,000 units SC Q12 [facility] PRN Reason: Protocol Last Admin: 02/15/17 08:32 Dose: 5,000 units Nystatin (Mycostatin Oint) 1 applic TOP TID [facility] Last Admin: 02/15/17 08:33 Dose: 1 oin Oxandrolone (Oxandrin) 5 mg PO BID [facility] Last Admin: 02/14/17 17:22 Dose: 5 mg Pantoprazole Sodium (Protonix Ec Tab) 40 mg PO DAILY [facility] Last Admin: 02/15/17 08:34 Dose: 40 mg Sevelamer Carbonate (Renvela) 0.8 gm PO TID [facility] Last Admin: 02/15/17 08:34 Dose: 0.8 gm Silver Sulfadiazine (Silvadene 1% 20 Gm) 0 ea TOP BID [facility] Last Admin: 02/15/17 08:34 Dose: 1 applic Tamsulosin HCl (Flomax) 0.4 mg PO BID [facility] Last Admin: 02/15/17 08:32 Dose: 0.4 mg Vitamin B Complex/Vit C/Folic Acid (Nephro-Chris) 1 tab PO DAILY [facility] Last Admin: 02/15/17 08:33 Dose: 1 tab - Labs Labs: 02/13/17 05:30 02/14/17 13:20 - Constitutional Appears: No Acute Distress - ENT Exam ENT Exam: Mucous Membranes Moist - Respiratory Exam Respiratory Exam: NORMAL BREATHING PATTERN. absent: Chest Wall Tenderness - GI/Abdominal Exam GI & Abdominal Exam: Soft, Normal Bowel Sounds - Extremities Exam Extremities Exam: absent: Calf Tenderness - Back Exam Back Exam: absent: CVA tenderness (L), CVA tenderness (R) - Neurological Exam Neurological Exam: Alert Assessment and Plan (1) ESRD (end stage renal disease) on dialysis Status: Acute (2) Acute kidney failure, unspecified Assessment & Plan: Serum creatinine the knee continue to come down 2.3 the latest without dialysis for about a week Blood pressure better controlled Patient also off dialysis for approximately a week therefore discontinue dialysis and to remove the dialysis catheter patient appeared to be recovering from acute kidney injury that has [facility]. Anemia Patient receiving EPO and Venofer continue monitoring Status: Acute
--- NOTE | 2017-02-15 13:31 | PSY.TMCNF ---
Nursing - Vital Signs Vital Signs (Last 8 hours): Vital Signs 02/15/17 02/15/17 02/15/17 08:26 08:32 09:00 Temperature 97.3 F L 97.3 F L Pulse Rate 72 72 72 Respiratory 20 20 Rate Blood Pressure 146/75 146/75 146/75 O2 Sat by Pulse 99 Oximetry Pain: 0 - Precautions: Precautions: Fall Prevention, Pressure Ulcer - Medications/Other Issues Comment: Pt is at moderate nutritional risk. Goals: 1. Consume 75-100% at mealtimes(met, continue). 2. Maintain good glycemic control:GLU:70-180mg/dl( partially met, continue). Follow-up assessment due by 02/22/17. - Consults Comment: Dr. Ch (nephro) , Dr. saucedo (cardio), stockfeed miller seen on , Dr. Kamara (podiatry) seen 02/15 for R heel dressing alison, Dr. Singleton (endo), dr. [place] (physiatry), Dr. Sosa (psychology) - Wound Sacrum Wound Type: Other Wound Stage: Unstageable Wound Shape: Irregular Wound Length: 1.8 Wound Width: 1.8 Wound Bed Greatest Portion: Yellow (Slough) Periwound: Intact Wound Drainage Amount: Minimal Wound Drainage Description: slough Wound Drainage Odor: None/Absent Wound General Appearance: Reddened Wound Dressing Status: Dry & Intact Dressing Changed: Yes Wound Primary Dressing Type: Gauze Pads Wound Secondary Dressing Type: Tegaderm Comment: iodosorb , gauze and tegaderm Right Heel Wound Type: Other Wound Length: 2.4 Wound Width: 2.4 Tunneling: No Undermining: No Wound Bed Lesser Portion: Red (Granulation) Periwound: Intact Wound Drainage Amount: None Wound General Appearance: Blackened Wound Dressing Status: Dry & Intact Dressing Changed: Yes Wound Primary Dressing Type: Gauze Roll/Wrap Comment: silvadene with gauze and then wrapped with omid. noted to be improving. - Toileting Toileting: Supervision - Bladder Management Bladder Pattern: Normal Voiding Method: Toilet, Urinal Bladder Management: Supervision Frequency of Accidents: none - Bowel Management Bowel Pattern: Normal Comment: LBM : 02/14/2017 Bowel Management: Supervision Frequency of Accidents: none - Transfers Transfers: Supervision - ADL's ADL's: Supervision - Pain Management Comments: pt denies pain - Patient/Family Teaching Comments: medication education, wound care, safety, follow up appointments post d/c, diet - Goals/Time Frame Comments: FALL PREVENTION - Provider Provider: JENNIFER Holder Physical Therapy - Bed Mobility Bed Mobility: Supervision - Transfers Wheelchair to Mat: Supervision, Verbal Cues Sit to Stand: Supervision Comment: RW - Ambulation Distance (ft.): 300 Assistive Devices: Rolling Walker - Stair Negotiation Stairs: Level of Assistance: Supervision, Verbal Cues Stairs: Assistive Devices: Left Handrail, Right Handrail - Standing Balance Static Stand: Modified [place] with assistive device Dynamic Stand: Supervision, Contact Guard Assist - Pain Pain (assessed during therapy session): 0 Comment: n/a - Insight/Carryover Insight/Carryover: Good - Patient/Family Education Comment: energy conservation, safety, role of OT and rehab, pressure relief, fall prevention, adaptive equipment and DME training - Assessment/Plan Assessment: Pt continues to make progress during his stay at inpatient rehab however continues to require assistance at times to maintain balance with dynamic standing tasks and cueing for safety, including sidestepping when space is limited for turn with RW. Completed education with pt's significant other yesterday and verbalized understanding - Goals Timeframe: 7 days Goals: MOD I toilet txfers. MOD I toileting. S bathing. S shower txfers. LE dressing MOD I - Provider Therapist: Ernestina Ramon PT, DPT License Number: [id number] Occupational Therapy - Arousal/Attention/Orientation Level of Consciousness: Awake, Alert Patient Orientation: Person, Place, Time, Appropriate to Age, Appropriate to Situation - ADL/IADL Self Feeding: Independent Grooming: Independent Bathing-Upper Extremity: Supervision, Verbal Cues, Set-up Help Bathing-Lower Extremity: Minimal Assistance Dressing-Upper Extremity: Modified Independent Dressing-Lower Extremity: Supervision, Verbal Cues, Set-up Help - Sitting Balance Static Sitting: Independent without upper extremity support Dynamic Sitting: Reaches across midline, Reaches out of base of support, Reaches within base of support - Transfers Wheelchair to Bed Transfers: Supervision, Verbal Cues, Set-up Help Toilet Transfers: Supervision, Verbal Cues, Set-up Help Tub Transfers: Supervision, Verbal Cues, Set-up Help - Wheelchair Management Level of Assistance: Modified Independent Distance (ft.): 150 - Upper Extremity Status Right Upper Extremity Comment: ROM WFL MMT 4/5 Left Upper Extremity Comment: ROM WFL MMT 4/5 - Pain Pain (assessed during therapy session): 0 Comment: n/a - Insight/Carryover Insight/Carryover: Good - Patient/Family Education Comment: energy conservation, safety, role of OT and rehab, pressure relief, fall prevention, adaptive equipment and DME training - Assessment/Plan Assessment: Pt continues to make progress during his stay at inpatient rehab however continues to require assistance at times to maintain balance with dynamic standing tasks and cueing for safety, including sidestepping when space is limited for turn with RW. Completed education with pt's significant other yesterday and verbalized understanding - Goals Timeframe: 7 days Goals: MOD I toilet txfers. MOD I toileting. S bathing. S shower txfers. LE dressing MOD I - Provider Therapist: Amrita Acosta License Number: [id number] Speech Therapy - Consult Information Patient on Program: Yes Medical Diagnosis: metobalic encephalopathy Treatment Diagnosis: minimal-mild cognitive deficits - Assessment Memory Impairment: Mild - Plan Assessment: Pt continues to make progress during his stay at inpatient rehab however continues to require assistance at times to maintain balance with dynamic standing tasks and cueing for safety, including sidestepping when space is limited for turn with RW. Completed education with pt's significant other yesterday and verbalized understanding - Provider Therapist: Daria Morris License Number: [id number] Recreational Therapy - Participation Participation: Monitors His/Her Own Leisure Time - Attendance Attendance: Daily - Activities Leisure Activities: Television - Socialization Level of Socialization: Initiates/interacts freely with care givers and peer - Assessment Assessment/Plan: Pt continues to make progress during his stay at inpatient rehab however continues to require assistance at times to maintain balance with dynamic standing tasks and cueing for safety, including sidestepping when space is limited for turn with RW. Completed education with pt's significant other yesterday and verbalized understanding - Provider Therapist: Eduarda Heredia, [employer] #[id number] Nutrition - Current Diet Current Diet/ Supplement/ Feedings: Renal non-dialysis, heart healthy, moderate consistent CHO diet - Appetite Percent Meal Consumed: 75-100% - Comments Comments: medication education, wound care, safety, follow up appointments post d/c, diet - Assessment/Goals/Time Frame Assessment/Goals/Time Frame: Pt is at moderate nutritional risk. Goals: 1. Consume 75-100% at mealtimes(met, continue). 2. Maintain good glycemic control: GLU:70-180mg/dl(partially met, continue). Follow-up assessment due by 02/22/17. - Provider Provider: Carleen Leone MS, RD Case Management - Psychosocial Assessment Support Systems: Patient's spouse Dianne [phone] is very supportive and involved in care Psychological Interventions/Needs: Patient is alert and oriented x3, cooperative and motivated; Improved mood overall Discharge Concerns: Pt will possibly require outpatient H/D upon discharge Patient/Family Meeting: CM met with patient and rehab team, as well as with pt's consent Intervention/Goal/Outcome:: 1. Goal: Intermittent supervision overall. 2. Plan with spouse and VNS via [facility] and pending outpatient at [facility] (TBD by nephro). 3. DME needs. 4. continued caregiver training. 5. f/u appts. 6. continued emotional support. 7. Tentative discharge date: 02/18/2017 - Discharge Plan Discharge Plan: Home with significant other/family, Home with services Home Services: [facility] - Provider Provider: PIPER Villegas, HOT MAN License Number: [id number] Rehabilitation Plan - Treatment Plan Treatment Plan: Physical Therapy, Occupational Therapy, Dietary, Wound Care, Patient/Family Education - Discharge Plan Estimated Date of Discharge: 02/18/17 Discharge to: Home
--- NOTE | 2017-02-15 17:37 | CP.PCM.PN ---
Subjective - Date & Time of Evaluation Date of Evaluation: 02/15/17 Time of Evaluation: 17:36 - Subjective Subjective: Patient seen in room has an unstageable sacral ulcer with thin slough layer more on the left than right side. Periwound with minimal maceration/erythema no odor, minimal to no exudate. No significant depth at this point, but the slough makes it unstageable. Will change to Santyl Objective - Vital Signs/Intake and Output Vital Signs (last 24 hours): Temp Pulse Resp BP Pulse Ox 97.3 F L 72 20 146/75 99 02/15/17 09:00 02/15/17 09:00 02/15/17 09:00 02/15/17 09:00 02/15/17 08:26 Intake and Output: 02/15/17 02/15/17 06:59 18:59 Intake Total 360 Output Total 300 Balance -300 360 - Medications Medications: Current Medications Aspirin (Aspirin Chewable) 81 mg PO DAILY [facility] Last Admin: 02/15/17 08:31 Dose: 81 mg Atorvastatin Calcium (Lipitor) 80 mg PO HS [facility] Last Admin: 02/14/17 21:34 Dose: 80 mg Cadexomer Iodine (Iodosorb) 1 applic TOP 0600 [facility] Last Admin: 02/15/17 06:17 Dose: 1 applic Carvedilol (Coreg) 25 mg PO Q12 [facility] Last Admin: 02/15/17 08:32 Dose: 25 mg Clopidogrel Bisulfate (Plavix) 75 mg PO DAILY [facility] Last Admin: 02/15/17 08:34 Dose: 75 mg Ezetimibe (Zetia) 10 mg PO DAILY [facility] Last Admin: 02/15/17 08:34 Dose: 10 mg Epoetin Panchito (Procrit) 8,000 unit SC [facility] Last Admin: 02/14/17 11:38 Dose: 8,000 unit Furosemide (Lasix) 80 mg PO F [facility] Last Admin: 02/14/17 09:21 Dose: 80 mg Guaifenesin/Dextromethorphan (Robitussin Dm) 10 ml PO Q4 PRN PRN Reason: Cough Last Admin: 02/15/17 08:34 Dose: 10 ml Heparin Sodium (Porcine) (Heparin) 5,000 units SC Q12 [facility] PRN Reason: Protocol Last Admin: 02/15/17 08:32 Dose: 5,000 units Nystatin (Mycostatin Oint) 1 applic TOP TID [facility] Last Admin: 02/15/17 16:50 Dose: 1 oin Oxandrolone (Oxandrin) 5 mg PO BID [facility] Last Admin: 02/15/17 16:49 Dose: 5 mg Pantoprazole Sodium (Protonix Ec Tab) 40 mg PO DAILY [facility] Last Admin: 02/15/17 08:34 Dose: 40 mg Sevelamer Carbonate (Renvela) 0.8 gm PO TID [facility] Last Admin: 02/15/17 16:50 Dose: 0.8 gm Silver Sulfadiazine (Silvadene 1% 20 Gm) 0 ea TOP BID [facility] Last Admin: 02/15/17 16:49 Dose: 1 applic Tamsulosin HCl (Flomax) 0.4 mg PO BID [facility] Last Admin: 02/15/17 16:49 Dose: 0.4 mg Vitamin B Complex/Vit C/Folic Acid (Nephro-Chris) 1 tab PO DAILY [facility] Last Admin: 02/15/17 08:33 Dose: 1 tab - Labs Labs: 02/13/17 05:30 02/14/17 13:20
--- NOTE | 2017-02-15 18:42 | PN ---
Room #626. This is a 66-year-old male with recent uncontrolled type 1 insulin dependent diabetes, now being followed closely for metabolic management. He had a previous bout of diabetic ketoacidosis and metabolic encephalopathy and supraventricular renal failure and has since then improved clinically and metabolically as noted thereof. He has now been taken off all hemodialysis at this time. He has also resume the use of his Medtronic insulin pump and has been allowed to self adjust his own basal and bolus insulin regimen as given. His glucose values today have much improved, ranging from 177 to 195 and 275 mg/dl. His latest chemistries include a BUN of 46, Sodium 141, potassium 3.9, chloride 105, CO2 of 22, glucose 238, and creatinine 2.3. So, at this time, we will continue to self adjustment of his basal and bolus insulin regimen using a Medtronic insulin pump as given. We will obtain serial chemistries and supplement accordingly as needed. We will follow. Payton Singleton MD
--- NOTE | 2017-02-16 07:16 | CP.PCM.PN ---
<Ju Sandoval - Last Filed: 02/16/17 11:02> Subjective - Date & Time of Evaluation Date of Evaluation: 02/16/17 Time of Evaluation: 10:00 - Subjective Subjective: Podiatry Progress Note for Dr. Weldon 66 y/o IDDM male seen at bedside with attending Dr. Weldon for popped R heel blister. Patient is resting comfortably in his chair in NAD. Pt states he will be going home on Tuesday and wishes to follow up with Fatemeh in his office. Pt denies any F/C/N/V/SOB. Pt is not experiencing any pain in the foot at this time. Objective - Vital Signs/Intake and Output Vital Signs (last 24 hours): Temp Pulse Resp BP Pulse Ox 98.2 F 75 20 164/72 H 100 02/15/17 20:17 02/15/17 21:21 02/15/17 20:17 02/15/17 21:21 02/15/17 20:17 - Medications Medications: Current Medications Aspirin (Aspirin Chewable) 81 mg PO DAILY [facility] Last Admin: 02/15/17 08:31 Dose: 81 mg Atorvastatin Calcium (Lipitor) 80 mg PO HS [facility] Last Admin: 02/15/17 21:21 Dose: 80 mg Carvedilol (Coreg) 25 mg PO Q12 [facility] Last Admin: 02/15/17 21:21 Dose: 25 mg Clopidogrel Bisulfate (Plavix) 75 mg PO DAILY [facility] Last Admin: 02/15/17 08:34 Dose: 75 mg Collagenase (Santyl) 1 applic TOP DAILY [facility] Ezetimibe (Zetia) 10 mg PO DAILY [facility] Last Admin: 02/15/17 08:34 Dose: 10 mg Epoetin Panchito (Procrit) 8,000 unit SC MWF [facility] Last Admin: 02/14/17 11:38 Dose: 8,000 unit Furosemide (Lasix) 80 mg PO F [facility] Last Admin: 02/14/17 09:21 Dose: 80 mg Guaifenesin/Dextromethorphan (Robitussin Dm) 10 ml PO Q4 PRN PRN Reason: Cough Last Admin: 02/15/17 08:34 Dose: 10 ml Heparin Sodium (Porcine) (Heparin) 5,000 units SC Q12 [facility] PRN Reason: Protocol Last Admin: 02/15/17 21:22 Dose: 5,000 units Nystatin (Mycostatin Oint) 1 applic TOP TID [facility] Last Admin: 02/15/17 16:50 Dose: 1 oin Oxandrolone (Oxandrin) 5 mg PO BID [facility] Last Admin: 02/15/17 16:49 Dose: 5 mg Pantoprazole Sodium (Protonix Ec Tab) 40 mg PO DAILY [facility] Last Admin: 02/15/17 08:34 Dose: 40 mg Sevelamer Carbonate (Renvela) 0.8 gm PO TID [facility] Last Admin: 02/15/17 16:50 Dose: 0.8 gm Silver Sulfadiazine (Silvadene 1% 20 Gm) 0 ea TOP BID [facility] Last Admin: 02/15/17 16:49 Dose: 1 applic Tamsulosin HCl (Flomax) 0.4 mg PO BID [facility] Last Admin: 02/15/17 16:49 Dose: 0.4 mg Vitamin B Complex/Vit C/Folic Acid (Nephro-Chris) 1 tab PO DAILY [facility] Last Admin: 02/15/17 08:33 Dose: 1 tab - Labs Labs: 02/13/17 05:30 02/14/17 13:20 - Constitutional Appears: Well, Non-toxic, No Acute Distress - Extremities Exam Additional comments: RLE focused examination: Vasc: DP/PT pulses palpable 2/4. Temperature gradient warm to cool. CFT < 3 sec to all digits. No pedal edema Derm: 3.5cm x 2.5cm x superficial blister noted to heel. Base of blister reveals healthy pink superficial tissue. Proximal aspect of blister contains intact skin roof with mildly macerated skin that is lifting off. No sanguinous drainage noted on previous dressing. No purulence, no malodor, no fluctuance, no undermining, no underlying ulceration, no tunneling, no erythema, no cellulitic changes. No clinical signs of infection. Neuro: Protective sensation grossly intact Ortho: No tenderness upon palpation of R heel blister - Neurological Exam Neurological Exam: Alert, Awake, Oriented x3 - Psychiatric Exam Psychiatric exam: Normal Affect, Normal Mood Assessment and Plan - Assessment and Plan (Free Text) Assessment: 66 y/o IDDM male with R heel pressure blister Plan: Pt seen at bedside with attending Dr. Weldon Chart, labs and vitals reviewed- afebrile, last WBC 10.0 Cleansed R heel blister with saline and 4x4 gauze Aseptic excisional debridement of 2cm x 1cm x superficial proximal loose skin roof of blister with forceps and sterile #15 blade down to healthy subcutaneous tissue Pt instructed to continue to wear heel protective boots to offload the area at all times non-weight bearing, both in bed and in his chair Nursing orders are in place to change dressings daily with Silvadene and DSD Podiatry to sign off at this time Patient to follow up as outpatient with Dr. Weldon in his office <Roger Weldon - Last Filed: 02/16/17 11:34> Objective - Vital Signs/Intake and Output Vital Signs (last 24 hours): Temp Pulse Resp BP Pulse Ox 98.1 F 70 20 180/79 H 96 02/16/17 08:05 02/16/17 08:37 02/16/17 08:05 02/16/17 08:41 02/16/17 08:05 - Medications Medications: Current Medications Aspirin (Aspirin Chewable) 81 mg PO DAILY [facility] Last Admin: 02/15/17 08:31 Dose: 81 mg Atorvastatin Calcium (Lipitor) 80 mg PO HS [facility] Last Admin: 02/15/17 21:21 Dose: 80 mg Carvedilol (Coreg) 25 mg PO Q12 [facility] Last Admin: 02/16/17 08:37 Dose: 25 mg Clopidogrel Bisulfate (Plavix) 75 mg PO DAILY [facility] Last Admin: 02/15/17 08:34 Dose: 75 mg Collagenase (Santyl) 1 applic TOP DAILY [facility] Last Admin: 02/16/17 08:49 Dose: 1 applic Ezetimibe (Zetia) 10 mg PO DAILY [facility] Last Admin: 02/16/17 08:50 Dose: 10 mg Epoetin Panchito (Procrit) 8,000 unit SC MWF [facility] Last Admin: 02/14/17 11:38 Dose: 8,000 unit Furosemide (Lasix) 80 mg PO F [facility] Last Admin: 02/16/17 08:41 Dose: 80 mg Guaifenesin/Dextromethorphan (Robitussin Dm) 10 ml PO Q4 PRN PRN Reason: Cough Last Admin: 02/15/17 08:34 Dose: 10 ml Heparin Sodium (Porcine) (Heparin) 5,000 units SC Q12 [facility] PRN Reason: Protocol Last Admin: 02/15/17 21:22 Dose: 5,000 units Nystatin (Mycostatin Oint) 1 applic TOP TID [facility] Last Admin: 02/16/17 08:42 Dose: 1 oin Oxandrolone (Oxandrin) 5 mg PO BID [facility] Last Admin: 02/16/17 08:47 Dose: 5 mg Pantoprazole Sodium (Protonix Ec Tab) 40 mg PO DAILY [facility] Last Admin: 02/16/17 08:49 Dose: 40 mg Sevelamer Carbonate (Renvela) 0.8 gm PO TID [facility] Last Admin: 02/16/17 08:49 Dose: 0.8 gm Silver Sulfadiazine (Silvadene 1% 20 Gm) 0 ea TOP BID [facility] Last Admin: 02/16/17 08:50 Dose: 1 applic Tamsulosin HCl (Flomax) 0.4 mg PO BID [facility] Last Admin: 02/16/17 08:40 Dose: 0.4 mg Vitamin B Complex/Vit C/Folic Acid (Nephro-Chris) 1 tab PO DAILY [facility] Last Admin: 02/16/17 08:43 Dose: 1 tab - Labs Labs: 02/13/17 05:30 02/16/17 07:45 APTT 24.9 Seconds (25.6-37.1) L 02/16/17 10:13 Assessment and Plan - Assessment and Plan (Free Text) Plan: Pt seen at bedside with resident . freeman 1 heel ulcer right .Wound is stable with no sign of infection noted . wound care as noted above . Patient does have [facility] in [place] area and will follow with that office if possible . [facility] wound services to be arranged by discharge planning .
[2017-02-16] MEDS: Nystatin Ointment TOP SCH ×3 (08:42→16:16)
[2017-02-16] MEDS: Multivitamin Vitamin B Complex (Nephro-Vite) Tab PO SCH (08:43)
[2017-02-16] MEDS: Pantoprazole 40 mg EC Tab PO SCH (08:49)
[2017-02-16] MEDS: Sevelamer Carb 0.8 gm/Packet PO SCH ×3 (08:49→16:18)
[2017-02-16] MEDS: Santyl Collagenase OINTMENT TOP SCH (08:49)
[2017-02-16] MEDS: Silver Sulfadiazine 1% Cream (20 gm) TOP SCH ×2 (08:50→16:18)
[2017-02-16 09:00] LABS: CALCIUM 8.3 mg/dL (8.4-10.2)
--- NOTE | 2017-02-16 09:52 | CP.PCM.PN ---
Subjective - Date & Time of Evaluation Date of Evaluation: 02/16/17 Time of Evaluation: 11:00 - Subjective Subjective: Patient seen and examined . Sitting in chair , comfortable in NAD. No acute issues overnight. Participating with PT.For HD catheter removal in AM and discharge on Tuesday . Objective - Vital Signs/Intake and Output Vital Signs (last 24 hours): Temp Pulse Resp BP Pulse Ox 98.1 F 70 20 180/79 H 96 02/16/17 08:05 02/16/17 08:37 02/16/17 08:05 02/16/17 08:41 02/16/17 08:05 - Medications Medications: Current Medications Aspirin (Aspirin Chewable) [address] [facility] Last Admin: 02/15/17 08:31 Dose: 81 mg Atorvastatin Calcium (Lipitor) [address] [facility] Last Admin: 02/15/17 21:21 Dose: 80 mg Carvedilol (Coreg) [address] [facility] Last Admin: 02/16/17 08:37 Dose: 25 mg Clopidogrel Bisulfate (Plavix) [address] [facility] Last Admin: 02/15/17 08:34 Dose: 75 mg Collagenase (Santyl) [address] [facility] Last Admin: 02/16/17 08:49 Dose: 1 applic Ezetimibe (Zetia) [address] [facility] Last Admin: 02/16/17 08:50 Dose: 10 mg Epoetin Panchito (Procrit) 8,[address] [facility] Last Admin: 02/14/17 11:38 Dose: 8,000 unit Furosemide (Lasix) [address] [facility] Last Admin: 02/16/17 08:41 Dose: 80 mg Guaifenesin/Dextromethorphan (Robitussin Dm) 10 ml PO Q4 PRN PRN Reason: Cough Last Admin: 02/15/17 08:34 Dose: 10 ml Heparin Sodium (Porcine) (Heparin) 5,[address] [facility] PRN Reason: Protocol Last Admin: 02/15/17 21:22 Dose: 5,000 units Nystatin (Mycostatin Oint) [address] [facility] Last Admin: 02/16/17 08:42 Dose: 1 oin Oxandrolone (Oxandrin) [address] [facility] Last Admin: 02/16/17 08:47 Dose: 5 mg Pantoprazole Sodium (Protonix Ec Tab) [address] [facility] Last Admin: 02/16/17 08:49 Dose: 40 mg Sevelamer Carbonate (Renvela) 0.[address] [facility] Last Admin: 02/16/17 08:49 Dose: 0.8 gm Silver Sulfadiazine (Silvadene 1% 20 Gm) [address] [facility] Last Admin: 02/16/17 08:50 Dose: 1 applic Tamsulosin HCl (Flomax) 0.[address] [facility] Last Admin: 02/16/17 08:40 Dose: 0.4 mg Vitamin B Complex/Vit C/Folic Acid (Nephro-Chris) [address] [facility] Last Admin: 02/16/17 08:43 Dose: 1 tab - Labs Labs: 02/13/17 05:30 02/16/17 07:45 - Constitutional Appears: Well, Non-toxic, No Acute Distress - Head Exam Head Exam: ATRAUMATIC, NORMOCEPHALIC - Eye Exam Eye Exam: EOMI, Normal appearance, PERRL Pupil Exam: NORMAL ACCOMODATION - ENT Exam ENT Exam: Mucous Membranes Moist, Normal Exam - Neck Exam Neck Exam: Full ROM, Normal Inspection - Respiratory Exam Respiratory Exam: Clear to Ausculation Bilateral, NORMAL BREATHING PATTERN. absent: Rales, Rhonchi, Wheezes - Cardiovascular Exam Cardiovascular Exam: REGULAR RHYTHM, RRR, +S1, +S2. absent: JVD - GI/Abdominal Exam GI & Abdominal Exam: Soft, Normal Bowel Sounds. absent: Distended, Guarding, Tenderness, Rebound - Rectal Exam Rectal Exam: Deferred - Extremities Exam Extremities Exam: Full ROM, Normal Capillary Refill, Normal Inspection. absent : Calf Tenderness, Pedal Edema - Back Exam Back Exam: NORMAL INSPECTION - Neurological Exam Neurological Exam: Alert, Awake, CN II-XII Intact, Oriented x3 - Psychiatric Exam Psychiatric exam: Normal Affect, Normal Mood - Skin Skin Exam: Dry, Intact, Warm Additional comments: vitiligo , face , extremities Assessment and Plan - Assessment and Plan (Free Text) Assessment: This is a 66 yo male with history of IDDM with Insulin pump , CAD, HTN was [place] [facility] [place] physical therapy. He was admitted [place] [facility] [place]KA with coma, Metabolic Encephalopathy, Acute Respiratory Failure, ARF requiring dialysis and Sepsis. At present patient fdoing well, participating with PT.Renal failure resolved, off HD for 1 week. for discharge home on Tuesday. 1. Metabolic encephalopathy improved - pt is alert, oriented continue PT and OT 2. Diabetes mellitus type 1 patient on insulin pump - manages his DM by self adjusting his basal and bolus insulin requirements Blood Glucose not controlled endocrinology consult with Dr Singleton 3. ESRD (end stage renal disease) on dialysis renal function continuing to improve off HD for 1 week patient voiding well BUN/ cr 39/1.9 Will d/c HD catheter as per nephro Dr. Ch following patient closely 4. 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 Decubitus skin ulcer, right Heel DTI ( POA) wound care consult Podiatry consulted 6. Atrial Fibrillation episode rate controlled and presently in sinus continue Carvedilol. Heparin 5000 units SC q 12hrs as per cardiology consult, AFib was only verbally reported and may not need long period of anticoagulation Dr. Robins, on cardiology consult ECHO ; normal wall motion, normal EF cont ASA 7. Urinary Retention Dr Oliveira, urologist, on consult Continuing to void well on his own cont Flomax 8. DVT prophylaxis continue Heparin 5000 units SC q 12hrs 9. Hypertension not well controlled on Coref Start Norvasc 10 mg po QD Avoid ARB / ACEI due to renal failure 10. CAD ( has 2 stents) stable, chest pain free continue ASA, statin, coreg Echo sowed normal EF no ACEI / ARB to to renal failure 11.Dyslipidemia on atorvastatin and zetia
[2017-02-16] MEDS: Epoetin Alfa 20000 UNIT/ML Inj SC SCH (12:14)
--- NOTE | 2017-02-16 16:04 | CP.PCM.PN ---
Subjective - Date & Time of Evaluation Date of Evaluation: 02/16/17 Time of Evaluation: 16:02 - Subjective Subjective: Patient sitting in the chair and comfortable No new events reported Serum creatinine continued to improve came down to 1.8 Electrolyte okay Still have anemia patient receiving EPO and iron intravenous To remove dialysis catheter Patient is off dialysis Objective - Vital Signs/Intake and Output Vital Signs (last 24 hours): Temp Pulse Resp BP Pulse Ox 98.1 F 70 20 180/79 H 96 02/16/17 08:05 02/16/17 08:37 02/16/17 08:05 02/16/17 08:41 02/16/17 08:05 - Medications Medications: Current Medications Amlodipine Besylate (Norvasc) 10 mg PO [facility] Aspirin (Aspirin Chewable) 81 mg PO DAILY [facility] Last Admin: 02/16/17 12:06 Dose: Not Given Atorvastatin Calcium (Lipitor) 80 mg PO [facility] Last Admin: 02/15/17 21:21 Dose: 80 mg Carvedilol (Coreg) 25 mg PO Q12 [facility] Last Admin: 02/16/17 08:37 Dose: 25 mg Clopidogrel Bisulfate (Plavix) 75 mg PO DAILY [facility] Last Admin: 02/16/17 12:13 Dose: Not Given Collagenase (Santyl) 1 applic TOP DAILY [facility] Last Admin: 02/16/17 08:49 Dose: 1 applic Ezetimibe (Zetia) 10 mg PO DAILY [facility] Last Admin: 02/16/17 08:50 Dose: 10 mg Epoetin Panchito (Procrit) 8,[address] [facility] Last Admin: 02/16/17 12:14 Dose: 8,000 unit Furosemide (Lasix) 80 mg PO F [facility] Last Admin: 02/16/17 08:41 Dose: 80 mg Guaifenesin/Dextromethorphan (Robitussin Dm) 10 ml PO Q4 PRN PRN Reason: Cough Last Admin: 02/15/17 08:34 Dose: 10 ml Heparin Sodium (Porcine) (Heparin) 5,000 units SC Q12 [facility] PRN Reason: Protocol Last Admin: 02/16/17 12:09 Dose: Not Given Nystatin (Mycostatin Oint) 1 applic TOP TID [facility] Last Admin: 02/16/17 12:12 Dose: Not Given Oxandrolone (Oxandrin) 5 mg PO BID [facility] Last Admin: 02/16/17 08:47 Dose: 5 mg Pantoprazole Sodium (Protonix Ec Tab) 40 mg PO DAILY [facility] Last Admin: 02/16/17 08:49 Dose: 40 mg Sevelamer Carbonate (Renvela) 0.8 gm PO TID [facility] Last Admin: 02/16/17 12:14 Dose: 0.8 gm Silver Sulfadiazine (Silvadene 1% 20 Gm) 0 ea TOP BID [facility] Last Admin: 02/16/17 08:50 Dose: 1 applic Tamsulosin HCl (Flomax) 0.4 mg PO BID [facility] Last Admin: 02/16/17 08:40 Dose: 0.4 mg Vitamin B Complex/Vit C/Folic Acid (Nephro-Chris) 1 tab PO DAILY [facility] Last Admin: 02/16/17 08:43 Dose: 1 tab - Labs Labs: 02/13/17 05:30 02/16/17 07:45 APTT 24.9 Seconds (25.6-37.1) L 02/16/17 10:13 - Constitutional Appears: No Acute Distress - ENT Exam ENT Exam: Mucous Membranes Moist - Respiratory Exam Respiratory Exam: NORMAL BREATHING PATTERN. absent: Chest Wall Tenderness - Cardiovascular Exam Cardiovascular Exam: absent: JVD, Rubs - Extremities Exam Extremities Exam: absent: Calf Tenderness - Back Exam Back Exam: absent: CVA tenderness (L), CVA tenderness (R) - Neurological Exam Neurological Exam: Alert Assessment and Plan (1) ESRD (end stage renal disease) on dialysis Status: Acute (2) Acute kidney failure, unspecified Status: Acute
--- NOTE | 2017-02-16 21:39 | PN ---
ENDO FOLLOWUP NOTE LOCATION: In room 626, rehabilitation unit. This is a 66-year-old male with recent uncontrolled type 1 insulin dependent diabetes now being followed closely for metabolic management. His glycemic values are fluctuating as noted and the glucose levels at lunchtime were actually 312 mg/dL. His fasting glucose was 190 as noted. The latest chemistry showed a BUN of 39, sodium 143, potassium 4.0, chloride 108, CO2 of 25, glucose 167 and creatinine 1.9. So at this time, we once again encouraged the patient to self adjust his basal and bolus insulin regimen on his Medtronic insulin pump as instructed. He has been taken off hemodialysis at this time and with remarkable biochemical improvement of his kidney function as noted. A lengthy bedside discussion was undertaken with the patient regarding the imperative need for tighter metabolic control as noted. We will follow with you. Payton Singleton MD
[2017-02-17] MEDS: Santyl Collagenase OINTMENT TOP SCH (08:45)
[2017-02-17] MEDS: Nystatin Ointment TOP SCH ×3 (08:45→17:07)
[2017-02-17] MEDS: Multivitamin Vitamin B Complex (Nephro-Vite) Tab PO SCH (08:46)
[2017-02-17] MEDS: Sevelamer Carb 0.8 gm/Packet PO SCH ×3 (08:46→17:08)
[2017-02-17] MEDS: Pantoprazole 40 mg EC Tab PO SCH (08:49)
[2017-02-17] MEDS: Silver Sulfadiazine 1% Cream (20 gm) TOP SCH ×2 (08:49→17:07)
--- NOTE | 2017-02-17 11:11 | CP.PCM.PN ---
Subjective - Date & Time of Evaluation Date of Evaluation: 02/17/17 Time of Evaluation: 11:09 - Subjective Subjective: Patient and bed awake consciousness is feeling good appetite is very good Patient continued to make good urine Decrease leg swollen to the minimal Review lab From creatinine down to 1.9 Discontinue no dialysis catheter Continue EPO and ferrous sulfate Patient will need follow-up as outpatient. Objective - Vital Signs/Intake and Output Vital Signs (last 24 hours): Temp Pulse Resp BP Pulse Ox 97.7 F 73 20 162/80 H 100 02/16/17 19:59 02/17/17 08:46 02/16/17 19:59 02/17/17 08:46 02/16/17 19:59 - Medications Medications: Current Medications Amlodipine Besylate (Norvasc) 10 mg PO [facility] Last Admin: 02/16/17 21:33 Dose: Not Given Aspirin (Aspirin Chewable) 81 mg PO DAILY [facility] Last Admin: 02/17/17 08:45 Dose: Not Given Atorvastatin Calcium (Lipitor) 80 mg PO [facility] Last Admin: 02/16/17 21:33 Dose: 80 mg Carvedilol (Coreg) 25 mg PO Q12 [facility] Last Admin: 02/17/17 08:46 Dose: 25 mg Clopidogrel Bisulfate (Plavix) 75 mg PO DAILY [facility] Last Admin: 02/17/17 08:48 Dose: Not Given Collagenase (Santyl) 1 applic TOP DAILY [facility] Last Admin: 02/17/17 08:45 Dose: 1 applic Ezetimibe (Zetia) 10 mg PO DAILY [facility] Last Admin: 02/17/17 08:46 Dose: 10 mg Epoetin Panchito (Procrit) 8,000 unit SC [facility] Last Admin: 02/16/17 12:14 Dose: 8,000 unit Ferrous Sulfate (Feosol) 325 mg PO DAILY [facility] Furosemide (Lasix) 80 mg PO MWF [facility] Last Admin: 02/16/17 08:41 Dose: 80 mg Guaifenesin/Dextromethorphan (Robitussin Dm) 10 ml PO Q4 PRN PRN Reason: Cough Last Admin: 02/15/17 08:34 Dose: 10 ml Heparin Sodium (Porcine) (Heparin) 5,000 units SC Q12 [facility] PRN Reason: Protocol Last Admin: 02/17/17 08:47 Dose: Not Given Nystatin (Mycostatin Oint) 1 applic TOP TID [facility] Last Admin: 02/17/17 08:45 Dose: 1 oin Oxandrolone (Oxandrin) 5 mg PO BID [facility] Last Admin: 02/17/17 08:45 Dose: 5 mg Pantoprazole Sodium (Protonix Ec Tab) 40 mg PO DAILY [facility] Last Admin: 02/17/17 08:49 Dose: 40 mg Sevelamer Carbonate (Renvela) 0.8 gm PO TID [facility] Last Admin: 02/17/17 08:46 Dose: 0.8 gm Silver Sulfadiazine (Silvadene 1% 20 Gm) 0 ea TOP BID [facility] Last Admin: 02/17/17 08:49 Dose: 1 applic Tamsulosin HCl (Flomax) 0.4 mg PO BID [facility] Last Admin: 02/17/17 08:47 Dose: 0.4 mg Vitamin B Complex/Vit C/Folic Acid (Nephro-Chris) 1 tab PO DAILY [facility] Last Admin: 02/17/17 08:46 Dose: 1 tab - Labs Labs: 02/13/17 05:30 02/16/17 07:45 PT 11.3 Seconds (9.8-13.1) 02/17/17 05:35 INR 1.1 (0.9-1.2) 02/17/17 05:35 APTT 24.9 Seconds (25.6-37.1) L 02/16/17 10:13 Assessment and Plan (1) ESRD (end stage renal disease) on dialysis Status: Acute (2) Acute kidney failure, unspecified Status: Acute
[2017-02-17] MEDS ORDERED: Lidocaine 1% Inj (20ml) ONE (11:41)
--- NOTE | 2017-02-17 11:59 | PCM.SURG1 ---
Surgeon's Initial Post Op Note - Surgeon's Notes Surgeon: Tj Willett MD Dictionary Editor: None Type of Anesthesia: None Pre-Operative Diagnosis: Renal failure, improved renal function Operative Findings: Right IJV HD catheteR. Post-Operative Diagnosis: Renal failure, improved renal function Operation Performed: Right IJV tunneled HD catheter removal. Specimen/Specimens Removed: HD catheter Estimated Blood Loss: EBL {In ML}: 2 Blood Products Given: N/A Drains Used: No Drains Post-Op Condition: Good Date of Surgery/Procedure: 02/17/17 Time of Surgery/Procedure: 11:55
[2017-02-17 12:56] VITALS: RESP 20; O2SAT 98
[2017-02-17 20:22] VITALS: TEMP 98.2
--- NOTE | 2017-02-18 01:24 | PN ---
ENDOCRINOLOGY FOLLOWUP NOTE DATE: LOCATION: Room 626. SUBJECTIVE: This is a 66-year-old male with recently uncontrolled type 1 insulin-dependent diabetes presenting here for acute rehabilitation following a bout of DKA and acute renal failure at the [facility] and has since then improved clinically and metabolically as noted thereof. He has since then been taken off hemodialysis at this time with improved kidney function as noted. His glycemic levels are fluctuating, but much improved at this time and he has actually resumed the use of his Medtronic insulin pump as noted. His glucose values today have ranged from 128 to 158 and 246 mg/dL. His latest chemistry showed a BUN of 39, sodium 143, potassium 4.0, chloride 108, CO2 of 25, glucose 167, and creatinine 1.9. So, at this time, we will continue the same basal and bolus insulin dose regimen as ordered and the patient has been allowed to self adjust his own basal and bolus insulin regimen as given. We will obtain serial chemistries and supplement accordingly as needed. We will follow. Payton Singleton MD
[2017-02-18 07:41] LABS: BASO # 0.1 K/uL (0.0-0.2); BASO % 1.7 % (0.0-2.0); EOS # 0.2 K/uL (0.0-0.7); EOS % 2.4 % (0.0-4.0); HEMATOCRIT 26.7 % (35.0-51.0); LYMPH # 1.2 K/uL (1.0-4.3); LYMPH % 18.7 % (20.0-40.0); MEAN CELL VOLUME 90.8 fl (80.0-94.0); MEAN CORPUSCULAR HEMOGLOBIN 29.1 pg (27.0-31.0); MEAN CORPUSCULAR HGB CONC 32.1 g/dL (33.0-37.0); MONO # 0.5 K/uL (0.0-0.8); MONO % 7.8 % (0.0-10.0); NEUT # 4.6 K/uL (1.8-7.0); NEUT % 69.4 % (50.0-75.0); RED CELL DISTRIBUTION WIDTH 17.7 % (11.5-14.5); WHITE BLOOD COUNT 6.6 K/uL (4.8-10.8)
[2017-02-18] MEDS: Sevelamer Carb 0.8 gm/Packet PO SCH ×2 (08:16→16:18)
[2017-02-18] MEDS: Pantoprazole 40 mg EC Tab PO SCH (08:23)
[2017-02-18] MEDS: Nystatin Ointment TOP SCH ×2 (08:24→13:00)
[2017-02-18] MEDS: Santyl Collagenase OINTMENT TOP SCH (08:25)
[2017-02-18] MEDS: Silver Sulfadiazine 1% Cream (20 gm) TOP SCH (08:25)
[2017-02-18 08:27] LABS: CALCIUM 8.3 mg/dL (8.4-10.2); POTASSIUM 3.3 MMOL/L (3.6-5.0); TOTAL PROTEIN 5.9 G/DL (6.3-8.2)
[2017-02-18 08:28] LABS: BILIRUBIN,TOTAL 0.7 mg/dl (0.2-1.3); THYROID STIMULATING HORMONE 6.08 mIU/ML (0.46-4.68)
--- NOTE | 2017-02-18 08:36 | CP.PCM.CON ---
History of Present Illness - History of Present Illness History of Present Illness: Pt seen for supportive therapy 8-8:20. Pt discussed discharge today. Mood postiive affect full in range. pt discussed gains, increased strength and plans for the future. Pt spoke of obtaining an MD in the community and other options for ensuring his health/welfare. Pt adjusted well. Past Patient History - Tetanus Immunizations Tetanus Immunization: Unknown - Past Medical History & Family History Past Medical History?: Yes - Past Social History Smoking Status: Never Smoked - CARDIAC Hx Hypertension: Yes - PULMONARY Hx Pneumonia: Yes (aspiration pneumonia) Hx Respiratory Aspiration: Yes - NEUROLOGICAL Hx Seizures: Yes (hypoglycemic seizure) - HEENT Hx HEENT Problems: Yes Hx Deafness: Yes (left ear with hearing aid,pt.lost it) - RENAL Hx Chronic Kidney Disease: Yes Hx Dialysis: Yes (acute now) Type of Dialysis Access: hemodialysis Date of Last Dialysis Treatment: 01/28/17 Hx Renal Failure: Yes Other/Comment: not voiding anymore - ENDOCRINE/METABOLIC Hx Diabetes Mellitus Type 1: Yes - HEMATOLOGICAL/ONCOLOGICAL Hx AIDS: No Hx Blood Transfusions: No Hx Human Immunodeficiency Virus (HIV): No - INTEGUMENTARY Hx Dermatological Problems: No Other/Comment: vitilago - MUSCULOSKELETAL/RHEUMATOLOGICAL Hx Falls: No - GASTROINTESTINAL Hx Gastrointestinal Disorders: No - GENITOURINARY/GYNECOLOGICAL Hx Genitourinary Disorders: No Hx Hematuria: Yes (due to traumatic abdalla) Other/Comment: penile implant - PSYCHIATRIC Hx Substance Use: No - ANESTHESIA Hx Anesthesia: No Meds Allergies/Adverse Reactions: Allergies Allergy/AdvReac Type Severity Reaction Status Date / Time Penicillins Allergy Severe RASH Verified 01/28/17 21:13 - Medications Medications: Current Medications Amlodipine Besylate (Norvasc) 10 mg PO [facility] Last Admin: 02/17/17 21:16 Dose: Not Given Aspirin (Aspirin Chewable) 81 mg PO DAILY [facility] Last Admin: 02/18/17 08:22 Dose: 81 mg Atorvastatin Calcium (Lipitor) 80 mg PO [facility] Last Admin: 02/17/17 21:16 Dose: 80 mg Carvedilol (Coreg) 25 mg PO Q12 [facility] Last Admin: 02/17/17 20:15 Dose: 25 mg Clopidogrel Bisulfate (Plavix) 75 mg PO DAILY [facility] Last Admin: 02/18/17 08:16 Dose: 75 mg Collagenase (Santyl) 1 applic TOP DAILY [facility] Last Admin: 02/18/17 08:25 Dose: 1 applic Ezetimibe (Zetia) 10 mg PO DAILY [facility] Last Admin: 02/17/17 08:46 Dose: 10 mg Epoetin Panchito (Procrit) 8,000 unit SC [facility] Last Admin: 02/16/17 12:14 Dose: 8,000 unit Ferrous Sulfate (Feosol) 325 mg PO DAILY [facility] Last Admin: 02/18/17 08:17 Dose: 325 mg Furosemide (Lasix) 80 mg PO MWF [facility] Last Admin: 02/16/17 08:41 Dose: 80 mg Guaifenesin/Dextromethorphan (Robitussin Dm) 10 ml PO Q4 PRN PRN Reason: Cough Last Admin: 02/15/17 08:34 Dose: 10 ml Heparin Sodium (Porcine) (Heparin) 5,000 units SC Q12 [facility] PRN Reason: Protocol Last Admin: 02/18/17 08:23 Dose: 5,000 units Nystatin (Mycostatin Oint) 1 applic TOP TID [facility] Last Admin: 02/18/17 08:24 Dose: 1 oin Oxandrolone (Oxandrin) 5 mg PO BID [facility] Last Admin: 02/18/17 08:22 Dose: 5 mg Pantoprazole Sodium (Protonix Ec Tab) 40 mg PO DAILY [facility] Last Admin: 02/18/17 08:23 Dose: 40 mg Sevelamer Carbonate (Renvela) 0.8 gm PO TID [facility] Last Admin: 02/18/17 08:16 Dose: 0.8 gm Silver Sulfadiazine (Silvadene 1% 20 Gm) 0 ea TOP BID [facility] Last Admin: 02/18/17 08:25 Dose: 1 applic Tamsulosin HCl (Flomax) 0.4 mg PO BID [facility] Last Admin: 02/17/17 17:08 Dose: 0.4 mg Vitamin B Complex/Vit C/Folic Acid (Nephro-Chris) 1 tab PO DAILY [facility] Last Admin: 02/17/17 08:46 Dose: 1 tab Results - Vital Signs Recent Vital Signs: Last Vital Signs Temp 98.2 F 02/17/17 20:21 Pulse 71 02/17/17 20:21 Resp 20 02/17/17 20:21 BP 154/80 H 02/17/17 20:21 Pulse Ox 98 02/17/17 20:21 - Labs Result Diagrams: 02/18/17 06:35 02/18/17 06:35 Labs: Laboratory Results - last 24 hr 02/17/17 02/17/17 02/17/17 12:16 15:56 21:18 WBC RBC Hgb Hct MCV MCH MCHC RDW Plt Count MPV Neut % (Auto) Lymph % (Auto) [place] % (Auto) Eos % (Auto) Baso % (Auto) Neut # Lymph # [place] # Eos # Baso # Sodium Potassium Chloride Carbon Dioxide Anion Gap BUN Creatinine Est GFR ( Amer) Est GFR (Non-Af Amer) POC Glucose (mg/dL) 246 H 158 H 162 H Random Glucose Calcium Total Bilirubin AST ALT Alkaline Phosphatase Total Protein Albumin Globulin Albumin/Globulin Ratio TSH 3rd Generation 02/18/17 02/18/17 02/18/17 06:35 06:35 06:41 WBC 6.6 RBC 2.94 L Hgb 8.6 L Hct 26.7 L MCV 90.8 MCH 29.1 MCHC 32.1 L RDW 17.7 H Plt Count 198 MPV 8.0 Neut % (Auto) 69.4 Lymph % (Auto) 18.7 L [place] % (Auto) 7.8 Eos % (Auto) 2.4 Baso % (Auto) 1.7 Neut # 4.6 Lymph # 1.2 [place] # 0.5 Eos # 0.2 Baso # 0.1 Sodium 141 Potassium 3.3 L Chloride 107 Carbon Dioxide 24 Anion Gap 13 BUN 30 H Creatinine 1.6 H Est GFR ( Amer) 53 Est GFR (Non-Af Amer) 44 POC Glucose (mg/dL) 161 H Random Glucose 150 H Calcium 8.3 L Total Bilirubin 0.7 AST 57 ALT 56 Alkaline Phosphatase 367 H D Total Protein 5.9 L Albumin 2.9 L Globulin 3.0 Albumin/Globulin Ratio 1.0 TSH 3rd Generation 6.08 H
[2017-02-18 08:50] VITALS: PULSE 87
[2017-02-18] MEDS: Multivitamin Vitamin B Complex (Nephro-Vite) Tab PO SCH (11:14)
[2017-02-18 11:16] VITALS: BP 140/80
[2017-02-18] MEDS: Epoetin Alfa 20000 UNIT/ML Inj SC SCH (12:31)
--- NOTE | 2017-02-18 13:53 | CP.PCM.PN ---
Subjective - Date & Time of Evaluation Date of Evaluation: 02/18/17 Time of Evaluation: 09:00 - Subjective Subjective: no acute complaints at present Objective - Vital Signs/Intake and Output Vital Signs (last 24 hours): Temp Pulse Resp BP Pulse Ox 98.2 F 87 20 140/80 98 02/17/17 20:21 02/18/17 08:49 02/17/17 20:21 02/18/17 09:00 02/17/17 20:21 - Medications Medications: Current Medications Aspirin (Aspirin Chewable) 81 mg PO DAILY [facility] Last Admin: 02/18/17 08:22 Dose: 81 mg Atorvastatin Calcium (Lipitor) 80 mg PO HS [facility] Last Admin: 02/17/17 21:16 Dose: 80 mg Carvedilol (Coreg) 25 mg PO Q12 [facility] Last Admin: 02/18/17 08:49 Dose: 25 mg Clopidogrel Bisulfate (Plavix) 75 mg PO DAILY [facility] Last Admin: 02/18/17 08:16 Dose: 75 mg Collagenase (Santyl) 1 applic TOP DAILY [facility] Last Admin: 02/18/17 08:25 Dose: 1 applic Ezetimibe (Zetia) 10 mg PO DAILY [facility] Last Admin: 02/18/17 08:50 Dose: 10 mg Epoetin Panchito (Procrit) 8,000 unit SC F [facility] Last Admin: 02/18/17 12:31 Dose: 8,000 unit Ferrous Sulfate (Feosol) 325 mg PO DAILY [facility] Last Admin: 02/18/17 08:17 Dose: 325 mg Furosemide (Lasix) 80 mg PO MWF [facility] Last Admin: 02/18/17 09:00 Dose: 80 mg Guaifenesin/Dextromethorphan (Robitussin Dm) 10 ml PO Q4 PRN PRN Reason: Cough Last Admin: 02/15/17 08:34 Dose: 10 ml Heparin Sodium (Porcine) (Heparin) 5,000 units SC Q12 [facility] PRN Reason: Protocol Last Admin: 02/18/17 09:00 Dose: Not Given Nystatin (Mycostatin Oint) 1 applic TOP TID [facility] Last Admin: 02/18/17 08:24 Dose: 1 oin Pantoprazole Sodium (Protonix Ec Tab) 40 mg PO DAILY [facility] Last Admin: 02/18/17 08:23 Dose: 40 mg Sevelamer Carbonate (Renvela) 0.8 gm PO TID [facility] Last Admin: 02/18/17 08:16 Dose: 0.8 gm Silver Sulfadiazine (Silvadene 1% 20 Gm) 0 ea TOP BID [facility] Last Admin: 02/18/17 08:25 Dose: 1 applic Tamsulosin HCl (Flomax) 0.4 mg PO BID [facility] Last Admin: 02/18/17 08:49 Dose: 0.4 mg Vitamin B Complex/Vit C/Folic Acid (Nephro-Chris) 1 tab PO DAILY [facility] Last Admin: 02/18/17 11:14 Dose: 1 tab - Labs Labs: 02/18/17 06:35 02/18/17 06:35 PT 11.3 Seconds (9.8-13.1) 02/17/17 05:35 INR 1.1 (0.9-1.2) 02/17/17 05:35 APTT 24.9 Seconds (25.6-37.1) L 02/16/17 10:13 - Head Exam Head Exam: ATRAUMATIC, NORMAL INSPECTION, NORMOCEPHALIC - Eye Exam Eye Exam: EOMI, Normal appearance, PERRL Pupil Exam: NORMAL ACCOMODATION - ENT Exam ENT Exam: Mucous Membranes Moist, Normal Exam - Neck Exam Neck Exam: Normal Inspection - Respiratory Exam Respiratory Exam: NORMAL BREATHING PATTERN - Cardiovascular Exam Cardiovascular Exam: REGULAR RHYTHM - GI/Abdominal Exam GI & Abdominal Exam: Normal Bowel Sounds - Rectal Exam Rectal Exam: NORMAL INSPECTION - Exam External exam: NORMAL EXTERNAL EXAM - Extremities Exam Extremities Exam: Full ROM, Normal Capillary Refill - Back Exam Back Exam: NORMAL INSPECTION - Neurological Exam Neurological Exam: Alert, Awake Neuro motor strength exam: Left Upper Extremity: 4, Right Upper Extremity: 4, Left Lower Extremity: 3, Right Lower Extremity: 3 - Psychiatric Exam Psychiatric exam: Depressed, Normal Affect - Skin Skin Exam: Dry, Intact Assessment and Plan (1) Acute kidney failure, unspecified Assessment & Plan: plan for physical, occupationl and rec therapy for Dc today discussed Dc planning Status: Acute (2) Afib Status: Acute (3) Atrial fibrillation Status: Acute (4) DVT prophylaxis Status: Acute (5) Decubitus skin ulcer Status: Acute (6) Diabetes mellitus type 1 Status: Acute (7) ESRD (end stage renal disease) on dialysis Status: Acute (8) Metabolic encephalopathy Status: Resolved
--- NOTE | 2017-02-18 14:10 | CP.PCM.PN ---
Subjective - Date & Time of Evaluation Date of Evaluation: 02/18/17 Time of Evaluation: 14:00 - Subjective Subjective: no acute complaints Objective - Vital Signs/Intake and Output Vital Signs (last 24 hours): Temp Pulse Resp BP Pulse Ox 98.2 F 87 20 140/80 98 02/17/17 20:21 02/18/17 08:49 02/17/17 20:21 02/18/17 09:00 02/17/17 20:21 - Medications Medications: Current Medications Aspirin (Aspirin Chewable) 81 mg PO DAILY [facility] Last Admin: 02/18/17 08:22 Dose: 81 mg Atorvastatin Calcium (Lipitor) 80 mg PO HS [facility] Last Admin: 02/17/17 21:16 Dose: 80 mg Carvedilol (Coreg) 25 mg PO Q12 [facility] Last Admin: 02/18/17 08:49 Dose: 25 mg Clopidogrel Bisulfate (Plavix) 75 mg PO DAILY [facility] Last Admin: 02/18/17 08:16 Dose: 75 mg Collagenase (Santyl) 1 applic TOP DAILY [facility] Last Admin: 02/18/17 08:25 Dose: 1 applic Ezetimibe (Zetia) 10 mg PO DAILY [facility] Last Admin: 02/18/17 08:50 Dose: 10 mg Epoetin Panchito (Procrit) 8,000 unit SC MWF [facility] Last Admin: 02/18/17 12:31 Dose: 8,000 unit Ferrous Sulfate (Feosol) 325 mg PO DAILY [facility] Last Admin: 02/18/17 08:17 Dose: 325 mg Furosemide (Lasix) 80 mg PO MWF [facility] Last Admin: 02/18/17 09:00 Dose: 80 mg Guaifenesin/Dextromethorphan (Robitussin Dm) 10 ml PO Q4 PRN PRN Reason: Cough Last Admin: 02/15/17 08:34 Dose: 10 ml Heparin Sodium (Porcine) (Heparin) 5,000 units SC Q12 [facility] PRN Reason: Protocol Last Admin: 02/18/17 09:00 Dose: Not Given Nystatin (Mycostatin Oint) 1 applic TOP TID [facility] Last Admin: 02/18/17 08:24 Dose: 1 oin Pantoprazole Sodium (Protonix Ec Tab) 40 mg PO DAILY [facility] Last Admin: 02/18/17 08:23 Dose: 40 mg Sevelamer Carbonate (Renvela) 0.8 gm PO TID [facility] Last Admin: 02/18/17 08:16 Dose: 0.8 gm Silver Sulfadiazine (Silvadene 1% 20 Gm) 0 ea TOP BID [facility] Last Admin: 02/18/17 08:25 Dose: 1 applic Tamsulosin HCl (Flomax) 0.4 mg PO BID [facility] Last Admin: 02/18/17 08:49 Dose: 0.4 mg Vitamin B Complex/Vit C/Folic Acid (Nephro-Chris) 1 tab PO DAILY [facility] Last Admin: 02/18/17 11:14 Dose: 1 tab - Labs Labs: 02/18/17 06:35 02/18/17 06:35 PT 11.3 Seconds (9.8-13.1) 02/17/17 05:35 INR 1.1 (0.9-1.2) 02/17/17 05:35 APTT 24.9 Seconds (25.6-37.1) L 02/16/17 10:13 - Head Exam Head Exam: NORMAL INSPECTION - Eye Exam Pupil Exam: NORMAL ACCOMODATION Assessment and Plan (1) Acute kidney failure, unspecified Assessment & Plan: Dc for today covering for Dr estrella Status: Acute (2) Afib Status: Acute (3) Atrial fibrillation Status: Acute (4) DVT prophylaxis Status: Acute (5) Decubitus skin ulcer Status: Acute (6) Diabetes mellitus type 1 Status: Acute (7) ESRD (end stage renal disease) on dialysis Status: Acute (8) Metabolic encephalopathy Status: Resolved
[2017-02-18] MEDS ORDERED: Potassium Chloride 20 mEq ER Tab PO ONE (15:10)
--- NOTE | 2017-02-18 15:13 | CP.PCM.PN ---
Subjective - Date & Time of Evaluation Date of Evaluation: 02/18/17 Time of Evaluation: 15:12 - Subjective Subjective: Patient out of bed Feeling good Vital signs stable Potassium 3.3 Serum creatinine keep improving Patient is going home Give stat potassium chloride now Hold Lasix until I see him on Tuesday I explained to the patient to cut down the Renagel also 2 twice a day from 3 times a day and to repeat the blood work Patient is recovering from acute kidney injury Objective - Vital Signs/Intake and Output Vital Signs (last 24 hours): Temp Pulse Resp BP Pulse Ox 98.2 F 87 20 140/80 98 02/17/17 20:21 02/18/17 08:49 02/17/17 20:21 02/18/17 09:00 02/17/17 20:21 - Medications Medications: Current Medications Aspirin (Aspirin Chewable) 81 mg PO DAILY [facility] Last Admin: 02/18/17 08:22 Dose: 81 mg Atorvastatin Calcium (Lipitor) 80 mg PO HS [facility] Last Admin: 02/17/17 21:16 Dose: 80 mg Carvedilol (Coreg) 25 mg PO Q12 [facility] Last Admin: 02/18/17 08:49 Dose: 25 mg Clopidogrel Bisulfate (Plavix) 75 mg PO DAILY [facility] Last Admin: 02/18/17 08:16 Dose: 75 mg Collagenase (Santyl) 1 applic TOP DAILY [facility] Last Admin: 02/18/17 08:25 Dose: 1 applic Ezetimibe (Zetia) 10 mg PO DAILY [facility] Last Admin: 02/18/17 08:50 Dose: 10 mg Epoetin Panchito (Procrit) 8,000 unit SC F [facility] Last Admin: 02/18/17 12:31 Dose: 8,000 unit Ferrous Sulfate (Feosol) 325 mg PO DAILY [facility] Last Admin: 02/18/17 08:17 Dose: 325 mg Furosemide (Lasix) 80 mg PO MWF [facility] Last Admin: 02/18/17 09:00 Dose: 80 mg Guaifenesin/Dextromethorphan (Robitussin Dm) 10 ml PO Q4 PRN PRN Reason: Cough Last Admin: 02/15/17 08:34 Dose: 10 ml Heparin Sodium (Porcine) (Heparin) 5,000 units SC Q12 [facility] PRN Reason: Protocol Last Admin: 02/18/17 09:00 Dose: Not Given Nystatin (Mycostatin Oint) 1 applic TOP TID [facility] Last Admin: 02/18/17 08:24 Dose: 1 oin Pantoprazole Sodium (Protonix Ec Tab) 40 mg PO DAILY [facility] Last Admin: 02/18/17 08:23 Dose: 40 mg Potassium Chloride (K-Dur 20 Meq Er Tab) 20 meq PO ONCE ONE Stop: 02/18/17 15:11 Sevelamer Carbonate (Renvela) 0.8 gm PO TID [facility] Last Admin: 02/18/17 08:16 Dose: 0.8 gm Silver Sulfadiazine (Silvadene 1% 20 Gm) 0 ea TOP BID [facility] Last Admin: 02/18/17 08:25 Dose: 1 applic Tamsulosin HCl (Flomax) 0.4 mg PO BID [facility] Last Admin: 02/18/17 08:49 Dose: 0.4 mg Vitamin B Complex/Vit C/Folic Acid (Nephro-Chris) 1 tab PO DAILY [facility] Last Admin: 02/18/17 11:14 Dose: 1 tab - Labs Labs: 02/18/17 06:35 02/18/17 06:35 PT 11.3 Seconds (9.8-13.1) 02/17/17 05:35 INR 1.1 (0.9-1.2) 02/17/17 05:35 APTT 24.9 Seconds (25.6-37.1) L 02/16/17 10:13 Assessment and Plan (1) ESRD (end stage renal disease) on dialysis Status: Acute (2) Acute kidney failure, unspecified Status: Acute
[2017-02-18] MEDS ORDERED: Sevelamer Carb 0.8 gm/Packet PO SCH (17:00)
--- NOTE | 2017-02-18 17:47 | CP.PCM.DIS ---
Provider - Provider Date of Admission: 01/28/17 19:21 Attending physician: Leno Olguin MD Consults: Dr Prabha Ch Time Spent in preparation of Discharge (in minutes): 30 Diagnosis - Discharge Diagnosis (1) Metabolic encephalopathy Status: Resolved Comment: resolved (2) Diabetes mellitus type 1 Status: Acute Comment: doing well with insulin pump (3) ESRD (end stage renal disease) on dialysis Status: Acute Comment: renal function continue to improve (4) Decubitus skin ulcer Status: Acute Comment: being followed up by podiatry (5) Afib Status: Acute Comment: rate controlled and in sinus. continue Carvedilol. cardiology consult deemed patient do not need terminal operations supervisor anticoagulation. continue ASA Hospital Course - Lab Results Lab Results: Micro Results 01/28/17 01:00 Penis Gram Stain - Final 01/28/17 01:00 Penis Genital Culture - Final Yeast Species Most Recent Lab Values WBC 6.6 K/uL (4.8-10.8) 02/18/17 06:35 RBC 2.94 Mil/uL (4.40-5.90) L 02/18/17 06:35 Hgb 8.6 g/dL (12.0-18.0) L 02/18/17 06:35 Hct 26.7 % (35.0-51.0) L 02/18/17 06:35 MCV 90.8 fl (80.0-94.0) 02/18/17 06:35 MCH 29.1 pg (27.0-31.0) 02/18/17 06:35 MCHC 32.1 g/dL (33.0-37.0) L 02/18/17 06:35 RDW 17.7 % (11.5-14.5) H 02/18/17 06:35 Plt Count 198 K/uL (130-400) 02/18/17 06:35 MPV 8.0 fl (7.2-11.7) 02/18/17 06:35 Neut % (Auto) 69.4 % (50.0-75.0) 02/18/17 06:35 Lymph % (Auto) 18.7 % (20.0-40.0) L 02/18/17 06:35 [place] % (Auto) 7.8 % (0.0-10.0) 02/18/17 06:35 Eos % (Auto) 2.4 % (0.0-4.0) 02/18/17 06:35 Baso % (Auto) 1.7 % (0.0-2.0) 02/18/17 06:35 Neut # 4.6 K/uL (1.8-7.0) 02/18/17 06:35 Lymph # 1.2 K/uL (1.0-4.3) 02/18/17 06:35 [place] # 0.5 K/uL (0.0-0.8) 02/18/17 06:35 Eos # 0.2 K/uL (0.0-0.7) 02/18/17 06:35 Baso # 0.1 K/uL (0.0-0.2) 02/18/17 06:35 PT 11.3 Seconds (9.8-13.1) 02/17/17 05:35 INR 1.1 (0.9-1.2) 02/17/17 05:35 APTT 24.9 Seconds (25.6-37.1) L 02/16/17 10:13 pCO2 34 mm/Hg (35-45) L 01/30/17 20:45 pO2 54 mm/Hg (80-100) L 01/30/17 20:45 HCO3 31.6 mmol/L (21-28) H 01/30/17 20:45 ABG pH 7.57 (7.35-7.45) H 01/30/17 20:45 ABG Total CO2 32.2 mmol/L (22-28) H 01/30/17 20:45 ABG O2 Saturation 96.0 % (95-98) 01/30/17 20:45 ABG O2 Content 11.5 ML/dL (15-23) L 01/30/17 20:45 ABG Base Excess 8.6 mmol/L (-2.0-3.0) H 01/30/17 20:45 ABG Hemoglobin 8.8 g/dL (11.7-17.4) L 01/30/17 20:45 ABG Carboxyhemoglobin 1.9 % (0.5-1.5) H 01/30/17 20:45 POC ABG HHb (Measured) 3.9 % (0.0-5.0) 01/30/17 20:45 ABG Methemoglobin 1.6 % (0.0-3.0) 01/30/17 20:45 ABG O2 Capacity 12.0 mL/dL (16-24) L 01/30/17 20:45 Jam Test Yes 01/30/17 20:45 A-a O2 Difference 103.0 mm/Hg 01/30/17 20:45 Hgb O2 Saturation 92.6 % (95.0-98.0) L 01/30/17 20:45 FiO2 28.0 % 01/30/17 20:45 Sodium 141 mmol/l (132-148) 02/18/17 06:35 Potassium 3.3 MMOL/L (3.6-5.0) L 02/18/17 06:35 Chloride 107 mmol/L (98-107) 02/18/17 06:35 Carbon Dioxide 24 mmol/L (22-30) 02/18/17 06:35 Anion Gap 13 (10-20) 02/18/17 06:35 BUN 30 mg/dl (9-20) H 02/18/17 06:35 Creatinine 1.6 mg/dL (0.8-1.5) H 02/18/17 06:35 Est GFR ( Amer) 53 02/18/17 06:35 Est GFR (Non-Af Amer) 44 02/18/17 06:35 POC Glucose (mg/dL) 286 mg/dL (65-110) H 02/18/17 11:33 Random Glucose 150 mg/dL (75-110) H 02/18/17 06:35 Hemoglobin A1c 8.2 % (4.2-6.5) H 01/31/17 06:00 Calcium 8.3 mg/dL (8.4-10.2) L 02/18/17 06:35 Phosphorus 3.7 mg/dl (2.5-4.5) 02/01/17 11:50 Iron 26 ug/dL (49-181) L 02/01/17 03:26 TIBC 220 ug/dL (250-450) L 02/01/17 03:26 % Saturation 12 % (20-55) L 02/01/17 03:26 Ferritin 309.0 ng/Ml (17.9-464) 02/01/17 03:26 Total Bilirubin 0.7 mg/dl (0.2-1.3) 02/18/17 06:35 AST 57 U/L (17-59) 02/18/17 06:35 ALT 56 U/L (21-72) 02/18/17 06:35 Alkaline Phosphatase 367 U/L (38-126) H D 02/18/17 06:35 NT-Pro-B Natriuret Pep 52873 pg/ml (0-900) H 01/30/17 22:20 Total Protein 5.9 G/DL (6.3-8.2) L 02/18/17 06:35 Albumin 2.9 g/dL (3.5-5.0) L 02/18/17 06:35 Globulin 3.0 gm/dL (2.2-3.9) 02/18/17 06:35 Albumin/Globulin Ratio 1.0 (1.0-2.1) 02/18/17 06:35 Triglycerides 180 mg/DL (0-149) H 01/29/17 13:00 Cholesterol 220 mg/dL (0-199) H 01/29/17 13:00 LDL Cholesterol Direct 143 mg/dL (0-129) H 01/29/17 13:00 HDL Cholesterol 41 MG/DL (30-70) 01/29/17 13:00 TSH 3rd Generation 6.08 mIU/ML (0.46-4.68) H 02/18/17 06:35 PTH Intact Whole Molec 84 pg/mL (14-64) H 02/01/17 11:50 Urine Collection Time 24 HRS 02/11/17 09:00 Urine Total Volume 1025 mL 02/11/17 09:00 Creatinine Clearance 29.0 mL/min (107-139) L 02/11/17 09:00 Ur Protein 24 Hr Calc 543.3 mg/24hr (42-225) H 02/11/17 09:00 Hep Bs Antigen Negative (NEGATIVE) 01/29/17 13:00 Hep Bs Antibody Negative (NEGATIVE) 01/29/17 15:30 - Hospital Course Hospital Course: 66 yo male with history of IDDM, CAD (2 stents) and Seizure was found unresponsive by neighbors after they were alerted by his who was out of state at the time since he was not responding to her calls. He was brought to [facility] where he was found to be in DKA coma and suffering from acute respiratory failure and acute renal failure. Patient was intubated and managed in ICU with parenteral insulin. Imaging showed pneumonia secondary to aspiration. IV antibiotics were started and patient began to improve. 11 days on ventilator, patient was successfully extubated. He was also dialyzed via permacath on his right chest wall. Off ventilator patient was moved out of ICU. He also developed paroxysmal atrial fibrillation which converted to sinus spontaneously. Deconditioned and very weak he was transferred to [facility] so he could undergo PT in acute rehab. His renal function while rehab continued to improved so that he was able get off dialysis. Insulin pump was restarted and patient did well until he was discharged in stable condition. Discharge Exam - Head Exam Head Exam: NORMAL INSPECTION - Eye Exam Eye Exam: absent: Scleral icterus - ENT Exam ENT Exam: Mucous Membranes Moist - Respiratory Exam Respiratory Exam: absent: Rhonchi, Wheezes, Respiratory Distress - Cardiovascular Exam Cardiovascular Exam: REGULAR RHYTHM, +S1, +S2 - GI/Abdominal Exam GI & Abdominal Exam: Soft. absent: Tenderness - Rectal Exam Rectal Exam: Deferred - Neurological Exam Neurological exam: Alert, Oriented x3 - Psychiatric Exam Psychiatric exam: Normal Affect - Skin Skin Exam: Dry, Intact Discharge Plan - Discharge Medications Prescriptions: amLODIPine [Norvasc] 10 mg PO DAILY #30 tab Carvedilol [Coreg] 25 mg PO Q12 #60 tab Clopidogrel [Plavix] 75 mg PO DAILY #30 Ezetimibe [Zetia] 10 mg PO DAILY #30 Furosemide [Lasix] 80 mg PO MWF #12 tab Pantoprazole Sodium [Protonix] 40 mg PO DAILY #30 Rosuvastatin Calcium [Crestor] 40 mg PO DAILY #30 Sevelamer Carbonate [Renvela] 0.8 gm PO TID #90 packet - Follow Up Plan Condition: STABLE Disposition: HOME/ ROUTINE Instructions: Nystatin (On the skin) Referrals: Roger Weldon DPM [[facility]] -
--- NOTE | 2017-02-19 02:06 | PN ---
ENDO FOLLOWUP NOTE DATE: LOCATION: Room 626. 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 His glycemic levels improved remarkably with the initiation of insulin pump as given. The patient has been allowed to self adjust his own basal and bolus insulin regimen as ordered. His latest chemistry showed a BUN of 30, sodium 141, potassium 3.3, chloride 107, CO2 of 24, glucose 150 and creatinine is 1.6. He actually has improved remarkably both clinically and metabolically now with the patient being off hemodialysis at this time as noted. So, the patient will be scheduled for discharge today and has been allowed to self adjust his own basal and bolus insulin regimen as given. We will obtain serial chemistries and supplement accordingly as needed. We will follow. Payton Singleton MD
--- NOTE | 2017-02-21 14:57 | VASCULAR ---
PROCEDURE: Intraoperative Fluoroscopy. HISTORY: removal of R chest permacath FINDINGS: Fluoroscopic assistance was provided. 7.6 seconds of fluoroscopy time utilized during this procedure. Radiation dose = 1.03 mGy Please refer to the operative report for additional details.
== END 2017-02-18 14:40 | disposition home health service (06) | DRG 40 ==
PROC: F08Z4ZZ Home Management Treatment (ICD-10-PCS; 2017-01-28)
PROC: F07L6FZ Therapeutic Exercise Treatment of Musculoskeletal System - Lower Back / Lower Extremity using Assistive, Adaptive, Supportive or Protective Equipment (ICD-10-PCS; 2017-01-28)
PROC: F07Z9FZ Gait Training/Functional Ambulation Treatment using Assistive, Adaptive, Supportive or Protective Equipment (ICD-10-PCS; 2017-01-28)
PROC: F07Z4FZ Wheelchair Mobility Treatment using Assistive, Adaptive, Supportive or Protective Equipment (ICD-10-PCS; 2017-01-28)
PROC: F06Z6ZZ Communicative/Cognitive Integration Skills Treatment (ICD-10-PCS; 2017-01-28)
PROC: 0HBMXZZ Excision of Right Foot Skin, External Approach (ICD-10-PCS; 2017-02-09)
PROC: 0HBMXZZ Excision of Right Foot Skin, External Approach (ICD-10-PCS; 2017-02-16)
PROC: 05PYX3Z Removal of Infusion Device from Upper Vein, External Approach (ICD-10-PCS; principal; 2017-02-17)
DX: G93.41 Metabolic encephalopathy (principal); N18.6 End stage renal disease; N17.9 Acute kidney failure, unspecified; L89.150 Pressure ulcer of sacral region, unstageable; I12.0 Hypertensive chronic kidney disease with stage 5 chronic kidney disease or end stage renal disease; E10.21 Type 1 diabetes mellitus with diabetic nephropathy; E87.1 Hypo-osmolality and hyponatremia; N25.81 Secondary hyperparathyroidism of renal origin; L97.419 Non-pressure chronic ulcer of right heel and midfoot with unspecified severity; I48.0 Paroxysmal atrial fibrillation; R53.81 Other malaise; E10.22 Type 1 diabetes mellitus with diabetic chronic kidney disease; E10.42 Type 1 diabetes mellitus with diabetic polyneuropathy; Z95.5 Presence of coronary angioplasty implant and graft; I25.10 Atherosclerotic heart disease of native coronary artery without angina pectoris; Z88.0 Allergy status to penicillin; Z99.2 Dependence on renal dialysis; Z74.01 Bed confinement status; E10.65 Type 1 diabetes mellitus with hyperglycemia; E10.649 Type 1 diabetes mellitus with hypoglycemia without coma; Z79.4 Long term (current) use of insulin; E83.39 Other disorders of phosphorus metabolism; E87.70 Fluid overload, unspecified; Z96.41 Presence of insulin pump (external) (internal); R33.9 Retention of urine, unspecified; D63.1 Anemia in chronic kidney disease; E78.5 Hyperlipidemia, unspecified; F43.22 Adjustment disorder with anxiety; M21.371 Foot drop, right foot